=== PATIENT | male | born 1935 | race Caucasian/White ===

== ENCOUNTER → 2016-11-29 | Outpatient (CLI) | payer BC ==
[~2016-11-29] MED LIST: ALL300 PO; ATOR-24 PO; CLC6 PO; GATI1SOL2 OPL; METO50TA7 PO; MULT-208 PO; PRED-301 PO; PRED1SUS17 OPB; WARF3TAB PO
[2016-11-29 09:34] LABS: BASO % 0.7 %; BASO ABS # 0.03 K/uL (0-0.2); COMPLETE YES; EOS % 4.1 %; HEMATOCRIT 39.3 % (42-52); IG% 0.5 %; LYMPH % 34.2 %; LYMPH ABS # 1.52 K/uL (1.2-3.4); MEAN CELL VOLUME 99.7 fL (80-100); MEAN CORPUSCULAR HEMOGLOBIN 34.8 pg (25-34); MEAN CORPUSCULAR HGB CONC 34.9 g/dl (32-36); MEAN PLATELET VOLUME 10.2 fL (7.4-10.4); MONO % 12.6 %; NEUT % 47.9 %; PLATELET COUNT 155 K/uL (130-400); RED BLOOD COUNT 3.94 M/uL (4.7-6.1); WHITE BLOOD COUNT 4.44 K/uL (4.8-10.8)
[2016-11-29 09:49] LABS: ALT/SGPT 20 U/L (12-78); AST/SGOT 28 U/L (15-37); BLOOD UREA NITROGEN 17 mg/dl (7-18); BUN/CREATININE RATIO 18.8 (10-20); CALCIUM 9.5 mg/dl (8.5-10.1); CARBON DIOXIDE 25 mmol/L (21-32); CHLORIDE 106 mmol/L (98-107); CHOLESTEROL 111 mg/dl (0-200); CHOLESTEROL/HDL RATIO 2.1; CREATININE 0.92 mg/dl (0.60-1.40); GLUCOSE 108 mg/dl (70-99); HDL CHOLESTEROL 53 mg/dl; LDL CHOLESTEROL CALCULATED 44 mg/dl; POTASSIUM 4.2 mmol/L (3.5-5.1); SODIUM 139 mmol/L (136-145); TRIGLYCERIDES 68 mg/dl (0-150); VERY LOW DENSITY LIPOPROT CALC 14 mg/dl
[2016-11-29 09:54] LABS: ALB/GLOB RATIO 0.9 (0.9-2); ALKALINE PHOSPHATASE 121 U/L (45-117); FERRITIN 573.1 ng/ml (8.0-388.0); TOTAL IRON BINDING CAPACITY 284 mcg/dl (250-450)
[2016-11-29 10:04] LABS: ESTIMATED AVERAGE GLUCOSE 111 mg/dl; HA1C FLAG Normal (Normal)
== END | disposition home or self-care (01) ==
LOC: C.LAB1850 08:40
PROVIDERS: ATTEND Internal Medicine
DX: N28.9 Disorder of kidney and ureter, unspecified (principal); E87.5 Hyperkalemia; M10.9 Gout, unspecified; E78.5 Hyperlipidemia, unspecified; D64.9 Anemia, unspecified; R73.9 Hyperglycemia, unspecified

== ENCOUNTER → 2017-05-16 | Outpatient (CLI) | payer BC ==
[2017-05-16 12:08] LABS: BASO % 0.4 %; BASO ABS # 0.03 K/uL (0-0.2); COMPLETE YES; EOS % 2.4 %; IG% 0.3 %; LYMPH % 29.7 %; LYMPH ABS # 2.01 K/uL (1.2-3.4); MEAN CELL VOLUME 101.8 fL (80-100); MEAN CORPUSCULAR HEMOGLOBIN 34.7 pg (25-34); MEAN CORPUSCULAR HGB CONC 34.1 g/dl (32-36); MEAN PLATELET VOLUME 10.6 fL (7.4-10.4); NEUT % 55.2 %; PLATELET COUNT 130 K/uL (130-400); RED BLOOD COUNT 3.83 M/uL (4.7-6.1); WHITE BLOOD COUNT 6.76 K/uL (4.8-10.8)
[2017-05-16 12:20] LABS: ALT/SGPT 26 U/L (12-78); AST/SGOT 32 U/L (15-37); BLOOD UREA NITROGEN 19 mg/dl (7-18); BUN/CREATININE RATIO 20.4 (10-20); CALCIUM 9.3 mg/dl (8.5-10.1); CARBON DIOXIDE 27 mmol/L (21-32); CHLORIDE 105 mmol/L (98-107); CREATININE 0.93 mg/dl (0.60-1.40); GLUCOSE 100 mg/dl (70-99); POTASSIUM 3.9 mmol/L (3.5-5.1); SODIUM 137 mmol/L (136-145); URIC ACID 4.1 mg/dl (2.6-7.2)
[2017-05-16 12:31] LABS: ALKALINE PHOSPHATASE 105 U/L (45-117); CHOLESTEROL 115 mg/dl (0-200); CHOLESTEROL/HDL RATIO 2.3; HDL CHOLESTEROL 49 mg/dl; LDL CHOLESTEROL CALCULATED 45 mg/dl; TRIGLYCERIDES 104 mg/dl (0-150); VERY LOW DENSITY LIPOPROT CALC 21 mg/dl
== END | disposition home or self-care (01) ==
LOC: C.LAB1850 10:29
PROVIDERS: ATTEND Internal Medicine
DX: E78.5 Hyperlipidemia, unspecified (principal); I10 Essential (primary) hypertension; D64.9 Anemia, unspecified; I48.0 Paroxysmal atrial fibrillation; M10.9 Gout, unspecified

== ENCOUNTER 2017-07-07 01:10 | Emergency (ER) | payer BC ==
[~2017-07-07] VITALS: Ht 175.3 cm; Wt 79.5 kg
[~2017-07-07 01:10] MED LIST changes: -MULT-208 PO; -PRED1SUS17 OPB
[2017-07-07 01:15] VITALS: TEMP 37; Ht 175.3 cm; Wt 79.5 kg
--- NOTE | 2017-07-07 01:42 | EMERGENCY ROOM VISIT NOTE ---
History First contact with patient: 01:30 Chief Complaint: BLEEDING Stated Complaint: BLEEDING FROM TOOTH EXTRACTION Nursing Triage Summary: pt had tooth pulled on left upper and he is unable to control the bleeding History of Present Illness The patient is a 81 year old male who presents to the Emergency Room with complaints of bleeding gums. The patient states that he had a left upper tooth extracted 2 days ago. He reports that this seemed to be healing well until this morning, when he developed bleeding. He takes Coumadin for a mechanical valve. The patient denies any pain. He denies any puslike drainage. Review of Systems A complete 10 point review of systems was reviewed with the patient with pertinent positives and negatives as per history of present illness. All else were negative. Social History Smoking Status: Never Smoker Alcohol Use: none Drug Use: none Marital Status: Occupation Status: retired Current/Historical Medications Scheduled Atorvastatin (Lipitor), 40 MG PO HS Metoprolol Succ (Toprol Xl) (Toprol-Xl), 50 MG PO QAM Multiple Vitamins W/ Minerals (Daily Multi), 1 TAB PO DAILY Prednisolone Acetate (Ophth) (Prednisolone Acetate), 3 DROPS OPB TID Warfarin Sodium (Coumadin), 3 MG PO QPM Scheduled PRN Allopurinol (Allopurinol), 300 MG PO DAILY PRN for GOUT Colchicine (Colcrys), 0.6 MG PO DAILY PRN for GOUT Prednisone (Prednisone), 5 MG PO DAILY PRN for GOUT Physical Exam Vital Signs Date Time Temp Pulse Resp B/P (MAP) Pulse Ox O2 Delivery O2 Flow Rate FiO2 07/07/17 03:00 62 18 106/68 97 07/07/17 01:15 37.0 74 18 149/78 95 Room Air Physical Exam VITALS: Vitals are noted on the nurse's note and reviewed by myself. Vital signs stable. GENERAL: This is a 81-year-old male, resting comfortably in bed, well-developed well-nourished. SKIN: There is some bruising to the left cheek. MOUTH: There is evidence of recent extraction of tooth #12. There is mild oozing blood around the sutures. There is no active bleeding. NEURO: Patient was alert and oriented to person place and time. Medical Decision & Procedures Laboratory Results 07/07/17 01:52 Red Blood Count 3.77, Mean Corpuscular Volume 100.5, Mean Corpuscular Hemoglobin 33.2, Mean Corpuscular Hemoglobin Concent 33.0, Mean Platelet Volume 9.7, Neutrophils (%) (Auto) 57.0, Lymphocytes (%) (Auto) 28.5, Monocytes (%) ( Auto) 10.1, Eosinophils (%) (Auto) 3.4, Basophils (%) (Auto) 0.5, Neutrophils # (Auto) 3.41, Lymphocytes # (Auto) 1.70, Monocytes # (Auto) 0.60, Eosinophils # ( Auto) 0.20, Basophils # (Auto) 0.03 Test 07/07/17 01:52 White Blood Count 5.97 K/uL (4.8-10.8) Red Blood Count 3.77 M/uL (4.7-6.1) Hemoglobin 12.5 g/dL (14.0-18.0) Hematocrit 37.9 % (42-52) Mean Corpuscular Volume 100.5 fL (80-100) Mean Corpuscular Hemoglobin 33.2 pg (25-34) Mean Corpuscular Hemoglobin Concent 33.0 g/dl (32-36) Platelet Count 129 K/uL (130-400) Mean Platelet Volume 9.7 fL (7.4-10.4) Neutrophils (%) (Auto) 57.0 % Lymphocytes (%) (Auto) 28.5 % Monocytes (%) (Auto) 10.1 % Eosinophils (%) (Auto) 3.4 % Basophils (%) (Auto) 0.5 % Neutrophils # (Auto) 3.41 K/uL (1.4-6.5) Lymphocytes # (Auto) 1.70 K/uL (1.2-3.4) Monocytes # (Auto) 0.60 K/uL (0.11-0.59) Eosinophils # (Auto) 0.20 K/uL (0-0.5) Basophils # (Auto) 0.03 K/uL (0-0.2) RDW Standard Deviation 52.5 fL (36.4-46.3) RDW Coefficient of Variation 14.4 % (11.5-14.5) Immature Granulocyte % (Auto) 0.5 % Immature Granulocyte # (Auto) 0.03 K/uL (0.00-0.02) Prothrombin Time 24.9 SECONDS (9.0-12.0) Prothromb Time International Ratio 2.2 (0.9-1.1) Activated Partial Thromboplast Time 40.2 SECONDS (21.0-31.0) Partial Thromboplastin Ratio 1.5 Medications Administered Medications (Trade) Dose Ordered Sig/Emily Route Start Time Stop Time Status Last Admin Dose Admin Aminocaproic Acid/ Sterile Water DOSE: Hold 10ml of solut... NOW STAT PO 07/07/17 02:27 07/07/17 02:28 DC 07/07/17 02:54 80 ML Medical Decision The patient was evaluated as above. The packing was removed from the area of the tooth extraction. There was some oozing bleeding around the sutures. PT/ INR was checked and is mildly subtherapeutic. Patient has a mild anemia which is normal for him. The bleeding slowed down throughout his stay. Patient was given Amicar mouthwash. He will follow-up with his dentist. He verbalized understanding of my assessment and treatment plan was discharged home in good condition. Medication Reconcilliation Current Medication List: was personally reviewed by me Blood Pressure Screening Patient's blood pressure: Normal blood pressure Impression Primary Impression: Bleeding from wound Departure Information Dispostion Home / Self-Care Condition GOOD Referrals No Doctor, Assigned (PCP) Patient Instructions [facility] Additional Instructions Hold 10 mL of the Amicar solution in your mouth in the area of the dental extraction for 2 minutes, then spit out. Repeat this every 1-2 hours until the solution is gone. Call your dentist on Saturday to schedule follow-up. Return to the emergency department with increased bleeding or any other new/ concerning symptoms.
[2017-07-07] MEDS ORDERED: PRED1SUS17 OPB (02:00)
[2017-07-07] MEDS ORDERED: MULT-208 PO (02:00)
[2017-07-07 02:06] LABS: BASO % 0.5 %; BASO ABS # 0.03 K/uL (0-0.2); COMPLETE YES; EOS % 3.4 %; HEMATOCRIT 37.9 % (42-52); IG% 0.5 %; LYMPH % 28.5 %; MEAN CELL VOLUME 100.5 fL (80-100); MEAN CORPUSCULAR HEMOGLOBIN 33.2 pg (25-34); MEAN PLATELET VOLUME 9.7 fL (7.4-10.4); MONO % 10.1 %; PLATELET COUNT 129 K/uL (130-400); RED BLOOD COUNT 3.77 M/uL (4.7-6.1); WHITE BLOOD COUNT 5.97 K/uL (4.8-10.8)
[2017-07-07 02:11] LABS: INR 2.2 (0.9-1.1); PARTIAL THROMBOPLASTIN RATIO 1.5; PROTHROMBIN TIME (PATIENT) 24.9 SECONDS (9.0-12.0)
[2017-07-07] MEDS ORDERED: AMINOCAPROIC ACID INJ 5,000 MG, WATER, STERILE FOR INJ 80 ML PO STA ×2 (02:27)
[2017-07-07] MEDS ORDERED: AMINOCAPROIC (AMICAR) 5% MOUTHWASH PO ONE (02:30)
[2017-07-07 03:00] VITALS: BP 106/68; PULSE 62; O2SAT 97
== END 2017-07-07 03:01 | disposition home or self-care (01) ==
LOC: C.EDB 01:11
DX: K91.840 Postprocedural hemorrhage of a digestive system organ or structure following a digestive system procedure (principal); Y84.8 Other medical procedures as the cause of abnormal reaction of the patient, or of later complication, without mention of misadventure at the time of the procedure; Z98.818 Other dental procedure status; Z95.2 Presence of prosthetic heart valve; Z79.01 Long term (current) use of anticoagulants; Z79.899 Other long term (current) drug therapy; D64.9 Anemia, unspecified

== ENCOUNTER → 2017-12-26 | Outpatient (CLI) | payer BC ==
[~2017-12-26] MED LIST changes: -GATI1SOL2 OPL; -METO50TA7 PO; +METO50TA8 PO; +MULT-208 PO; +PRED1SUS17 OPB
--- NOTE | 2017-12-26 11:13 | DIAGNOSTIC IMAGING REPORT ---
CHEST 2 VIEWS ROUTINE CLINICAL HISTORY: R05 [id number] dyspnea COMPARISON STUDY: No previous studies for comparison. FINDINGS: Prior median sternotomy and valve replacement. Bipolar cardiac pacemaker. Mild interstitial prominence throughout both hemithoraces. No well-defined focal infiltrate. IMPRESSION: Mild that made in lower lung interstitial prominence bilaterally. This is nonspecific but may indicate a mild basilar pneumonitis. The above report was generated using voice recognition software. It may contain grammatical, syntax or spelling errors. Electronically signed by: Darian Thomas M.D. 12/26/2017 11:11 AM Dictated Date/Time: 12/26/2017 11:10 AM
== END | disposition home or self-care (01) ==
LOC: C.RAD1850 11:03
PROVIDERS: ATTEND Internal Medicine
DX: R05 Cough (principal); R91.8 Other nonspecific abnormal finding of lung field

== ENCOUNTER → 2018-01-31 | Outpatient (CLI) | payer BC ==
--- NOTE | 2018-01-31 09:05 | DIAGNOSTIC IMAGING REPORT ---
CHEST 2 VIEWS ROUTINE HISTORY: COUGH COMPARISON: Chest 12/26/2017. FINDINGS: No new focal lung consolidations. The heart is normal in size. Left-sided dual-chamber pacemaker. Poststernotomy changes. Cardiac valve prosthesis. Cholecystectomy. Mild bibasilar interstitial thickening which is likely chronic. IMPRESSION: No significant change compared to the prior study. No acute process. Electronically signed by: Rainer Charles M.D. 01/31/2018 9:04 AM Dictated Date/Time: 01/31/2018 8:57 AM
== END ==
LOC: C.RAD1850 08:39
PROVIDERS: ATTEND Physician Assistant
DX: R05 Cough (principal)

== ENCOUNTER → 2018-02-27 | Outpatient (CLI) | payer BC ==
[2018-02-27 10:23] LABS: HEMATOCRIT 37.7 % (42-52); HEMOGLOBIN 12.9 g/dL (14.0-18.0); MEAN CORPUSCULAR HEMOGLOBIN 34.2 pg (25-34); MEAN CORPUSCULAR HGB CONC 34.2 g/dl (32-36); PLATELET COUNT 175 K/uL (130-400); RED CELL DISTRIBUTION WIDTH CV 14.5 % (11.5-14.5); RED CELL DISTRIBUTION WIDTH SD 52.9 fL (36.4-46.3)
[2018-02-27 10:37] LABS: ALT/SGPT 17 U/L (12-78); AST/SGOT 29 U/L (15-37); BLOOD UREA NITROGEN 18 mg/dl (7-18); CARBON DIOXIDE 27 mmol/L (21-32); CHOLESTEROL 72 mg/dl (0-200); GLUCOSE 99 mg/dl (70-99); LDL CHOLESTEROL CALCULATED 23 mg/dl; POTASSIUM 3.7 mmol/L (3.5-5.1); SODIUM 133 mmol/L (136-145); URIC ACID 4.9 mg/dl (2.6-7.2)
[2018-02-27 11:07] LABS: HEMOGLOBIN A1C 5.7 % (4.5-5.6)
== END | disposition home or self-care (01) ==
LOC: C.LAB1850 09:05
PROVIDERS: ATTEND Internal Medicine
DX: E78.5 Hyperlipidemia, unspecified (principal); M10.9 Gout, unspecified; R73.9 Hyperglycemia, unspecified

== ENCOUNTER → 2018-02-28 | Outpatient (CLI) | payer BC | END | disposition home or self-care (01) | LOC: C.LABSPEC 08:48 | PROVIDERS: ATTEND Physician Assistant | DX: R19.7 Diarrhea, unspecified (principal) ==

== ENCOUNTER → 2018-03-01 | Outpatient (CLI) | payer BC | END | disposition home or self-care (01) | LOC: C.LABSPEC 09:10 | PROVIDERS: ATTEND Physician Assistant | DX: R19.7 Diarrhea, unspecified (principal) ==

== ENCOUNTER → 2018-05-09 | Outpatient (CLI) | payer BC | END | disposition home or self-care (01) | LOC: C.LABSPEC 14:14 | PROVIDERS: ATTEND Internal Medicine | DX: R19.7 Diarrhea, unspecified (principal); A04.72 Enterocolitis due to Clostridium difficile, not specified as recurrent ==

== ENCOUNTER → 2018-05-26 | Outpatient (CLI) | payer BC | END | disposition home or self-care (01) | LOC: C.LABSPEC 09:57 | PROVIDERS: ATTEND Internal Medicine | DX: A04.72 Enterocolitis due to Clostridium difficile, not specified as recurrent (principal) ==

== ENCOUNTER 2022-06-21 12:58 | Inpatient (IN) ==
[2022-06-21] MEDS ORDERED: ALBUT/IPRATROP 3MG/0.5MG NEB 3 ML VIAL NEB STA ×2 (13:24→14:26)
[2022-06-21 14:07] LABS: Base Excess VBG 10.2 mEq/L; HCO3 VBG 33 mmol/L; Oxygen Saturation VBG < 60.0 %; PCO2 VBG 37 mmHg (38-50); PO2 VBG 13 mmHg; pH VBG 7.56 (7.36-7.41)
[2022-06-21 14:18] LABS: Basophils # (auto) 0.01 K/uL (0-0.2); Basophils % (auto) 0.1 %; Eosinophils # (auto) 0.01 K/uL (0-0.50); Eosinophils % (auto) 0.1 %; Hematocrit (blood only) 34.2 % (40.1-51.0); Hemoglobin 11.7 g/dl (14.0-18.0); Immature Granulocytes # (auto) 0.11 K/uL (0.00-0.02); Immature Granulocytes % (auto) 1.2 %; Lymphocytes # (auto) 0.71 K/uL (1.2-3.4); Mean Corpuscular Hgb Conc 34.2 g/dL (32.0-36.0); Mean Corpuscular Volume 96.3 fL (80.0-100.0); Mean Platelet Volume 10.1 fL (9.4-12.4); Monocytes # (auto) 0.46 K/uL (0.24-0.82); Monocytes % (auto) 5.2 %; Neutrophils # (auto) 7.61 K/uL (1.4-6.5); Neutrophils % (auto) 85.4 %; Platelet Count 217 K/uL (130-400); RDW Coefficient of Variation 13.6 % (11.5-14.5); RDW Standard Deviation 48.7 fL (36.4-46.3); Red Blood Count 3.55 M/uL (4.63-6.08); White Blood Count 8.91 K/ul (4.8-10.8)
--- NOTE | 2022-06-21 14:19 | XRay Report ---
XR chest 1V portable HISTORY: 86 years-old Male Chest Pain acute atypical chest pain COMPARISON: Chest radiographs 06/08/2022 TECHNIQUE: Portable AP view of the chest FINDINGS: Cardiac mediastinal and hilar silhouettes are unchanged. Question pulmonary arterial hypertension. Pr ior median sternotomy with cardiac valvular prosthesis and left subclavian pacer. No pneumothorax. Un changed reticular interstitial coarsening. No pneumothorax, large pleural effusion or new airspace co nsolidation identified. Bones appear grossly intact. Surgical clips of the upper abdomen. IMPRESSION: Pulmonary fibrosis without acute process. ACT 112: Negative or not required by law. The above report was generated using voice recognition software. It may contain grammatical, syntax o r spelling errors. Electronically signed by: Rafa Jackson M.D. 06/21/2022 2:18 PM
[2022-06-21] MEDS ORDERED: methylPREDNISolone 125 MG/2 ML VIAL IV STA (14:26)
[2022-06-21 14:39] LABS: Influenza A virus by PCR Negative (Neg); Influenza B virus by PCR Negative (Neg); RSV by PCR Negative (Neg)
[2022-06-21 14:40] LABS: Anion Gap 8 (3-11); BUN Creatinine Ratio 37.7 (10-20); Blood Urea Nitrogen 29 mg/dl (6-23); Calcium 9.2 mg/dl (8.5-10.1); Carbon Dioxide 30 mmol/L (21-32); Chloride 89 mmol/L (98-107); Est GFR (African American) 96.6 ml/min; Est GFR (Non-African American) 83.3 ml/min; Glucose 186 mg/dl (70-99(Fasting)); Lipase 31 U/L (11-82); Potassium 3.4 mmol/L (3.5-5.1); Sodium 127 mmol/L (136-145)
[2022-06-21 14:41] LABS: Troponin I High Sensitivity 20.5 pg/ml (0-20)
[2022-06-21 14:50] LABS: SARS CoV2 RNA(COVID-19) InHosp POSITIVE (Negative)
[2022-06-21 14:59] LABS: INR 3.3 (0.9-1.1); Partial Thromboplastin Ratio 1.8; Prothrombin Time 33.2 Seconds (9.0-12.0)
[2022-06-21 15:57] LABS: Partial Thromboplastin Time 49.8 Seconds (21.0-31.0)
--- NOTE | 2022-06-21 16:22 | History & Physical Report ---
Date of Service June 21, 2022 Assessment & Plan (1) Acute exacerbation of idiopathic pulmonary fibrosis: Plan: Now needing increased supplemental O2, but really the issue is his significant work of breathing. RR presently 50-60 times per minute. - BiPap ordered - Evaluated by ICU attending; plan for PCU as patient is now DNR/DNI - Steroids, breathing treatments - Add procalcitonin. If positive, would consider abx as temp is 37.6. - Added morphine solution for comfort. (2) Expressive aphasia: Plan: In ER at approx. 3:30pm, daughter reported new onset expressive aphasia. Mostly Wernicke's where patient is trying to answer and answers with nonsensical words. Neuro exam otherwise non-focal. - With INR of 3.3, he could not get get tPA. He is not stable for CT at this point, so will attempt to stabilize from breathing standpoint and discuss imaging with ICU provider. - Re-evaluated at 5:22pm; speech is now mostly returned to normal. (3) COVID-19: Plan: First symptoms possible ~06/08 vs. 06/20. Had some transient shortness of breath a few days after ER visit on 06/05 that resolved. Now with increased WOB as above. - Dexamethasone - Remdesivir (4) Hyponatremia: Plan: Na was 127 on admission. Likely low solute with SIADH possible. - Urine osms - Monitor (5) CAD (coronary artery disease): Plan: - Continue statin as able (6) Paroxysmal A-fib: Plan: With complete heart block in paced rhythm. - INR 3.3 on presentation - Hold warfarin (7) HTN (hypertension): Plan: - Hold home meds for now (8) DVT prophylaxis: Plan: SCDs, warfarin for afib DNR/DNI - Initially wanted to be full code, but after discussion with ICU attending, decided to be DNR/DNI. Willing to trial BiPap. Will continue plan for treatment, but also add morphine for shortness of breath. Will consult pal liative care. History of Present Illness Primary Care Provider: Benoit Stauffer MD 86yo M w/ hx of advanced IPF who presents with increased shortness of breath. Was in the ER in late May with constipation. Had increased shortness of breath a few days after that. Was seen by pulm on 08/30 with steroids. Somewhat improved, but now worse. Daughter reports work of breathing has increased substantially in the last 24 hours. In the ER on interview, he responds somewhat sensibly, but responds with word salad at times, mixing up words and saying things like "They wanted me to go get the gasoline." Appears to understand everything and follows commands. Allergies Allergy/AdvReac Type Severity Reaction Status Date / Time No Known Drug Allergies Allergy Unknown Verified 06/21/22 15:31 Home Medications Medication Instructions Recorded Confirmed Type metoprolol succinate 50 mg 50 mg PO QAM #90 tabs 12/13/20 06/21/22 Rx tablet,extended release 24 hr allopurinol 300 mg tablet 300 mg PO DAILY #90 tabs 02/19/22 06/21/22 Rx amoxicillin 500 mg tablet 500 mg PO .COMPLEX #4 tabs 02/19/22 06/21/22 Rx warfarin 3 mg tablet 3 mg PO QPM #90 tabs 02/19/22 06/21/22 Rx atorvastatin 20 mg tablet 20 mg PO DAILY #90 tabs 03/08/22 06/21/22 Rx Oxygen Home #4 L 06/12/22 06/21/22 Rx Portable Oxygen #1 ea 06/12/22 06/21/22 Rx prednisone 10 mg tablet 30 mg PO DAILY 5 days #15 tabs 06/12/22 06/21/22 Rx Past Med/Surg History Medical History Acute exacerbation of idiopathic pulmonary fibrosis Anemia Anticoagulant long-term use Elevated prostate specific antigen (PSA) Hearing loss High serum ferritin HTN (hypertension) Hyperlipidemia Hypoxemia Hypoxemia Interstitial lung disease IPF (idiopathic pulmonary fibrosis) Mediastinal adenopathy Multiple lung nodules on CT Pacemaker Paroxysmal A-fib Paroxysmal ventricular tachycardia Subdural hematoma (01/2019) Surgical History Hx of cholecystectomy Hx of tonsillectomy 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) S/P craniotomy (01/2019) Family History Father Lung cancer Sister Breast cancer Unknown Hypertension Other Anticoagulant long-term use Family history non-contributory Hyperlipidemia Pacemaker Denies family history of Colon cancer Ovarian cancer Prostate cancer Myocardial infarction Social History Smoking Status: Former smoker Tobacco Type: Cigarettes Age Quit Using Tobacco: 41; packs per day: 0.25; Years Smoked: 4; Cigarettes Per Day: 1/4 of a pack; Number of Years Since Quit: 45; Second Hand Exposure: Yes; Hx Alcohol Use: Yes Alcohol type: beer Alcohol Intake Frequency Comment: 1-2 per day Hx Substance Use: No Preferred Language: Urdu Communication Ability: Effective Visual Impairment: No Limitations Hearing Ability: Normal [employer] Required: No Beliefs That Will Affect Care: None marital status: Current Living Situation: Alone current occupational status: retired Feels Safe at Home: Yes Childhood Exposure to Second-Hand Smoke: Yes Dental Care, Regularly: Yes Physical Activity Frequency: Does not Exercise Seatbelt Use: always Sunscreen Use: No Assistive Devices: None Review of Systems Review of Systems: All systems reviewed & are unremarkable except as noted in HPI & below Physical Exam Constitutional: + acute distress, + ill appearing and + cachectic Eyes: EOM intact bilaterally; no conjunctival abnormality ENMT: external ear and nose normal, oropharynx normal Neck: trachea midline, no thyromegaly normal visual inspection Respiratory: + respiratory distress, + uses accessory muscles and + tachypneic; no cough and + not able to speak in complete sentence Auscul tation: + crackles Cardiovascular: RRR, no murmur, no edema Gastrointestinal (Abdomen): Inspection/Auscultation: abdomen normal to inspection; abdomen not distended Musculoskeletal: no cyanosis or clubbing, extremities motor strength 5/5 Skin: no rashes, warm and dry Neurologic: moves all extremities and awake Speech / Cognition: + expressive aphasia (Mixes up lots of words; has some trouble getting them out) Psychiatric: Orientation: alert, oriented to person and cooperative Results & Data Results & Data ([facility]) Vital Signs (Past 12 Hours) Vital Signs Temp Pulse Pulse Resp BP BP Pulse Ox 06/21/22 15:59 88 20 107/56 L 95 06/21/22 13:48 06/21/22 13:34 5 L 06/21/22 13:33 89 20 98/55 L 99 06/21/22 13:04 37.6 C H 93 H 17 115/65 100 O2 Del Method O2 Flow Rate 06/21/22 15:59 Nasal Cannula 2 06/21/22 13:48 Nasal Cannula 5 06/21/22 13:34 Oxymask, Nebulizer 5 06/21/22 13:33 Nasal Cannula 5 06/21/22 13:04 Room Air Code Status & VTE Plan VTE Prophylaxis Plan VTE Prophylaxis will be ordered: Yes PG Care Time/CCT Total # of Minutes Spent Total Time Spent with Patient: Total time spent is greater than 50% in coordination of care (as documented) at patient's floor/unit and/or counseling patient: Coding Level of Care Code 12342 Initial Inpt Care Lvl 3 Diagnoses Acute exacerbation of idiopathic pulmonary fibrosis J84.112 Expressive aphasia R47.01 COVID-19 U07.1 Hyponatremia E87.1 CAD (coronary artery disease) I25.10 Associated angina: without angina Coronary Disease-Associated Artery/Lesion type: [place] artery [place] vs. transplanted heart: [place] heart Paroxysmal A-fib I48.0 HTN (hypertension) I10 DVT prophylaxis Z29.9 (1) CAD (coronary artery disease) Associated angina: without angina Coronary Disease-Associated Artery/Lesion type: [place] artery [place] vs. transplanted heart: [place] heart Qualified Code(s): I25.10 - Atherosclerotic heart disease of [place] coronary artery without angina pectoris
--- NOTE | 2022-06-21 16:48 | Critical Care Consultation ---
Date of Consultation June 21, 2022 Assessment & Plan (1) Acute and chronic respiratory failure with hypoxia: Reason Critically Ill: 86-year-old male with idiopathic pulmonary fibrosis: End- stage with acute on chronic hypoxic respiratory failure and COVID-19 positivity PLAN: Resp: Acute exacerbation of end-stage idiopathic pulmonary fibrosis -Recommend trial of high-dose steroids COVID-19 -Daughter requesting ivermectin: Not indicated -Trial of remdesivir -Antibiotics for community-acquired pneumonia: Bitterly unclear benefit -DNI in event of respiratory insufficiency -Focus more on quality of life versus extension of life CV: History sick sinus syndrome/complete heart block -Pacemaker present Fluids/Renal: Limit extraneous fluids in an attempt to limit pulmonary edema ID: See COVID-pneumonia above GI/Nutrition: Agreeable with diet as patient wishes -Focus more on comfort Heme: Systemic anticoagulation -Trend INR DVT prophylaxis: Therapeutic INR Endocrine: Steroids for exacerbation of IPF Vascular access: Peripheral IVs Code Status: DNR/DNI -Family requesting reconciliation analyst for last rights Disposition: Inpatient with isolation -Would consider at home hospice, patient desires to transition to outpatient management if possible -Patient critically ill, discussed with hospitalist service, focusing more on patient comfort versus aggressive treatment -Believe the patient is an end-stage, terminal condition with regards to his restrictive lung disease and is at high risk for severe decompensation. (2) COVID-19: (3) Sarcopenia: (4) IPF (idiopathic pulmonary fibrosis): (5) Acute exacerbation of idiopathic pulmonary fibrosis: History of Present Illness Reason for Consultation: Acute on chronic hypoxic respiratory failure, COVID-19 positive Requesting Physician: Mendez Mcpherson Attending Physician: Mendez Mcpherson History of Present Illness Patient is an 86-year-old male with a significant past medical history for idiopathic pulmonary fibrosis who was recently within the last 3 months started on oxygen therapy. I have reviewed the pulmonary outpatient notes, patient was referred to palliative care as he has significant sarcopenia and trialed on steroids. He presented to the emergency department today for increasing hypoxia and was found to be COVID-positive. Initial discussions with the hospitalist service indicated that the patient was desiring full aggressive treatment including possible intubation and mechanical ventilation. During my evaluation the patient had significant dyspnea with conversation. The history was supplemented from medical records with additional history coming from the patient's daughter at bedside. We discussed long-term cares and probable outcome, he has a DLCO of 40%, is on chronic oxygen therapy, and if he were to be intubated I did not see any significant probability of him being able to liberate from the ventilator and would likely necessitate tracheostomy should he survive the initial hypoxic events associated with COVID induced pneumonia. Patient was able to clarify that he would like to pass away with dignity and w ould rather focus more on comfort. Ideally he would like to transfer home if possible. We discussed risks and benefits of intubation as well as noninvasive mechanical ventilation with a mask, there is acknowledgment that even the CPAP/BiPAP mask would be significantly uncomfortable after 24 to 48 hours. Patient and patient's daughter were in agreement with DNR/DNI with continuing current treatments which are limited in the setting of COVID-19 and focusing more on patient comfort. Allergies Allergy/AdvReac Type Severity Reaction Status Date / Time No Known Drug Allergies Allergy Unknown Verified 06/21/22 15:31 Home Medications Medication Instructions Recorded Confirmed Type metoprolol succinate 50 mg 50 mg PO QAM #90 tabs 12/13/20 06/21/22 Rx tablet,extended release 24 hr allopurinol 300 mg tablet 300 mg PO DAILY #90 tabs 02/19/22 06/21/22 Rx amoxicillin 500 mg tablet 500 mg PO .COMPLEX #4 tabs 02/19/22 06/21/22 Rx warfarin 3 mg tablet 3 mg PO QPM #90 tabs 02/19/22 06/21/22 Rx atorvastatin 20 mg tablet 20 mg PO DAILY #90 tabs 03/08/22 06/21/22 Rx Oxygen Home #4 L 06/12/22 06/21/22 Rx Portable Oxygen #1 ea 06/12/22 06/21/22 Rx prednisone 10 mg tablet 30 mg PO DAILY 5 days #15 tabs 06/12/22 06/21/22 Rx Patient History Medical History Acute exacerbation of idiopathic pulmonary fibrosis Anemia Anticoagulant long-term use Elevated prostate specific antigen (PSA) Hearing loss High serum ferritin HTN (hypertension) Hyperlipidemia Hypoxemia Hypoxemia Interstitial lung disease IPF (idiopathic pulmonary fibrosis) Mediastinal adenopathy Multiple lung nodules on CT Pacemaker Paroxysmal A-fib Paroxysmal ventricular tachycardia Subdural hematoma (01/2019) Surgical History Hx of cholecystectomy Hx of tonsillectomy 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) S/P craniotomy (01/2019) Family History Father Lung cancer Sister Breast cancer Unknown Hypertension Other Anticoagulant long-term use Family history non-contributory Hyperlipidemia Pacemaker Denies family history of Colon cancer Ovarian cancer Prostate cancer Myocardial infarction Social History Smoking Status: Former smoker Tobacco Type: Cigarettes Age Quit Using Tobacco: 41; packs per day: 0.25; Years Smoked: 4; Cigarettes Per Day: 1/4 of a pack; Number of Years Since Quit: 45; Second Hand Exposure: Yes; Hx Alcohol Use: No Hx Substance Use: No Preferred Language: Mohawk Communication Ability: Effective Visual Impairment: No Limitations Hearing Ability: Normal Director Audience Marketing Required: No Beliefs That Will Affect Care: Anabaptist Anabaptist Beliefs: Jehovah'S Witness marital status: Current Living Situation: Alone current occupational status: retired Feels Safe at Home: Yes Childhood Exposure to Second-Hand Smoke: Yes Dental Care, Regularly: Yes Physical Activity Frequency: Does not Exercise Seatbelt Use: always Sunscreen Use: No Assistive Devices: Hearing Aid - Bilateral and Oxygen - Continuous Review of Systems Review of Systems: Significant dyspnea with minimal exertion: Conversation Physical Exam Physical Exam: General: Alert. nontoxic. Frail in appearance, obvious sarcopenia prominent cheekbones Skin: Warm, dry, Head: Atraumatic Ears, nose, mouth and throat: airway patent Cardiovascular: Normal peripheral perfusion Respiratory: Obvious tachypnea, no significant respiratory distress Gastrointestinal: Non distended Musculoskeletal: No deformity Results & Data Results & Data ([facility]) Vital Signs (Past 12 Hours) Vital Signs Temp Pulse Pulse Resp BP BP Pulse Ox 06/21/22 15:59 88 20 107/56 L 95 06/21/22 13:48 06/21/22 13:34 5 L 06/21/22 13:33 89 20 98/55 L 99 06/21/22 13:04 37.6 C H 93 H 17 115/65 100 O2 Del Method O2 Flow Rate 06/21/22 15:59 Nasal Cannula 2 06/21/22 13:48 Nasal Cannula 5 06/21/22 13:34 Oxymask, Nebulizer 5 06/21/22 13:33 Nasal Cannula 5 06/21/22 13:04 Room Air Critical Care Results & Data Vital Signs (Past 12 Hours) Vital Signs Temp Pulse Pulse Resp BP Pulse Ox O2 Del Method 06/22/22 10:22 60 06/22/22 07:10 36.6 C 60 18 95/50 L 98 Room Air 06/22/22 03:41 36.4 C L 59 L 14 107/60 95 06/21/22 23:50 36.7 C 62 18 103/47 L 96 Room Air Lab & Micro Results (Past 24 Hours) RBC 3.04 M/uL (4.63-6.08) L 06/22/22 WBC 5.74 K/ul (4.8-10.8) 06/22/22 Hgb 10.2 g/dl (14.0-18.0) L 06/22/22 Hct 29.6 % (40.1-51.0) L 06/22/22 MCV 97.4 fL (80.0-100.0) 06/22/22 MCH 33.6 pg (25.0-34.0) 06/22/22 MCHC 34.5 g/dL (32.0-36.0) 06/22/22 RDW Standard Deviation 48.1 fL (36.4-46.3) H 06/22/22 RDW Coefficient of Variation 13.4 % (11.5-14.5) 06/22/22 Plt Count 160 K/uL (130-400) 06/22/22 MPV 10.0 fL (9.4-12.4) 06/22/22 Neutrophils (%) (Auto) 85.4 % 06/21/22 Lymphocytes (%) (Auto) 8.0 % 06/21/22 Monocytes # (Auto) 0.46 K/uL (0.24-0.82) 06/21/22 Eosinophils # (Auto) 0.01 K/uL (0-0.50) 06/21/22 Immature Granulocyte % (Auto) 1.2 % 06/21/22 Neutrophils # (Auto) 7.61 K/uL (1.4-6.5) H 06/21/22 Lymphocytes # (Auto) 0.71 K/uL (1.2-3.4) L 06/21/22 Monocytes # (Auto) 0.46 K/uL (0.24-0.82) 06/21/22 Eosinophils # (Auto) 0.01 K/uL (0-0.50) 06/21/22 Basophils # (Auto) 0.01 K/uL (0-0.2) 06/21/22 Immature Granulocyte # (Auto) 0.11 K/uL (0.00-0.02) H 06/21 Na 130 mmol/L (136-145) L 06/22/22 K 3.1 mmol/L (3.5-5.1) L 06/22/22 Cl 94 mmol/L (98-107) L 06/22/22 CO2 32 mmol/L (21-32) 06/22/22 Anion Gap 4 (3-11) 06/22/22 BUN 21 mg/dl (6-23) 06/22/22 Creatinine 0.64 mg/dl (0.6-1.4) 06/22/22 Estimated GFR ( Amer) 104.2 ml/min 06/22/22 Estimated GFR (Non-Af Amer) 89.9 ml/min 06/22/22 BUN/Creatinine Ratio 32.8 (10-20) H 06/22/22 Glu 86 mg/dl (70-99(Fasting)) 06/22/22 Ca 8.3 mg/dl (8.5-10.1) L 06/22/22 Mg 1.4 mg/dl (1.7-2.4) L 06/22/22 05:23 Calcium Level 8.3 mg/dl (8.5-10.1) L 06/22/22 05:23 Prothromb Time International Ratio 3.4 (0.9-1.1) H 06/22/22 05 :23 Venous Blood pH 7.56 (7.36-7.41) H 06/21/22 13:45 Venous Blood Partial Pressure CO2 37 mmHg (38-50) L 06/21/22 13 :45 Venous Blood Partial Pressure O2 13 mmHg 06/21/22 13:45 Venous Blood HCO3 33 mmol/L 06/21/22 13:45 Venous Blood Base Excess 10.2 mEq/L 06/21/22 13:45 Venous Blood Oxygen Saturation < 60.0 % 06/21/22 13:45 Arterial Blood pH 7.65 (7.35-7.45) H* 06/21/22 16:45 Arterial Blood Partial Pressure CO2 28 mmHg (35-46) L 06/21/22 16:45 Arterial Blood Partial Pressure O2 102 mmHg (80-95) H 06/21/22 16:45 Arterial Blood HCO3 31 mmol/L (19-24) H 06/21/22 16:45 Arterial Blood Base Excess 10.4 mEq/L (-9-1.8) H 06/21/22 16:45 Arterial Blood Oxygen Saturation 99.1 % (90-95) H 06/21/22 16:4 5 Blood Gas Oxygen Given 2L 06/21/22 16:45 Jaron Test Pos (Pos) 06/21/22 16:45 Diagnostic Findings (Past 24 Hours) Chest X-Ray 06/21/22 13:15 XR chest 1V portable HISTORY: 86 years-old Male Chest Pain acute atypical chest pain COMPARISON: Chest radiographs 06/08/2022 TECHNIQUE: Portable AP view of the chest FINDINGS: Cardiac mediastinal and hilar silhouettes are unchanged. Question pulmonary arterial hypertension. Prior median sternotomy with cardiac valvular prosthesis and left subclavian pacer. No pneumothorax. Unchanged reticular interstitial coarsening. No pneumothorax, large pleural effusion or new airspace consolidation identified. Bones appear grossly intact. Surgical clips of the upper abdomen. IMPRESSION: Pulmonary fibrosis without acute process. ACT 112: Negative or not required by law. The above report was generated using voice recognition software. It may contain grammatical, syntax or spelling errors. Electronically signed by: Rafa Jackson M.D. 06/21/2022 2:18 PM I & O Totals 24 Hours 06/21/22 06/22/22 06/23/22 06:59 06:59 06:59 Intake Total 678.333 / 749.971 9387.667 / 1158.667 Output Total 650 / 650 350 / 350 Balance 28.333 / 28.333 808.667 / 808.667 Cumulative 06/21/22 12:58 thru 06/22/22 09:26 Intake Total 1837.000 Output Total 1000 Balance 837.000 RT Ventilator Mngmt (Last Documented) Ventilator Ordered Settings Respiratory Rate 18 06/22/22 07:10 Ventilator - PT Measurements Respiratory Rate 18 Coding Level of Care Code Critical Care 1st 30-74 mins Diagnoses Acute and chronic respiratory failure with hypoxia J96.21 COVID-19 U07.1 Sarcopenia M62.84 IPF (idiopathic pulmonary fibrosis) J84.112 Acute exacerbation of idiopathic pulmonary fibrosis J84.112 Time Spent (min) 35
[2022-06-21 16:59] LABS: Base Excess ABG 10.4 mEq/L (-9-1.8); HCO3 ABG 31 mmol/L (19-24); Oxygen Saturation ABG 99.1 % (90-95); PCO2 ABG 28 mmHg (35-46); PO2 ABG 102 mmHg (80-95)
[2022-06-21 17:09] LABS: Allen Test Pos (Pos)
[2022-06-21 17:56] LABS: pH ABG 7.65 (7.35-7.45)
--- NOTE | 2022-06-21 18:36 | Emergency Department Note ---
History of Present Illness General Chief Complaint: Shortness of Breath/Dyspnea Stated Complaint: SOB Time Seen by Provider: 06/21/22 13:14 History of Present Illness Provider Complaint: shortness of breath and cough Onset (ago): week(s) (2.5) Severity: moderate Consistency/Duration: + progressively worsening Relieved By: + medication (Prednisone) Exacerbated By: + coughing Context: no recent travel Known history of: other (Pulmonary fibrosis) Associated symptoms: + cough, + sputum production and + chest congestion; no fever, no orthopnea, no paresthesias, no diaphoresis, no nausea/vomiting, no abdominal pain or no rash Related Data Home oxygen amount: 2 liters (Has had to increase it to 5 L because 2 L has not been helping him) Home Medications Medication Instructions Recorded Confirmed Type metoprolol succinate 50 mg 50 mg PO QAM #90 tabs 12/13/20 06/21/22 Rx tablet,extended release 24 hr allopurinol 300 mg tablet 300 mg PO DAILY #90 tabs 02/19/22 06/21/22 Rx amoxicillin 500 mg tablet 500 mg PO .COMPLEX #4 tabs 02/19/22 06/21/22 Rx warfarin 3 mg tablet 3 mg PO QPM #90 tabs 02/19/22 06/21/22 Rx atorvastatin 20 mg tablet 20 mg PO DAILY #90 tabs 03/08/22 06/21/22 Rx Oxygen Home #4 L 06/12/22 06/21/22 Rx Portable Oxygen #1 ea 06/12/22 06/21/22 Rx prednisone 10 mg tablet 30 mg PO DAILY 5 days #15 tabs 06/12/22 06/21/22 Rx Allergies Allergy/AdvReac Type Severity Reaction Status Date / Time No Known Drug Allergies Allergy Unknown Verified 06/21/22 15:31 Past Med/Surg History Medical History Acute exacerbation of idiopathic pulmonary fibrosis Anemia Anticoagulant long-term use Elevated prostate specific antigen (PSA) Hearing loss High serum ferritin HTN (hypertension) Hyperlipidemia Hypoxemia Hypoxemia Interstitial lung disease IPF (idiopathic pulmonary fibrosis) Mediastinal adenopathy Multiple lung nodules on CT Pacemaker Paroxysmal A-fib Paroxysmal ventricular tachycardia Subdural hematoma (01/2019) Surgical History Hx of cholecystectomy Hx of tonsillectomy 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) S/P craniotomy (01/2019) Family History Father Lung cancer Sister Breast cancer Unknown Hypertension Other Anticoagulant long-term use Family history non-contributory Hyperlipidemia Pacemaker Denies family history of Colon cancer Ovarian cancer Prostate cancer Myocardial infarction Social History Smoking Status: Former smoker Tobacco Type: Cigarettes Age Quit Using Tobacco: 41; packs per day: 0.25; Years Smoked: 4; Cigarettes Per Day: 1/4 of a pack; Number of Years Since Quit: 45; Second Hand Exposure: Yes; Hx Alcohol Use: Yes Alcohol type: beer Alcohol Intake Frequency Comment: 1-2 per day Hx Substance Use: No Preferred Language: Welsh Communication Ability: Effective Visual Impairment: No Limitations Hearing Ability: Normal Warehouser Required: No Beliefs That Will Affect Care: None marital status: Current Living Situation: Alone current occupational status: retired Feels Safe at Home: Yes Childhood Exposure to Second-Hand Smoke: Yes Dental Care, Regularly: Yes Physical Activity Frequency: Does not Exercise Seatbelt Use: always Sunscreen Use: No Assistive Devices: None Review of Systems A total of 10 systems reviewed and were otherwise negative Physical Exam Vital Signs: Vital Signs - 24 hr 06/21/22 13:04 06/21/22 13:04 06/21/22 13:33 Temperature 37.6 C H Temperature Source Temporal Artery Sc an Pulse Rate 93 H Pulse Rate [Right Finger] 89 Respiratory Rate 17 20 Respiratory Effort / Characteristics Labored Grunting Labored Blood Pressure 115/65 Blood Pressure [Ri ght Arm] 98/55 L Blood Pressure Idania n 81 Blood Pressure Idania n [Right Arm] 69 Pulse Oximetry 100 99 Oxygen Delivery Me thod Room Air Nasal Cannula Oxygen Flow Rate 5 Sepsis Recent Feve r Within 48 Hours No Sepsis New/Unexpla ined Change in Men alexsander Status N/A Sepsis Action Take n by Nursing No Action Required Pulse Oximetry Pos t Tiitration 06/21/22 13:34 06/21/22 13:48 06/21/22 15:59 Temperature Temperature Source Pulse Rate Pulse Rate [Right Finger] 88 Respiratory Rate 20 Respiratory Effort / Characteristics Blood Pressure Blood Pressure [Ri ght Arm] 107/56 L Blood Pressure Idania n Blood Pressure Idania n [Right Arm] 73 Pulse Oximetry 5 L 95 Oxygen Delivery Me thod Oxymask Nebulizer Nasal Cannula Nasal Cannula Oxygen Flow Rate 5 5 2 Sepsis Recent Feve r Within 48 Hours Sepsis New/Unexpla ined Change in Men alex[place]ander Status Sepsis Action Take n by Nursing Pulse Oximetry Pos t Tiitration 96 06/21/22 17:44 Temperature Temperature Source Pulse Rate Pulse Rate [Right Finger] 78 Respiratory Rate Respiratory Effort / Characteristics Blood Pressure Blood Pressure [Ri ght Arm] 98/56 L Blood Pressure Idania n Blood Pressure Idania n [Right Arm] 70 Pulse Oximetry Oxygen Delivery Me thod Oxygen Flow Rate Sepsis Recent Feve r Within 48 Hours Sepsis New/Unexpla ined Change in Men alexsander Status Sepsis Action Take n by Nursing Pulse Oximetry Pos t Tiitration Physical Exam: Physical Exam HENT: Exam performed. - Head: Normocephalic and atraumatic. - Right Ear: External ear normal. No mastoid tenderness. - Left Ear: External ear normal. No mastoid tenderness. - Mouth/Throat: The oropharynx is clear and moist. No trismus in the jaw. No dental abscesses or uvula swelling. No oropharyngeal exudate or tonsillar abscesses. EYES: Conjunctivae and EOM are normal. Pupils are equal, round, and reactive to light. Right eye exhibits no discharge. Left eye exhibits no discharge. No scleral icterus. NECK: Normal range of motion. Neck supple. No JVD present. No spinous process tenderness present. No carotid bruit present. No rigidity. No tracheal deviation and normal range of motion present. No Brudzinski's sign and no Kernig's sign noted. CV: Normal rate, regular rhythm, normal heart sounds and intact distal pulses. There is no peripheral edema. Palpable radial pulses bue. PULM/CHEST: Tachypneic. Rhonchi bilaterally. Inspiratory rales bilaterally. ABD: The abdomen is soft. MUSC/SKEL: Normal range of motion. There is no peripheral edema, tenderness or deformity. LYMPH: No cervical adenopathy. NEURO: He is alert and oriented to person, place, and time. He has normal strength. No cranial nerve deficit or sensory deficit.GCS eye subscore is 4. GCS verbal subscore is 5. GCS motor subscore is 6. Cerebellar tests wnl. Course Course 1314: The patient was evaluated in room B10. A complete history and physical exam was performed Cardiac monitoring: An order was placed for continuous cardiac monitoring. The monitor shows a rate of 80 with sinus rhythm 1420: EMR reviewed. Patient has been seen by pulmonology at this facility. Patient was recently started on prednisone on June 12, [address] Marrero. Status post 1 DuoNeb treatment the patient states he feels slightly better but he is still tachypneic. Patient be given repeat dose of DuoNeb treatment and Solu-Medrol. 1515: Vital signs stable on supplemental oxygen. Patient reports he feels much better after receiving second DuoNeb and Cymetra. Patient is less tachypneic. Patient is COVID-positive. Chest x-ray shows no infiltrate but does show the pulmonary fibrosis that is known about the patient. Patient's INR is therapeut ic. Patient's VBG shows a alkalotic pH of 7.56 with a venous PCO2 of 37. Sodium 127. High-sensitivity troponin mildly elevated 20.5. Procalcitonin elevated 0.76. Patient will be admitted to the [facility]ist team Dr. Mcpherson notified. Administered Medications Discontinued Medications Albuterol (Albut/Ipratrop 3mg/0.5mg Neb 3 Ml Vial) 3 ml NEB NOW STA; Protocol Stop: 06/21/22 13:25 Last Admin: 06/21/22 13:29 Dose: 3 ml Documented By: ZAMZAM Albuterol (Albut/Ipratrop 3mg/0.5mg Neb 3 Ml Vial) 3 ml NEB NOW STA; Protocol Stop: 06/21/22 14:27 Last Admin: 06/21/22 14:44 Dose: 3 ml Documented By: ZAMZAM Methylprednisolone (Methylprednisolone 125 Mg/2 Ml Vial) 125 mg IV NOW STA Stop: 06/21/22 14:27 Last Admin: 06/21/22 14:44 Dose: 125 mg Documented By: ZAMZAM Medical Decision Making Laboratory Data Result diagrams: 06/21/22 13:45 06/21/22 13:45 Lab Results 06/21/22 06/21/22 06/21/22 Range/Units 13:33 13:45 13:45 WBC 8.91 (4.8-10.8) K/ul RBC 3.55 L (4.63-6.08) M/uL Hgb 11.7 L (14.0-18.0) g/dl Hct 34.2 L (40.1-51.0) % MCV 96.3 (80.0-100.0) fL MCH 33.0 (25.0-34.0) pg MCHC 34.2 (32.0-36.0) g/dL RDW Std Deviation 48.7 H (36.4-46.3) fL RDW Coeff of Jill 13.6 (11.5-14.5) % Plt Count 217 (130-400) K/uL MPV 10.1 (9.4-12.4) fL Immature Gran % (Auto) 1.2 % Neut % (Auto) 85.4 % Lymph % (Auto) 8.0 % [place] % (Auto) 5.2 % Eos % (Auto) 0.1 % Baso % (Auto) 0.1 % Neut # (Auto) 7.61 H (1.4-6.5) K/uL Lymph # (Auto) 0.71 L (1.2-3.4) K/uL [place] # (Auto) 0.46 (0.24-0.82) K/uL Eos # (Auto) 0.01 (0-0.50) K/uL Baso # (Auto) 0.01 (0-0.2) K/uL Immature Gran # (Auto) 0.11 H (0.00-0.02) K/uL PT (9.0-12.0) Seconds INR (0.9-1.1) APTT (21.0-31.0) Seconds PTT Ratio ABG pH (7.35-7.45) ABG pCO2 (35-46) mmHg ABG pO2 (80-95) mmHg ABG HCO3 (19-24) mmol/L ABG O2 Saturation (90-95) % ABG Base Excess (-9-1.8) mEq/L Jaron Test (Pos) VBG pH 7.56 H (7.36-7.41) VBG pCO2 37 L (38-50) mmHg VBG pO2 13 mmHg VBG HCO3 33 mmol/L VBG O2 Saturation < 60.0 % VBG Base Excess 10.2 mEq/L Oxygen Given Sodium (136-145) mmol/L Potassium (3.5-5.1) mmol/L Chloride (98-107) mmol/L Carbon Dioxide (21-32) mmol/L Anion Gap (3-11) BUN (6-23) mg/dl Creatinine (0.6-1.4) mg/dl Est Cr Clr Drug Dosing Est GFR ( Amer) ml/min Est GFR (Non-Af Amer) ml/min BUN/Creatinine Ratio (10-20) Glucose (70-99(Fasting)) mg/dl Calcium (8.5-10.1) mg/dl Troponin I High Sens (0-20) pg/ml Lipase (11-82) U/L Procalcitonin (0-0.5) ng/ml SARS-CoV-2 (PCR) POSITIVE A* (Negative) Influenza Type A (PCR) Negative (Neg) Influenza Type B (PCR) Negative (Neg) RSV (RT-PCR) Negative (Neg) 06/21/22 06/21/22 06/21/22 Range/Units 13:45 13:45 13:45 WBC (4.8-10.8) K/ul RBC (4.63-6.08) M/uL Hgb (14.0-18.0) g/dl Hct (40.1-51.0) % MCV (80.0-100.0) fL MCH (25.0-34.0) pg MCHC (32.0-36.0) g/dL RDW Std Deviation (36.4-46.3) fL RDW Coeff of Jill (11.5-14.5) % Plt Count (130-400) K/uL MPV (9.4-12.4) fL Immature Gran % (Auto) % Neut % (Auto) % Lymph % (Auto) % [place] % (Auto) % Eos % (Auto) % Baso % (Auto) % Neut # (Auto) (1.4-6.5) K/uL Lymph # (Auto) (1.2-3.4) K/uL [place] # (Auto) (0.24-0.82) K/uL Eos # (Auto) (0-0.50) K/uL Baso # (Auto) (0-0.2) K/uL Immature Gran # (Auto) (0.00-0.02) K/uL PT 33.2 H (9.0-12.0) Seconds INR 3.3 H (0.9-1.1) APTT 49.8 H* (21.0-31.0) Seconds PTT Ratio 1.8 ABG pH (7.35-7.45) ABG pCO2 (35-46) mmHg ABG pO2 (80-95) mmHg ABG HCO3 (19-24) mmol/L ABG O2 Saturation (90-95) % ABG Base Excess (-9-1.8) mEq/L Jaron Test (Pos) VBG pH (7.36-7.41) VBG pCO2 (38-50) mmHg VBG pO2 mmHg VBG HCO3 mmol/L VBG O2 Saturation % VBG Base Excess mEq/L Oxygen Given Sodium 127 L (136-145) mmol/L Potassium 3.4 L (3.5-5.1) mmol/L Chloride 89 L (98-107) mmol/L Carbon Dioxide 30 (21-32) mmol/L Anion Gap 8 (3-11) BUN 29 H (6-23) mg/dl Creatinine 0.77 (0.6-1.4) mg/dl Est Cr Clr Drug Dosing Not Reportable Est GFR ( Amer) 96.6 ml/min Est GFR (Non-Af Amer) 83.3 ml/min BUN/Creatinine Ratio 37.7 H (10-20) Glucose 186 H (70-99(Fasting)) mg/dl Calcium 9.2 (8.5-10.1) mg/dl Troponin I High Sens 20.5 H (0-20) pg/ml Lipase 31 (11-82) U/L Procalcitonin 0.76 H (0-0.5) ng/ml SARS-CoV-2 (PCR) (Negative) Influenza Type A (PCR) (Neg) Influenza Type B (PCR) (Neg) RSV (RT-PCR) (Neg) 06/21/22 Range/Units 16:45 WBC (4.8-10.8) K/ul RBC (4.63-6.08) M/uL Hgb (14.0-18.0) g/dl Hct (40.1-51.0) % MCV (80.0-100.0) fL MCH (25.0-34.0) pg MCHC (32.0-36.0) g/dL RDW Std Deviation (36.4-46.3) fL RDW Coeff of Jill (11.5-14.5) % Plt Count (130-400) K/uL MPV (9.4-12.4) fL Immature Gran % (Auto) % Neut % (Auto) % Lymph % (Auto) % [place] % (Auto) % Eos % (Auto) % Baso % (Auto) % Neut # (Auto) (1.4-6.5) K/uL Lymph # (Auto) (1.2-3.4) K/uL [place] # (Auto) (0.24-0.82) K/uL Eos # (Auto) (0-0.50) K/uL Baso # (Auto) (0-0.2) K/uL Immature Gran # (Auto) (0.00-0.02) K/uL PT (9.0-12.0) Seconds INR (0.9-1.1) APTT (21.0-31.0) Seconds PTT Ratio ABG pH 7.65 H* (7.35-7.45) ABG pCO2 28 L (35-46) mmHg ABG pO2 102 H (80-95) mmHg ABG HCO3 31 H (19-24) mmol/L ABG O2 Saturation 99.1 H (90-95) % ABG Base Excess 10.4 H (-9-1.8) mEq/L Jaron Test Pos (Pos) VBG pH (7.36-7.41) VBG pCO2 (38-50) mmHg VBG pO2 mmHg VBG HCO3 mmol/L VBG O2 Saturation % VBG Base Excess mEq/L Oxygen Given 2L Sodium (136-145) mmol/L Potassium (3.5-5.1) mmol/L Chloride (98-107) mmol/L Carbon Dioxide (21-32) mmol/L Anion Gap (3-11) BUN (6-23) mg/dl Creatinine (0.6-1.4) mg/dl Est Cr Clr Drug Dosing Est GFR ( Amer) ml/min Est GFR (Non-Af Amer) ml/min BUN/Creatinine Ratio (10-20) Glucose (70-99(Fasting)) mg/dl Calcium (8.5-10.1) mg/dl Troponin I High Sens (0-20) pg/ml Lipase (11-82) U/L Procalcitonin (0-0.5) ng/ml SARS-CoV-2 (PCR) (Negative) Influenza Type A (PCR) (Neg) Influenza Type B (PCR) (Neg) RSV (RT-PCR) (Neg) Imaging Data Radiologist's Impression: Chest X-Ray 06/21/22 13:15 XR chest 1V portable HISTORY: 86 years-old Male Chest Pain acute atypical chest pain COMPARISON: Chest radiographs 06/08/2022 TECHNIQUE: Portable AP view of the chest FINDINGS: Cardiac mediastinal and hilar silhouettes are unchanged. Question pulmonary arterial hypertension. Prior median sternotomy with cardiac valvular prosthesis and left subclavian pacer. No pneumothorax. Unchanged reticular interstitial coarsening. No pneumothorax, large pleural effusion or new airspace consolidation identified. Bones appear grossly intact. Surgical clips of the upper abdomen. IMPRESSION: Pulmonary fibrosis without acute process. ACT 112: Negative or not required by law. The above report was generated using voice recognition software. It may contain grammatical, syntax or spelling errors. Electronically signed by: Rafa Jackson M.D. 06/21/2022 2:18 PM ECG Data Interpretation: Paced rhythm with rate of 86. QRS 160 QTC 502. No ectopy. [facility] Narrative 1314: The patient was evaluated in room B10. A complete history and physical exam was performed Cardiac monitoring: An order was placed for continuous cardiac monitoring. The monitor shows a rate of 80 with sinus rhythm 1420: EMR reviewed. Patient has been seen by pulmonology at this facility. Patient was recently started on prednisone on June 12, [address] Marrero. Status post 1 DuoNeb treatment the patient states he feels slightly better but he is still tachypneic. Patient be given repeat dose of DuoNeb treatment and Solu-Medrol. 1515: Vital signs stable on supplemental oxygen. Patient reports he feels much better after receiving second DuoNeb and Cymetra. Patient is less tachypneic. Patient is COVID-positive. Chest x-ray shows no infiltrate but does show the pulmonary fibrosis that is known about the patient. Patient's INR is therapeutic. Patient's VBG shows a alkalotic pH of 7.56 with a venous PCO2 of 37. Sodium 127. High-sensitivity troponin mildly elevated 20.5. Procalcitonin elevated 0.76. Patient will be admitted to the [facility] hospitalist team Dr. Mcpherson notified. Impression & Plan COVID-19, Acute exacerbation of idiopathic pulmonary fibrosis, Hyponatremia Discharge Plan Visit Data Chief Complaint: Shortness of Breath/Dyspnea Stated Complaint: SOB ED Provider: Segun Ortega Discharge Problem: COVID-19, Acute exacerbation of idiopathic pulmonary fibrosis, Hyponatremia Patient Disposition: Admitted As Inpatient Forms Stand Alone Forms: My [facility] Prescriptions Prescriptions: No Action metoprolol succinate 50 mg tablet extended release 24 hr 50 mg PO QAM Qty: 90 3RF allopurinol 300 mg tablet 300 mg PO DAILY Qty: 90 1RF amoxicillin 500 mg tablet 500 mg PO .COMPLEX Qty: 4 1RF Rx Instructions: 500 mg PO TAKE 4 TABLETS 1 HOUR BEFORE DENTIST APPOINTMENTS; warfarin 3 mg tablet 3 mg PO QPM Qty: 90 1RF Protocol: Dose Management Condition: Saturday (Week One) Dose/Route: 3 mg Instruction: 1 x 3 mg tablet Condition: Saturday Dose/Route: 1.5 mg Instruction: 0.5 x 3 mg tablets Condition: Saturday Dose/Route: 3 mg Instruction: 1 x 3 mg tablet Condition: Saturday Dose/Route: 3 mg Instruction: 1 x 3 mg tablet Condition: Dose/Route: 1.5 mg Instruction: 0.5 x 3 mg tablets Condition: Saturday Dose/Route: 1.5 mg Instruction: 0.5 x 3 mg tablets Condition: Saturday Dose/Route: 1.5 mg Instruction: 0.5 x 3 mg tablets Condition: Saturday (Week Two) Dose/Route: 1.5 mg Instruction: 0.5 x 3 mg tablets Condition: Saturday Dose/Route: 1.5 mg Instruction: 0.5 x 3 mg tablets Condition: Saturday Dose/Route: 3 mg Instruction: 1 x 3 mg tablet Condition: Saturday Dose/Route: 3 mg Instruction: 1 x 3 mg tablet Condition: Dose/Route: 3 mg Instruction: 1 x 3 mg tablet Condition: Saturday Dose/Route: 1.5 mg Instruction: 0.5 x 3 mg tablets Condition: Saturday Dose/Route: 3 mg Instruction: 1 x 3 mg tablet Protocol Text: Adjustment Start Date: 06/14/22 INR Value: 3.5 INR Date: 06/08/22 Recheck Date: 06/22/22 atorvastatin 20 mg tablet 20 mg PO DAILY Qty: 90 3RF (DME) Oxygen Home Liters Per Minute See Rx Instructions .ROUTE .MEDSUPPLY Qty: 4 0RF Rx Instructions: Continuously humidified oxygen at 4 L/min via nc with exertion and at night (DME) Portable Oxygen Misc See Rx Instructions .Route Qty: 1 0RF Rx Instructions: Test for conserving device - 2 L/min via nasal cannula, lifetime need of 99 years prednisone 10 mg tablet 30 mg PO DAILY 5 Days Qty: 15 0RF Referrals Referrals: ProBenoit MD [Primary Care Provider] -
[2022-06-21] MEDS ORDERED: AZITHROMYCIN 500 MG in DEXTROSE 5% 250 ML IV SCH (19:45)
[2022-06-21] MEDS ORDERED: DOXYCYCLINE HYCLATE 100 MG CAP PO STA (20:05)
[2022-06-21] MEDS ORDERED: ONDANSETRON INJ 2 MG/ML 2 ML VIAL IV PRN (20:38)
[2022-06-21] MEDS ORDERED: MoRPHine SULFATE 5 MG/0.25 ML UDP PO PRN (20:38)
[2022-06-21] MEDS ORDERED: ACETAMINOPHEN 325 MG TAB PO PRN (20:38)
[2022-06-21] MEDS ORDERED: REMDESIVIR 200 MG in SODIUM CHLORIDE 0.9% 210 ML IV STA (20:45)
[2022-06-21] MEDS: SODIUM CHLORIDE 0.9% 1000ML 1,000 ML IV SCH (21:22)
[2022-06-21] MEDS: cefTRIAXone SODIUM 1,000 MG in DEXTROSE 5% 50 ML IV SCH (21:28)
--- NOTE | 2022-06-21 21:32 | Electrocardiogram Report ---
Test Reason : Blood Pressure : / mmHG Vent. Rate : 086 BPM Atrial Rate : 086 BPM P-R Int : 000 ms QRS Dur : 160 ms QT Int : 420 ms P-R-T Axes : 075 269 055 degrees QTc Int : 502 ms Poor data quality, interpretation may be adversely affected Ventricular-paced rhythm Abnormal ECG When compared with ECG of 17-APR-2022 14:11, Vent. rate has increased BY 25 BPM Confirmed by Gabino Padgett ([id number]) on 06/21/2022 9:32:03 PM Referred By: Confirmed By:Gabino Padgett
[2022-06-21 23:50] LABS: BUN Creatinine Ratio 32.9 (10-20); Calcium 8.2 mg/dl (8.5-10.1); Creatinine Clr Calc Pharmacy 55.3 ml/min; Est GFR (African American) 98.7 ml/min; Est GFR (Non-African American) 85.2 ml/min; Potassium 2.8 mmol/L (3.5-5.1)
[2022-06-22] MEDS: POTASSIUM CHLORIDE / WTR 10 MEQ/100 ML PLCT IV SCH ×6 (05:00→11:42)
[2022-06-22 06:09] LABS: Hematocrit (blood only) 29.6 % (40.1-51.0); Hemoglobin 10.2 g/dl (14.0-18.0); Mean Corpuscular Hemoglobin 33.6 pg (25.0-34.0); Mean Corpuscular Hgb Conc 34.5 g/dL (32.0-36.0); Mean Corpuscular Volume 97.4 fL (80.0-100.0); Platelet Count 160 K/uL (130-400); RDW Coefficient of Variation 13.4 % (11.5-14.5); RDW Standard Deviation 48.1 fL (36.4-46.3); Red Blood Count 3.04 M/uL (4.63-6.08); White Blood Count 5.74 K/ul (4.8-10.8)
[2022-06-22 06:30] LABS: INR 3.4 (0.9-1.1)
[2022-06-22 06:41] LABS: BUN Creatinine Ratio 32.8 (10-20); Calcium 8.3 mg/dl (8.5-10.1); Creatinine Clr Calc Pharmacy 63.1 ml/min; Est GFR (African American) 104.2 ml/min; Est GFR (Non-African American) 89.9 ml/min; Magnesium 1.4 mg/dl (1.7-2.4); Potassium 3.1 mmol/L (3.5-5.1)
[2022-06-22] MEDS: SODIUM CHLORIDE 0.9% 1000ML 1,000 ML IV SCH ×2 (09:21→21:04)
[2022-06-22] MEDS: dexAMETHasone 8 MG in SYRINGE 0 ML IV SCH (09:23)
[2022-06-22] MEDS: DOXYCYCLINE HYCLATE 100 MG CAP PO SCH ×2 (09:25→22:05)
[2022-06-22] MEDS ORDERED: MoRPHine SULFATE 5 MG/0.25 ML UDP PO PRN (13:27)
--- NOTE | 2022-06-22 17:28 | Hospitalist Progress Note ---
Date of Service June 22, 2022 Assessment & Plan (1) Acute exacerbation of idiopathic pulmonary fibrosis: Plan: Now needing increased supplemental O2, but really the issue is his significant work of breathing. RR presently 50-60 times per minute. - BiPap ordered - Evaluated by ICU attending; plan for PCU as patient is now DNR/DNI - Steroids, breathing treatments - Add procalcitonin. If positive, would consider abx as temp is 37.6. - Added morphine solution for comfort. will repeat blood work in AM. (2) Expressive aphasia: Plan: In ER at approx. 3:30pm, daughter reported new onset expressive aphasia. Mostly Wernicke's where patient is trying to answer and answers with nonsensical words. Neuro exam otherwise non-focal. - With INR of 3.3, he could not get get tPA. He is not stable for CT at this point, so will attempt to stabilize from breathing standpoint and discuss imaging with ICU provider. - Re-evaluated at 5:22pm; speech is now mostly returned to normal. On 06/22, speech remained normal. (3) COVID-19: Plan: First symptoms possible ~06/08 vs. 06/20. Had some transient shortness of breath a few days after ER visit on 06/05 that resolved. Now with increased WOB as above. - Dexamethasone - Remdesivir (4) Hyponatremia: Plan: Na was 127 on admission. Likely low solute with SIADH possible. - Urine osms - Monitor (5) CAD (coronary artery disease): Plan: - Continue statin as able (6) Paroxysmal A-fib: Plan: With complete heart block in paced rhythm. - INR 3.3 on presentation - Hold warfarin (7) HTN (hypertension): Plan: - Hold home meds for now (8) DVT prophylaxis: Plan: SCDs, warfarin for afib Admission and Anticipated Discharge Date Admission Date: June 21, 2022 Subjective Patient reports feeling much better. His daughter is at bedside. Review of Systems Review of Systems: All systems reviewed & are unremarkable except as noted in HPI & below Physical Exam Physical Exam: Constitutional: NAD, + ill appearing and + cachectic Eyes: EOM intact bilaterally; no conjunctival abnormality ENMT: external ear and nose normal, oropharynx normal Neck: trachea midline, no thyromegaly normal visual inspection Respiratory: no longer using accessory muscles to breath, CTA B/L Cardiovascular: RRR, no murmur, no edema Gastrointestinal (Abdomen): Inspection/Auscultation: abdomen normal to inspection; abdomen not distended Musculoskeletal: no cyanosis or clubbing, extremities motor strength 5/5 Skin: no rashes, warm and dry Neurologic: moves all extremities and awake Speech / Cognition: no longer having aphasia Psychiatric: Orientation: alert, oriented to person and cooperative Results & Data Results & Data ([facility]) Vital Signs (Past 12 Hours) Vital Signs Temp Pulse Pulse Resp BP Pulse Ox O2 Del Method 06/22/22 08:15 Room Air 06/22/22 16:17 36.6 C 60 18 99/49 L 98 Room Air 06/22/22 15:16 60 06/22/22 11:43 36.3 C L 64 18 94/61 L 97 Room Air 06/22/22 10:22 60 06/22/22 07:10 36.6 C 60 18 95/50 L 98 Room Air PG Care Time/CCT Total # of Minutes Spent Total Time Spent with Patient: Total time spent is greater than 50% in coordination of care (as documented) at patient's floor/unit and/or counseling patient: Coding Level of Care Code 29552 Subseq Hosp Care Lvl 3 Diagnoses Acute exacerbation of idiopathic pulmonary fibrosis J84.112 Expressive aphasia R47.01 COVID-19 U07.1 Hyponatremia E87.1 CAD (coronary artery disease) I25.10 Associated angina: without angina Coronary Disease-Associated Artery/Lesion type: [place] artery [place] vs. transplanted heart: kake heart Paroxysmal A-fib I48.0 HTN (hypertension) I10 DVT prophylaxis Z29.9 Time Spent (min) 35 (1) CAD (coronary artery disease) Associated angina: without angina Coronary Disease-Associated Artery/Lesion type: [place] artery [place] vs. transplanted heart: kake heart Qualified Code(s): I25.10 - Atherosclerotic heart disease of k[place] coronary artery without angina pectoris
[2022-06-22] MEDS ORDERED: WARFARIN SOD 3 MG TAB PO STA (18:11)
[2022-06-22] MEDS ORDERED: REMDESIVIR 100 MG in SODIUM CHLORIDE 0.9% 230 ML IV SCH (20:00)
[2022-06-22] MEDS: cefTRIAXone SODIUM 1,000 MG in DEXTROSE 5% 50 ML IV SCH (20:04)
[2022-06-23 06:25] LABS: Hematocrit (blood only) 33.4 % (40.1-51.0); Hemoglobin 11.3 g/dl (14.0-18.0); Immature Granulocytes # (auto) 0.04 K/uL (0.00-0.02); Immature Granulocytes % (auto) 0.6 %; Lymphocytes # (auto) 1.06 K/uL (1.2-3.4); Mean Corpuscular Hemoglobin 33.2 pg (25.0-34.0); Mean Corpuscular Hgb Conc 33.8 g/dL (32.0-36.0); Mean Corpuscular Volume 98.2 fL (80.0-100.0); Mean Platelet Volume 9.4 fL (9.4-12.4); Monocytes # (auto) 0.21 K/uL (0.24-0.82); Monocytes % (auto) 3.2 %; Neutrophils # (auto) 5.31 K/uL (1.4-6.5); Neutrophils % (auto) 80.2 %; Platelet Count 181 K/uL (130-400); RDW Coefficient of Variation 13.6 % (11.5-14.5); White Blood Count 6.62 K/ul (4.8-10.8)
[2022-06-23 06:51] LABS: INR 3.1 (0.9-1.1)
[2022-06-23 06:55] LABS: BUN Creatinine Ratio 36.4 (10-20); Calcium 8.4 mg/dl (8.5-10.1); Est GFR (African American) 102.9 ml/min; Est GFR (Non-African American) 88.8 ml/min
[2022-06-23] MEDS: dexAMETHasone 8 MG in SYRINGE 0 ML IV SCH (08:00)
[2022-06-23] MEDS: DOXYCYCLINE HYCLATE 100 MG CAP PO SCH (08:00)
[2022-06-23] MEDS: SODIUM CHLORIDE 0.9% 1000ML 1,000 ML IV SCH (08:00)
[2022-06-23] MEDS ORDERED: MAGNESIUM SULFATE / D5W 1 GM/100 ML BAG IV SCH (09:00)
--- NOTE | 2022-06-23 11:04 | Discharge Summary ---
Date of Service June 23, 2022 Admission HPI Per Admitting Provider 86yo M w/ hx of advanced IPF who presents with increased shortness of breath. Was in the ER in late May with constipation. Had increased shortness of breath a few days after that. Was seen by pulm on 06/12 with steroids. Somewhat improved, but now worse. Daughter reports work of breathing has increased substantially in the last 24 hours. In the ER on interview, he responds somewhat sensibly, but responds with word salad at times, mixing up words and saying things like "They wanted me to go get the gasoline." Appears to understand everything and follows commands. Principal Diagnosis acute exacerbation of Idiopathic pulmonary fibrosis Discharge Exam Constitutional: NAD, + ill appearing and + cachectic Eyes: EOM intact bilaterally; no conjunctival abnormality ENMT: external ear and nose normal, oropharynx normal Neck: trachea midline, no thyromegaly normal visual inspection Respiratory: no longer using accessory muscles to breath, CTA B/L Cardiovascular: RRR, no murmur, no edema Gastrointestinal (Abdomen): Inspection/Auscultation: abdomen normal to inspection; abdomen not distended Musculoskeletal: no cyanosis or clubbing, extremities motor strength 5/5 Skin: no rashes, warm and dry Neurologic: moves all extremities and awake Speech / Cognition: no longer having aphasia Psychiatric: Orientation: alert, oriented to person and cooperative Discharge Data Allergies Allergy/AdvReac Type Severity Reaction Status Date / Time No Known Drug Allergies Allergy Unknown Verified 06/21/22 15:31 Consultations 06/21/22 15:07 ED Decision to Admit Stat 06/21/22 17:26 Consult Palliative Care Routine 06/21/22 20:38 Consult Environmental Protection Officer Routine Hospital Course (1) Acute exacerbation of idiopathic pulmonary fibrosis: Now needing increased supplemental O2, but really the issue is his significant work of breathing. RR presently 50-60 times per minute. - BiPap ordered - Evaluated by ICU attending; plan for PCU as patient is now DNR/DNI - Steroids, breathing treatments Hospital course: Michel bellaared to be extremely sick when he arrived to the hospital, tachypnic and appeared to require intubation. Patient though was DNR/DNI and was admitted to PCU. Patient however improved with medical management, the next day. Discharge though held given just how sick he was the day prior. However, he continued to do well on 06/23 and discharge was planned. Treatment included: ceftriaxone, doxycycline for pneumonia coverage. COVID treatment included 2 doses of remdesevir and 3 doses of dexamethasone. Patient will continue antibiotics for 4 more days: cefuroxime and doxycycline. Patient continue dexamethasone for 7 more days. Daughter is at bedside and agrees with discharge. Patient also did well with Physical therapy and was cleared to go home. (2) Expressive aphasia: In ER at approx. 3:30pm, daughter reported new onset expressive aphasia. Mostly Wernicke's where patient is trying to answer and answers with nonsensical words. Neuro exam otherwise non-focal. - With INR of 3.3, he could not get get tPA. He is not stable for CT at this point, so will attempt to stabilize from breathing standpoint and discuss imaging with ICU provider. - Re-evaluated at 5:22pm; speech is now mostly returned to normal. On 06/22-06/23, speech remained normal. Likely metabolic encephalopathy secondary to acute respiratory alkalosis (3) COVID-19: First symptoms possible ~06/08 vs. 06/20. Had some transient shortness of breath a few days after ER visit on 06/05 that resolved. Now with increased WOB as above. - Dexamethasone - Remdesivir (4) Hyponatremia: Na was 127 on admission. Likely low solute with SIADH possible. - improved to 130 (5) CAD (coronary artery disease): - Continue statin as able (6) Paroxysmal A-fib: With complete heart block in paced rhythm. - INR 3.3 on presentation - resumed warfarin as patient has artificial heart valve (7) HTN (hypertension): - Hold home meds for now (8) DVT prophylaxis: SCDs, warfarin for afib Total Time Total Time Spent Total Time Spent (In Minutes): 35 Discharge Plan Discharge Items Patient Disposition: Home - Self-Care Reason For Visit: SOB, COUGH Discharge Diagnosis: Pneumonia Activity: Resume your previous activity Non-emergency contact: Primary Care Provider Call non-emergency contact if: you have any medication questions Follow-up/Referrals: Benoit Stauffer MD [Primary Care Provider] - Diet: Heart Healthy Diet Texture: Dental soft (bite-sized) Addtl Attending Provider Instructions: Good morning Mr. Beckman, You were treated with a bacterial pneumonia superimprosed with COVID 19 infection. You were treated with Remdesevir, antibiotics, dexamethasone. In regards to the dexamethasone, you will be on dexamethasone for 7 more days. Please continue your antibiotics tonight. You jabier be on these for 4 more days, 8 more doses. Will recommend cutting back on your metoprolol to 25 mg once a day. Please followup with your PCP in this upcoming week. It was a pleasure taking care of you. Best regards, Taurus Ramesh Pending Studies at Discharge: No Stand-Alone Forms: My [facility], Smoking Cessation Medications and DC Order Prescriptions: New doxycycline hyclate 100 mg Capsule 100 mg PO BID Qty: 8 0RF dexamethasone 6 mg tablet 6 mg PO DAILY Qty: 7 0RF Rx Instructions: Start tomorrow. Hold prednisone until your dexamethasone has been completed. cefuroxime axetil 500 mg tablet 500 mg PO BID Qty: 8 0RF Continued allopurinol 300 mg tablet 300 mg PO DAILY Qty: 90 1RF amoxicillin 500 mg tablet 500 mg PO .COMPLEX Qty: 4 1RF Rx Instructions: 500 mg PO TAKE 4 TABLETS 1 HOUR BEFORE DENTIST APPOINTMENTS; warfarin 3 mg tablet 3 mg PO QPM Qty: 90 1RF Protocol: Dose Management Condition: Saturday (Week One) Dose/Route: 3 mg Instruction: 1 x 3 mg tablet Condition: Saturday Dose/Route: 1.5 mg Instruction: 0.5 x 3 mg tablets Condition: Saturday Dose/Route: 3 mg Instruction: 1 x 3 mg tablet Condition: Saturday Dose/Route: 3 mg Instruction: 1 x 3 mg tablet Condition: Dose/Route: 1.5 mg Instruction: 0.5 x 3 mg tablets Condition: Saturday Dose/Route: 1.5 mg Instruction: 0.5 x 3 mg tablets Condition: Saturday Dose/Route: 1.5 mg Instruction: 0.5 x 3 mg tablets Condition: Saturday (Week Two) Dose/Route: 1.5 mg Instruction: 0.5 x 3 mg tablets Condition: Saturday Dose/Route: 1.5 mg Instruction: 0.5 x 3 mg tablets Condition: Saturday Dose/Route: 3 mg Instruction: 1 x 3 mg tablet Condition: Saturday Dose/Route: 3 mg Instruction: 1 x 3 mg tablet Condition: Dose/Route: 3 mg Instruction: 1 x 3 mg tablet Condition: Saturday Dose/Route: 1.5 mg Instruction: 0.5 x 3 mg tablets Condition: Saturday Dose/Route: 3 mg Instruction: 1 x 3 mg tablet Protocol Text: Adjustment Start Date: 06/14/22 INR Value: 3.5 INR Date: 06/08/22 Recheck Date: 06/22/22 atorvastatin 20 mg tablet 20 mg PO DAILY Qty: 90 3RF (DME) Oxygen Home Liters Per Minute See Rx Instructions .ROUTE .MEDSUPPLY Qty: 4 0RF Rx Instructions: Continuously humidified oxygen at 4 L/min via nc with exertion and at night (DME) Portable Oxygen Misc See Rx Instructions .Route Qty: 1 0RF Rx Instructions: Test for conserving device - 2 L/min via nasal cannula, lifetime need of 99 years Changed metoprolol succinate 50 mg tablet extended release 24 hr 25 mg PO QAM Qty: 90 3RF Discontinued prednisone 10 mg tablet 30 mg PO DAILY 5 Days Qty: 15 0RF Discharge Orders: Discharge Order (Routine); Ordered 06/23/22 Ordered By: Taurus Bangura/Other Patient Handouts: Chronic Lung Disease Infections, Interstitial Lung Disease Admission Data Admit Date/Time: 06/21/22 16:13 Attending Provider: Taurus Ramesh Admit Provider: Mendez Mcpherson Primary Care Provider: Benoit Stauffer Other Providers: Mendez Mcpherson ; Priscila Alegre ; Guanaco Smith Other Interventions: Discharge Summary Assessment (RN) Last Done: 06/23/22 10:26 Coding Level of Care Code D/C DAY MANAGEMENT >30 MINS Diagnoses Acute exacerbation of idiopathic pulmonary fibrosis J84.112 Expressive aphasia R47.01 COVID-19 U07.1 Hyponatremia E87.1 CAD (coronary artery disease) I25.10 Associated angina: without angina Coronary Disease-Associated Artery/Lesion type: [place] artery [place] vs. transplanted heart: [place] heart Paroxysmal A-fib I48.0 HTN (hypertension) I10 DVT prophylaxis Z29.9
[2022-06-23] MEDS ORDERED: WARFARIN SOD 3 MG TAB PO SCH (16:00)
== END 2022-06-23 11:45 | disposition home or self-care (01) | DRG 177 ==
LOC: ED 12:58 → SUATTDRO 16:13 → 2S 16:13

== ENCOUNTER 2022-07-17 14:30 | Inpatient (IN) ==
[2022-07-17] MEDS ORDERED: AZITHROMYCIN 500 MG in DEXTROSE 5% 250 ML IV STA (14:42)
[2022-07-17] MEDS ORDERED: CEFEPIME 2,000 MG/20 ML VIAL IV STA (14:42)
[2022-07-17] MEDS ORDERED: VANCOMYCIN HCL 1,000 MG/270 ML BAG IV STA (14:42)
[2022-07-17] MEDS ORDERED: VANCOMYCIN CONSULT ACTIVE PRN (14:42)
[2022-07-17] MEDS ORDERED: ALBUT/IPRATROP 3MG/0.5MG NEB 3 ML VIAL NEB STA (15:04)
[2022-07-17] MEDS ORDERED: methylPREDNISolone 125 MG/2 ML VIAL IV STA (15:04)
[2022-07-17 15:12] LABS: Basophils # (auto) 0.03 K/uL (0-0.2); Basophils % (auto) 0.5 %; Eosinophils # (auto) 0.14 K/uL (0-0.50); Eosinophils % (auto) 2.5 %; Hematocrit (blood only) 34.6 % (40.1-51.0); Hemoglobin 11.8 g/dl (14.0-18.0); Immature Granulocytes # (auto) 0.05 K/uL (0.00-0.02); Immature Granulocytes % (auto) 0.9 %; Lymphocytes # (auto) 0.88 K/uL (1.2-3.4); Lymphocytes % (auto) 15.6 %; Mean Corpuscular Hemoglobin 33.9 pg (25.0-34.0); Mean Corpuscular Hgb Conc 34.1 g/dL (32.0-36.0); Mean Corpuscular Volume 99.4 fL (80.0-100.0); Mean Platelet Volume 10.3 fL (9.4-12.4); Monocytes # (auto) 0.36 K/uL (0.24-0.82); Monocytes % (auto) 6.4 %; Neutrophils # (auto) 4.19 K/uL (1.4-6.5); Neutrophils % (auto) 74.1 %; Platelet Count 180 K/uL (130-400); RDW Coefficient of Variation 14.8 % (11.5-14.5); RDW Standard Deviation 54.7 fL (36.4-46.3); Red Blood Count 3.48 M/uL (4.63-6.08); White Blood Count 5.65 K/ul (4.8-10.8)
--- NOTE | 2022-07-17 15:23 | XRay Report ---
XR chest 1V portable HISTORY: 86 years-old Male Dyspnea acute shortness of breath COMPARISON: 06/21/2022 TECHNIQUE: AP view of the chest FINDINGS: Cardiac mediastinal and hilar silhouettes are unchanged. Question pulmonary arterial hypertension. Pr ior median sternotomy with cardiac valvular prosthesis and left subclavian pacer. No pneumothorax. Un changed reticular interstitial coarsening. No pneumothorax. Mildly progressed bibasilar densities. Pr obable trace pleural effusions. Bones appear grossly intact. Surgical clips of the upper abdomen. IMPRESSION: 1. Pulmonary fibrosis with trace pleural effusions. 2. Mildly progressed bibasilar opacities suggestive of atelectasis. Pneumonitis could appear similarl y. ACT 112: Negative or not required by law. The above report was generated using voice recognition software. It may contain grammatical, syntax o r spelling errors. Electronically signed by: Rafa Jackson M.D. 07/17/2022 3:22 PM
[2022-07-17 15:42] LABS: Albumin Globulin Ratio 1.2 (0.9-2); Albumin Level 3.6 gm/dl (3.4-5.0); BUN Creatinine Ratio 38.8 (10-20); Calcium 9.5 mg/dl (8.5-10.1); Creatinine Clr Calc Pharmacy 57.5 ml/min; Est GFR (African American) 102.3 ml/min; Est GFR (Non-African American) 88.2 ml/min; Magnesium 1.6 mg/dl (1.7-2.4); Potassium 4.3 mmol/L (3.5-5.1); Total Protein 6.6 gm/dl (6.0-8.3)
[2022-07-17 15:45] LABS: Troponin I High Sensitivity 8.5 pg/ml (0-20)
--- NOTE | 2022-07-17 16:21 | Electrocardiogram Report ---
Test Reason : Blood Pressure : / mmHG Vent. Rate : 075 BPM Atrial Rate : 075 BPM P-R Int : 200 ms QRS Dur : 148 ms QT Int : 466 ms P-R-T Axes : -06 -86 052 degrees QTc Int : 520 ms Poor data quality, interpretation may be adversely affected Atrial-sensed ventricular-paced rhythm Abnormal ECG When compared with ECG of 21-JUN-2022 13:25, Vent. rate has decreased BY 11 BPM Confirmed by José Altman ([id number]) on 07/17/2022 4:21:11 PM Referred By: Confirmed By:Cj Altman
[2022-07-17] MEDS ORDERED: OPTIRAY 300 500mL IV ONE (17:49)
--- NOTE | 2022-07-17 18:01 | CT Scan Report ---
CT angio chest PE protocol CT DOSE: 272.21 mGy.cm HISTORY: 86 years-old Male with hypoxia, pna vs PE. Acute hypoxia with possible pneumonia TECHNIQUE: Multiple CTA images of the chest were obtained after the intravenous administration of 110 ml Optiray. Coronal and sagittal MIPS were obtained from the axial data set and were submitted for review. All measurements were obtained according to NASCET criteria. A dose lowering technique was u tilized adhering to the principles of ALARA. COMPARISON: Chest radiograph of same day, chest CT 03/27/2022, 11/05/2018 FINDINGS: CTA: The heart is upper limits of normal in size. No pericardial effusion. Left subclavian pacer. Aortic v alve replacement. Extensive coronary artery calcifications. Atherosclerosis of the thoracic aorta wit hout aneurysm. Descending thoracic aortic tortuosity. No pulmonary emboli identified. Limited evaluat ion of the segmental and subsegmental branches secondary to respiratory motion artifact. CT CHEST: No thyroid nodule. Chronic mediastinal lymphadenopathy is likely secondary to the patient's chronic i nterstitial lung disease. Subcarinal lymph node measures up to 1.1 cm. Borderline enlarged hilar lymp h nodes measure up to 1.0 cm. There is a considerable amount of pneumomediastinum with trace right sided pneumothorax. Chronic inte rstitial lung disease with subpleural reticulation and bibasilar predominant traction bronchiectasis and left greater than right honeycombing similar to prior. Mildly progressed bibasilar groundglass de nsities. Limited evaluation of the lungs secondary to respiratory motion artifact. There are no new s uspicious pulmonary nodules or masses. Central airways appear patent. Unremarkable appearance of the esophagus. No acute process of the imaged upper abdomen. Surgical clip s within the pauline hepatis. Degenerative changes of the shoulders and spine. IMPRESSION: 1. Study degraded by respiratory motion artifact. No central pulmonary emboli identified. 2. Considerable amount of pneumomediastinum with subcutaneous emphysema tracking into the neck. Addit ionally, there is a trace right-sided pneumothorax. Statistically, bronchoalveolar injury is favored. 3. Chronic interstitial lung disease with mildly progressed bibasilar opacities suggestive of atelect asis/fibrosis. 4. Unchanged mediastinal and hilar lymphadenopathy, likely secondary to the chronic interstitial lung disease. ACT 112: Negative or not required by law. The above report was generated using voice recognition software. It may contain grammatical, syntax o r spelling errors. Electronically signed by: Rafa Jackson M.D. 07/17/2022 5:59 PM
--- NOTE | 2022-07-17 18:25 | History & Physical Report ---
Date of Service July 17, 2022 Assessment & Plan (1) Pneumothorax: Plan: Codeine/guaifenesin 5ml QID Non-rebreather 15LPM O2 continuous Repeat CXR in AM Consult pulmonology - case was discussed with Dr Madison on admission (2) Acute and chronic respiratory failure with hypoxia: Plan: Oxygen as above. Suspect acute worsening due to pneumothorax Will also cover for pneumonia with vancomycin, cefepime, azithromycin per pulmonology note - vancomycin can be d/c'd if MRSA nasal swab negative, will repeat EKG in AM for QTC monitor to decide whether to continue azithromycin of doxycycline Solu-Medrol given for pulmonary fibrosis - will defer additional doses to pulmonology give alternative cause of his acute hypoxia (3) Sarcopenia: Plan: Consult dietary (4) Low BMI: Plan: As above (5) IPF (idiopathic pulmonary fibrosis): Plan: Solu-Medrol as above (6) HTN (hypertension): Plan: Continue metoprolol succinate 25mg PO daily with hold parameters for hypotension and bradycardia (7) Hyperlipidemia: Plan: Continue atorvastatin 20mg PO HS (8) Paroxysmal A-fib: Plan: INR 2.8. Continue warfarin 3mg PO daily. Monitor for increased INR with azithromycin use. (9) S/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: (10) S/P CABG (coronary artery bypass graft): (11) CAD (coronary artery disease): (12) Swallowing dysfunction: Plan: Known severe oropharyngeal dysphagia Aspiration precautions as outlined in last speech and language note Plan VTE Prophylaxis - INR therapeutic Diet - minced and moist heart healthy diet Disposition - admit to PCU Admission and Anticipated Discharge Date Admission Date: July 17, 2022 History of Present Illness Chief Complaint: Shortness of breath Primary Care Provider: Benoit Stauffer MD Andrew Beckman is an 86 year old male with idiopathic pulmonary fibrosis who presents to the ER on advice of his letter of credit document examiner from clinic due to shortness of breath and hypoxia. He was recently admitted here from June 21 - 2021 due to acute exacerbation of idiopathic pulmonary fibrosis with COVID-19. Since that admission he has had slowly worsening shortness of breath and worsening hypoxia. On discharge he was only prescribed oxygen on exertion. He has not been eating or drinking well. No chest pain. Associated dry cough. No nasal congestion, sinus pain, fever or chills. He followed up with his letter of credit document examiner in clinic today and recommended coming to the ER for advanced imaging, antibiotics and steroids. In the ER CT for PE was negative for pulmonary embolism but showed subcutaneous emphysema, pneumomediastinum and trace right pneumothorax. He was referred to medicine for admission and ongoing mangement of this. Allergies Allergy/AdvReac Type Severity Reaction Status Date / Time No Known Allergies Allergy Verified 07/17/22 18:26 Home Medications Medication Instructions Recorded Confirmed Type allopurinol 300 mg tablet 300 mg PO DAILY #90 tabs 02/19/22 07/17/22 Rx warfarin 3 mg tablet 3 mg PO QPM #90 tabs 02/19/22 07/17/22 Rx Oxygen Home #4 L 06/12/22 06/21/22 Rx Portable Oxygen #1 ea 06/12/22 06/21/22 Rx metoprolol succinate 50 mg 25 mg PO QAM #90 tabs 06/23/22 07/17/22 Rx tablet,extended release 24 hr tamsulosin 0.4 mg capsule 0.4 mg PO DAILY #30 caps 07/02/22 07/17/22 Rx amoxicillin 500 mg tablet 2,000 mg PO DIRECTED PRN PRIOR 07/17/22 07/17/22 History TO DENTAL APPT. atorvastatin 20 mg tablet 20 mg PO HS 07/17/22 07/17/22 History Past Med/Surg History Medical History (Updated 07/17/22 @ 23:05 by Johnny Herrera MD) Acute exacerbation of idiopathic pulmonary fibrosis Anemia Anticoagulant long-term use Elevated prostate specific antigen (PSA) Hearing loss High serum ferritin HTN (hypertension) Hyperlipidemia Hypoxemia Hypoxemia Interstitial lung disease IPF (idiopathic pulmonary fibrosis) Low BMI Mediastinal adenopathy Multiple lung nodules on CT Pacemaker Paroxysmal A-fib Paroxysmal ventricular tachycardia Subdural hematoma (01/2019) Surgical History Hx of cholecystectomy Hx of tonsillectomy 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) S/P craniotomy (01/2019) Family History Father Lung cancer Sister Breast cancer Unknown Hypertension Other Anticoagulant long-term use Family history non-contributory Hyperlipidemia Pacemaker Denies family history of Colon cancer Ovarian cancer Prostate cancer Myocardial infarction Social History Smoking Status: Former smoker Tobacco Type: Cigarettes Age Quit Using Tobacco: 41; packs per day: 0.25; Years Smoked: 4; Cigarettes Per Day: 1/4 of a pack; Number of Years Since Quit: 45; Second Hand Exposure: Yes; Hx Alcohol Use: No Hx Substance Use: No Preferred Language: Irish Communication Ability: Effective Visual Impairment: No Limitations Hearing Ability: Normal Die Developer Required: No Beliefs That Will Affect Care: None marital status: Current Living Situation: Alone current occupational status: retired Feels Safe at Home: Yes Safety Concerns: Feels Safe At This Time Childhood Exposure to Second-Hand Smoke: Yes Dental Care, Regularly: Yes Physical Activity Frequency: Does not Exercise Seatbelt Use: always Sunscreen Use: No Assistive Devices: Cane and Hearing Aid - Bilateral Review of Systems Review of Systems: All systems reviewed & are unremarkable except as noted in HPI & below Physical Exam Constitutional: well developed, + cachectic and + frail appearing; + not well nourished and no acute distress Eyes: + anicteric sclerae; normal pupil size ENMT: external ear and nose normal, oropharynx normal Neck: trachea midline, no thyromegaly Respiratory: + respiratory distress, + labored breathing, + retractions and + uses accessory muscles; + abnormal respiratory effort and expiratory phase not prolonged Auscultation: + crackles (fine bilateral throughout); no diminished lung sounds, no rales, no rhonchi and no wheezes Cardiovascular: RRR, no murmur, no edema Gastrointestinal (Abdomen): normal bowel sounds, soft, nontender, no hepatosplenomegaly Musculoskeletal: no cyanosis or clubbing, extremities motor strength 5/5 Skin: no rashes, warm and dry Neurologic: moves all extremities and awake; not confused Psychiatric: A+Ox3, euthymic affect Genitourinary: no CVA tenderness Results & Data Results & Data ([facility]) Vital Signs (Past 12 Hours) Vital Signs Temp Pulse Resp BP Pulse Ox O2 Del Method O2 Flow Rate 07/17/22 17:53 92 H 18 07/17/22 17:20 77 26 H 99 07/17/22 17:10 74 18 100 07/17/22 17:00 75 17 100 07/17/22 17:00 99/61 L 07/17/22 16:50 76 6 L 100 07/17/22 16:40 75 17 100 07/17/22 16:30 81 27 H 100 07/17/22 16:30 99/55 L 07/17/22 16:20 77 24 100 07/17/22 16:10 75 36 H 100 07/17/22 16:00 76 33 H 100 07/17/22 16:00 108/64 07/17/22 15:50 72 37 H 100 07/17/22 15:40 76 22 100 07/17/22 15:30 86 28 H 100 07/17/22 15:20 85 31 H 100 07/17/22 15:10 65 24 100 07/17/22 15:09 76 30 H 100 07/17/22 15:05 36.2 C L 83 18 135/71 97 Nasal Cannula 3 07/17/22 14:55 Nasal Cannula 2 Laboratory Results Abnormal lab results 07/17/22 07/17/22 07/17/22 Range/Units 14:48 14:48 18:03 RBC 3.48 L (4.63-6.08) M/uL Hgb 11.8 L (14.0-18.0) g/dl Hct 34.6 L (40.1-51.0) % RDW Std Deviation 54.7 H (36.4-46.3) fL RDW Coeff of Jill 14.8 H (11.5-14.5) % Lymph # (Auto) 0.88 L (1.2-3.4) K/uL Immature Gran # (Auto) 0.05 H (0.00-0.02) K/uL PT (9.0-12.0) Seconds INR (0.9-1.1) Sodium 134 L (136-145) mmol/L BUN 26 H (6-23) mg/dl BUN/Creatinine Ratio 38.8 H (10-20) Glucose 266 H (70-99(Fasting)) mg/dl POC Glucose (70-99) mg/dl Magnesium 1.6 L (1.7-2.4) mg/dl Ur Specific [place] (1.000-1.030) SARS-CoV-2 (PCR) DETECTED A* (NotDetected) 1007/17/22 07/17/22 Range/Units 20:11 20:15 20:19 RBC (4.63-6.08) M/uL Hgb (14.0-18.0) g/dl Hct (40.1-51.0) % RDW Std Deviation (36.4-46.3) fL RDW Coeff of Jill (11.5-14.5) % Lymph # (Auto) (1.2-3.4) K/uL Immature Gran # (Auto) (0.00-0.02) K/uL PT 27.6 H (9.0-12.0) Seconds INR 2.7 H (0.9-1.1) Sodium (136-145) mmol/L BUN (6-23) mg/dl BUN/Creatinine Ratio (10-20) Glucose (70-99(Fasting)) mg/dl POC Glucose 164 H (70-99) mg/dl Magnesium (1.7-2.4) mg/dl Ur Specific [place] > 1.045 H (1.000-1.030) SARS-CoV-2 (PCR) (NotDetected) Diagnostic Findings XR chest 1V portable HISTORY: 86 years-old Male Dyspnea acute shortness of breath COMPARISON: 06/21/2022 TECHNIQUE: AP view of the chest FINDINGS: Cardiac mediastinal and hilar silhouettes are unchanged. Question pulmonary arterial hypertension. Prior median sternotomy with cardiac valvular prosthesis and left subclavian pacer. No pneumothorax. Unchanged reticular interstitial coarsening. No pneumothorax. Mildly progressed bibasilar densities. Probable trace pleural effusions. Bones appear grossly intact. Surgical clips of the upper abdomen. IMPRESSION: 1. Pulmonary fibrosis with trace pleural effusions. 2. Mildly progressed bibasilar opacities suggestive of atelectasis. Pneumonitis could appear similarly. CT angio chest PE protocol CT DOSE: 272.21 mGy.cm HISTORY: 86 years-old Male with hypoxia, pna vs PE. Acute hypoxia with possible pneumonia TECHNIQUE: Multiple CTA images of the chest were obtained after the intravenous administration of 110 ml Optiray. Coronal and sagittal MIPS were obtained from the axial data set and were submitted for review. All measurements were obtained according to NASCET criteria. A dose lowering technique was utilized adhering to the principles of ALARA. COMPARISON: Chest radiograph of same day, chest CT 03/27/2022, 11/05/2018 FINDINGS: CTA: The heart is upper limits of normal in size. No pericardial effusion. Left subclavian pacer. Aortic valve replacement. Extensive coronary artery calcifications. Atherosclerosis of the thoracic aorta without aneurysm. Descending thoracic aortic tortuosity. No pulmonary emboli identified. Limited evaluation of the segmental and subsegmental branches secondary to respiratory motion artifact. CT CHEST: No thyroid nodule. Chronic mediastinal lymphadenopathy is likely secondary to the patient's chronic interstitial lung disease. Subcarinal lymph node measures up to 1.1 cm. Borderline enlarged hilar lymph nodes measure up to 1.0 cm. There is a considerable amount of pneumomediastinum with trace right sided pneumothorax. Chronic interstitial lung disease with subpleural reticulation and bibasilar predominant traction bronchiectasis and left greater than right honeycombing similar to prior. Mildly progressed bibasilar groundglass densities. Limited evaluation of the lungs secondary to respiratory motion artifact. There are no new suspicious pulmonary nodules or masses. Central airways appear patent. Unremarkable appearance of the esophagus. No acute process of the imaged upper abdomen. Surgical clips within the pauline hepatis. Degenerative changes of the shoulders and spine. IMPRESSION: 1. Study degraded by respiratory motion artifact. No central pulmonary emboli identified. 2. Considerable amount of pneumomediastinum with subcutaneous emphysema tracking into the neck. Additionally, there is a trace right-sided pneumothorax. Statistically, bronchoalveolar injury is favored. 3. Chronic interstitial lung disease with mildly progressed bibasilar opacities suggestive of atelectasis/fibrosis. 4. Unchanged mediastinal and hilar lymphadenopathy, likely secondary to the chronic interstitial lung disease. Medications Administered ER Medications Given: Solu-medrol 125mg IV Azithromycin 500mg IV Cefepime 2g IV Vancomycin 1000mg IV Code Status & VTE Plan VTE Prophylaxis Plan VTE Prophylaxis will be ordered: Yes PG Care Time/CCT Total # of Minutes Spent Total Time Spent with Patient: Total time spent is greater than 50% in coordination of care (as documented) at patient's floor/unit and/or counseling patient: Coding Level of Care Code 42926 Initial Inpt Care Lvl 3 Diagnoses Pneumothorax J93.9 Acute and chronic respiratory failure with hypoxia J96.21 Sarcopenia M62.84 Low BMI IPF (idiopathic pulmonary fibrosis) J84.112 HTN (hypertension) I10 Hyperlipidemia E78.5 Paroxysmal A-fib I48.0 S/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 Z95.4 S/P CABG (coronary artery bypass graft) Z95.1 CAD (coronary artery disease) I25.10 Associated angina: without angina Coronary Disease-Associated Artery/Lesion type: [place] artery [place] vs. transplanted heart: de[place] heart Swallowing dysfunction R13.10 (1) CAD (coronary artery disease) Associated angina: without angina Coronary Disease-Associated Artery/Lesion type: [place] artery [place] vs. transplanted heart: [place] heart Qualified Code(s): I25.10 - Atherosclerotic heart disease of [place] coronary artery without angina pectoris
[2022-07-17] MEDS ORDERED: guaiFENesin/CODEINE 100MG/10MG 5ML UDC PO STA (18:28)
[2022-07-17 19:43] LABS: Adenovirus PCR Not Detected (NotDetected); Bordetella parapertussis PCR Not Detected (NotDetected); Bordetella pertussis PCR Not Detected (NotDetected); Chlamydia pneumoniae PCR Not Detected (NotDetected); Coronavirus 229E PCR Not Detected (NotDetected); Coronavirus HKU1 PCR Not Detected (NotDetected); Coronavirus NL63 PCR Not Detected (NotDetected); Coronavirus OC43PCR Not Detected (NotDetected); Human Metapneumovirus PCR Not Detected (NotDetected); Influenza A PCR Not Detected (NotDetected); Influenza B PCR Not Detected (NotDetected); Mycoplasma pneumoniae PCR Not Detected (NotDetected); Parainfluenza Virus 1 PCR Not Detected (NotDetected); Parainfluenza Virus 2 PCR Not Detected (NotDetected); Parainfluenza Virus 3 PCR Not Detected (NotDetected); Parainfluenza Virus 4 PCR Not Detected (NotDetected); Respiratory Syncytial VirusPCR Not Detected (NotDetected); Rhinovirus/Enterovirus PCR Not Detected (NotDetected)
[2022-07-17 20:08] LABS: Coronavirus CoV-2 (COVID19)PCR DETECTED (NotDetected)
[2022-07-17] MEDS ORDERED: INFLUENZA VACCINE HIGH DOSE PF 65+ 0.7 ML SYR IM ONE (20:20)
[2022-07-17 20:27] LABS: Appearance Urine Clear (Clear); Bilirubin Urine Negative (Negative); Blood Urine Negative (Negative); Color Urine Yellow; Glucose Urine UA Negative (Negative); Ketones Urine Negative (Negative); Leukocyte Esterase Urine Negative (Negative); Nitrite Urine Negative (Negative); Protein Urine Negative (Negative); Specific Gravity Urine > 1.045 (1.000-1.030); Urobilinogen Urine Negative (Negative); pH Urine 6.5 (4.5-7.5)
[2022-07-17 20:36] LABS: INR 2.7 (0.9-1.1); Prothrombin Time 27.6 Seconds (9.0-12.0)
[2022-07-17] MEDS: ATORVASTATIN 20 MG TAB PO SCH (21:00)
[2022-07-17] MEDS: guaiFENesin/CODEINE 100MG/10MG 5ML UDC PO SCH (21:02)
[2022-07-17] MEDS: WARFARIN SOD 3 MG TAB PO SCH (21:18)
--- NOTE | 2022-07-17 23:06 | Emergency Department Note ---
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 He was found to be hypoxic at his telecom manager office and he was very concerned about his respiratory status. I did discuss his case with his telecom manager, Dr.Dr. Marrero. He recommended the patient to be admitted, have nebs, steroid, cultures, and antibiotic treatment with vancomycin, cefepime, and azithromycin. He also recommended chest CT imaging. Patient was evaluated. The blood work, medications noted above, and imaging ordered. Overall the patient was feeling better than he was earlier this morning and his vital signs were stable on nasal cannula oxygen. The patient was found to have concerning findings for pneumonitis on chest x- ray. Chest CT was performed. No obvious pulmonary emboli were noted. There was some respiratory motion. The pneumonitis findings and fibrosis findings noted. Patient was also found to have pneumomediastinum and questionable trace pneumothorax. Pulmonary was aware and I did consult with Dr. Cool of internal medicine. Nonrebreather was recommended due to the CT findings. No chest tube required. Patient was evaluated by medicine and admitted for further management. Triage Nursing notes reviewed and agree them. Vital Signs: reviewed and remarkable for hypoxia noted prehospital Differential diagnosis: Reactive airway disease, pneumonia, pneumothorax, COPD, CHF, infections, cardiac ischemia, pulmonary embolism, musculoskeletal, gastrointestinal, as well as other pathologies. Diagnostics interpreted by me: ECG: Twelve-lead ECG reveals an atrial sensed ventricular paced rhythm at [address] elevation. Cardiac Monitoring: Cardiac monitoring ordered by me: The patient was placed on continuous cardiac monitoring and observed. It revealed a normal sinus rhythm at 71 beats per minute without ectopy or evidence of dysrhythmia. Imaging studies: Chest x-ray and CT scan as noted below HPI: The patient is a 86 year old male who presents to the Emergency Room with complaints of shortness of breath. This started over the last day or so and is noted to have worsened today. The patient also notes the following associated s ymptoms, fatigue, poor appetite. The patient has used his oxygen for relieving factors. Current pain is rated as 0/10. Patient went to his telecom manager office and his O2 saturations were 84%. He was very tachypneic. Given his history of pulmonary fibrosis and COVID the pulmonology office recommended ER transfer. Pt denies LOC, headache, fevers, chills, diaphoresis, visual changes, neck pain, chest pain, nausea, vomiting, abdominal pain, back pain, melena, hematochezia, urinary symptoms, numbness, weakness, lymphadenopathy, rash, or other complaints. ROS: See above HPI for pertinent positives & negatives. A total of 10 systems reviewed and were otherwise negative. PAST MEDICAL HISTORY:Pulmonary fibrosis,, see below PAST SURGICAL HISTORY:See Below, FAMILY HISTORY:See Below SOCIAL HISTORY:See Below, retired HOME MEDICATIONS:See Below ALLERGIES:See Below VITALS:See Below PHYSICAL EXAMINATION: GENERAL: Awake, alert, mildly dyspneic-appearing, in no distress HENT: Normocephalic, atraumatic. Oropharynx unremarkable. EYES: Normal conjunctiva. Sclera non-icteric. NECK: Inspection normal. Non-tender. Supple. No nuchal rigidity. FROM. No masses. RESPIRATORY: Decreased air movement throughout. No wheezes. Scattered basilar rales. Mildly increased respiratory effort. CARDIAC: Normal rate. Normal rhythm. No murmurs. No rubs. Extremities warm and well perfused. Pulses equal. No JVD. GI: Soft, non-distended. No tenderness to palpation. No rebound or guarding. No masses. RECTAL: Deferred. MUSCULOSKELETAL: Atraumatic. Chest examination reveals no tenderness. The back is symmetrical on inspection without obvious abnormality. There is no CVA tenderness to palpation. No joint edema. LOWER EXTREMITIES: Calves are equal size bilaterally and non-tender. No edema. No discoloration. NEURO: Normal sensorium. No sensory or motor deficits noted. SKIN: No rash or jaundice noted. CRITICAL CARE: I have personally spent greater than 30 minutes of critical care time in the direct management of this patient. This includes bedside care, interpretation of diagnostic studies, and testing, discussion with consultants, patient, and other required patient management activities. These minutes are in excess of all separately billable procedures. Johnny Herrera MD Past Med/Surg History Medical History (Updated 10/04/22 @ 23:05 by Johnny Herrera MD) Acute exacerbation of idiopathic pulmonary fibrosis Anemia Anticoagulant long-term use Elevated prostate specific antigen (PSA) Hearing loss High serum ferritin HTN (hypertension) Hyperlipidemia Hypoxemia Hypoxemia Interstitial lung disease IPF (idiopathic pulmonary fibrosis) Low BMI Mediastinal adenopathy Multiple lung nodules on CT Pacemaker Paroxysmal A-fib Paroxysmal ventricular tachycardia Subdural hematoma (01/2019) Surgical History Hx of cholecystectomy Hx of tonsillectomy 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) S/P craniotomy (01/2019) Family History Father Lung cancer Sister Breast cancer Unknown Hypertension Other Anticoagulant long-term use Family history non-contributory Hyperlipidemia Pacemaker Denies family history of Colon cancer Ovarian cancer Prostate cancer Myocardial infarction Social History Smoking Status: Former smoker Tobacco Type: Cigarettes Age Quit Using Tobacco: 41; packs per day: 0.25; Years Smoked: 4; Cigarettes Per Day: 1/4 of a pack; Number of Years Since Quit: 45; Second Hand Exposure: Yes; Hx Alcohol Use: No Hx Substance Use: No Preferred Language: Swazi Communication Ability: Effective Visual Impairment: No Limitations Hearing Ability: Normal Cargo Checker Required: No Beliefs That Will Affect Care: None marital status: Current Living Situation: Alone current occupational status: retired Feels Safe at Home: Yes Safety Concerns: Feels Safe At This Time Childhood Exposure to Second-Hand Smoke: Yes Dental Care, Regularly: Yes Physical Activity Frequency: Does not Exercise Seatbelt Use: always Sunscreen Use: No Assistive Devices: Cane and Hearing Aid - Bilateral Allergies Allergies Allergy/AdvReac Type Severity Reaction Status Date / Time No Known Allergies Allergy Verified 07/17/22 18:26 Home Meds Home Medications Medication Instructions Recorded Confirmed amoxicillin 500 mg tablet 2,000 mg PO DIRECTED PRN PRIOR 07/17/22 07/17/22 TO DENTAL APPT. atorvastatin 20 mg tablet 20 mg PO HS 07/17/22 07/17/22 Previous Rx's Medication Instructions Recorded allopurinol 300 mg tablet 300 mg PO DAILY #90 tabs 02/19/22 warfarin 3 mg tablet 3 mg PO QPM #90 tabs 02/19/22 Oxygen Home #4 L 06/12/22 Portable Oxygen #1 ea 06/12/22 metoprolol succinate 50 mg 25 mg PO QAM #90 tabs 06/23/22 tablet,extended release 24 hr tamsulosin 0.4 mg capsule 0.4 mg PO DAILY #30 caps 07/02/22 Results & Data (ED) Vital Signs Vital Signs - 24 hr 07/17/22 14:55 07/17/22 15:05 07/17/22 15:09 Temperature 36.2 C L Temperature Source Oral Pulse Rate 83 76 Pulse Rate from SpO2 Sensor 77 Pulse Rhythm Regular Pulse Strength Normal Respiratory Rate 18 30 H Respiratory Effort / Characteristics Non-Labored Spontaneous Non-Labored Spontaneous Respiratory Depth Normal Normal Respiratory Pattern Regular Regular Blood Pressure 135/71 Blood Pressure Mean 92 Blood Pressure Position Lying Pulse Oximetry 97 100 Oxygen Delivery Method Nasal Cannula Nasal Cannula Oxygen Flow Rate 2 3 Sepsis Recent Fever Within 48 Hours No Sepsis New/Unexplained Change in Mental Status N/A Sepsis Action Taken by Nursing No Action Required 07/17/22 15:10 07/17/22 15:20 07/17/22 15:30 Temperature Temperature Source Pulse Rate 65 85 86 Pulse Rate from SpO2 Sensor 76 85 85 Pulse Rhythm Pulse Strength Respiratory Rate 24 31 H 28 H Respiratory Effort / Characteristics Respiratory Depth Respiratory Pattern Blood Pressure Blood Pressure Mean Blood Pressure Position Pulse Oximetry 100 100 100 Oxygen Delivery Method Oxygen Flow Rate Sepsis Recent Fever Within 48 Hours Sepsis New/Unexplained Change in Mental Status Sepsis Action Taken by Nursing 07/17/22 15:40 07/17/22 15:50 07/17/22 16:00 Temperature Temperature Source Pulse Rate 76 72 Pulse Rate from SpO2 Sensor 77 73 Pulse Rhythm Pulse Strength Respiratory Rate 22 37 H Respiratory Effort / Characteristics Respiratory Depth Respiratory Pattern Blood Pressure 108/64 Blood Pressure Mean 78 Blood Pressure Position Pulse Oximetry 100 100 Oxygen Delivery Method Oxygen Flow Rate Sepsis Recent Fever Within 48 Hours Sepsis New/Unexplained Change in Mental Status Sepsis Action Taken by Nursing 07/17/22 16:00 07/17/22 16:10 07/17/22 16:20 Temperature Temperature Source Pulse Rate 76 75 77 Pulse Rate from SpO2 Sensor 75 69 77 Pulse Rhythm Pulse Strength Respiratory Rate 33 H 36 H 24 Respiratory Effort / Characteristics Respiratory Depth Respiratory Pattern Blood Pressure Blood Pressure Mean Blood Pressure Position Pulse Oximetry 100 100 100 Oxygen Delivery Method Oxygen Flow Rate Sepsis Recent Fever Within 48 Hours Sepsis New/Unexplained Change in Mental Status Sepsis Action Taken by Nursing 07/17/22 16:30 07/17/22 16:30 07/17/22 16:40 Temperature Temperature Source Pulse Rate 81 75 Pulse Rate from SpO2 Sensor 81 75 Pulse Rhythm Pulse Strength Respiratory Rate 27 H 17 Respiratory Effort / Characteristics Respiratory Depth Respiratory Pattern Blood Pressure 99/55 L Blood Pressure Mean 69 Blood Pressure Position Pulse Oximetry 100 100 Oxygen Delivery Method Oxygen Flow Rate Sepsis Recent Fever Within 48 Hours Sepsis New/Unexplained Change in Mental Status Sepsis Action Taken by Nursing 07/17/22 16:50 07/17/22 17:00 07/17/22 17:00 Temperature Temperature Source Pulse Rate 76 75 Pulse Rate from SpO2 Sensor 68 75 Pulse Rhythm Pulse Strength Respiratory Rate 6 L 17 Respiratory Effort / Characteristics Respiratory Depth Respiratory Pattern Blood Pressure 99/61 L Blood Pressure Mean 73 Blood Pressure Position Pulse Oximetry 100 100 Oxygen Delivery Method Oxygen Flow Rate Sepsis Recent Fever Within 48 Hours Sepsis New/Unexplained Change in Mental Status Sepsis Action Taken by Nursing 07/17/22 17:10 07/17/22 17:20 07/17/22 17:53 Temperature Temperature Source Pulse Rate 74 77 92 H Pulse Rate from SpO2 Sensor 71 78 Pulse Rhythm Pulse Strength Respiratory Rate 18 26 H 18 Respiratory Effort / Characteristics Respiratory Depth Respiratory Pattern Blood Pressure Blood Pressure Mean Blood Pressure Position Pulse Oximetry 100 99 Oxygen Delivery Method Oxygen Flow Rate Sepsis Recent Fever Within 48 Hours Sepsis New/Unexplained Change in Mental Status Sepsis Action Taken by Nursing Laboratory Data Result diagrams: 07/17/22 14:48 07/17/22 14:48 Lab Results 07/17/22 07/17/22 07/17/22 Range/Units 14:48 14:48 14:48 WBC 5.65 (4.8-10.8) K/ul RBC 3.48 L (4.63-6.08) M/uL Hgb 11.8 L (14.0-18.0) g/dl Hct 34.6 L (40.1-51.0) % MCV 99.4 (80.0-100.0) fL MCH 33.9 (25.0-34.0) pg MCHC 34.1 (32.0-36.0) g/dL RDW Std Deviation 54.7 H (36.4-46.3) fL RDW Coeff of Jill 14.8 H (11.5-14.5) % Plt Count 180 (130-400) K/uL MPV 10.3 (9.4-12.4) fL Immature Gran % (Auto) 0.9 % Neut % (Auto) 74.1 % Lymph % (Auto) 15.6 % Sabine % (Auto) 6.4 % Eos % (Auto) 2.5 % Baso % (Auto) 0.5 % Neut # (Auto) 4.19 (1.4-6.5) K/uL Lymph # (Auto) 0.88 L (1.2-3.4) K/uL Sabine # (Auto) 0.36 (0.24-0.82) K/uL Eos # (Auto) 0.14 (0-0.50) K/uL Baso # (Auto) 0.03 (0-0.2) K/uL Immature Gran # (Auto) 0.05 H (0.00-0.02) K/uL Sodium 134 L (136-145) mmol/L Potassium 4.3 (3.5-5.1) mmol/L Chloride 98 (98-107) mmol/L Carbon Dioxide 31 (21-32) mmol/L Anion Gap 5 (3-11) BUN 26 H (6-23) mg/dl Creatinine 0.67 (0.6-1.4) mg/dl Est Cr Clr Drug Dosing 57.5 ml/min Est GFR ( Amer) 102.3 ml/min Est GFR (Non-Af Amer) 88.2 ml/min BUN/Creatinine Ratio 38.8 H (10-20) Glucose 266 H (70-99(Fasting)) mg/dl Calcium 9.5 (8.5-10.1) mg/dl Phosphorus 2.5 (2.5-4.9) mg/dl Magnesium 1.6 L (1.7-2.4) mg/dl Total Bilirubin 1.0 (0.2-1.0) mg/dl AST 24 (13-39) U/L ALT 10 (7-52) U/L Alkaline Phosphatase 90 (34-104) U/L Troponin I High Sens 8.5 D (0-20) pg/ml Total Protein 6.6 (6.0-8.3) gm/dl Albumin 3.6 (3.4-5.0) gm/dl Globulin 3.0 (2.5-4.0) gm/dl Albumin/Globulin Ratio 1.2 (0.9-2) Procalcitonin (0-0.5) ng/ml Nasal Screen MRSA (PCR) (Negative) Adenovirus (PCR) (NotDetected) B. pertussis DNA (PCR) (NotDetected) B.parapertussis DNA PCR (NotDetected) C. pneumoniae DNA (PCR) (NotDetected) Coronavirus OC43 (PCR) (NotDetected) Coronavirus HKU1 (PCR) (NotDetected) Coronavirus 229E (PCR) (NotDetected) SARS-CoV-2 (PCR) (NotDetected) Coronavirus NL63 (PCR) (NotDetected) Human Metapneumovir PCR (NotDetected) Influenza Type A (PCR) (NotDetected) Influenza Type B (PCR) (NotDetected) M. pneumoniae (PCR) (NotDetected) Parainfluenza 1 (PCR) (NotDetected) Parainfluenza 2 (PCR) (NotDetected) Parainfluenza 3 (PCR) (NotDetected) Parainfluenza 4 (PCR) (NotDetected) RSV (PCR) (NotDetected) Entero/Rhino (PCR) (NotDetected) SARS-CoV-2, RNA, NAAT (NEGATIVE) 07/17/22 07/17/22 07/17/22 Range/Units 14:48 14:55 18:03 WBC (4.8-10.8) K/ul RBC (4.63-6.08) M/uL Hgb (14.0-18.0) g/dl Hct (40.1-51.0) % MCV (80.0-100.0) fL MCH (25.0-34.0) pg MCHC (32.0-36.0) g/dL RDW Std Deviation (36.4-46.3) fL RDW Coeff of Jill (11.5-14.5) % Plt Count (130-400) K/uL MPV (9.4-12.4) fL Immature Gran % (Auto) % Neut % (Auto) % Lymph % (Auto) % Sabine % (Auto) % Eos % (Auto) % Baso % (Auto) % Neut # (Auto) (1.4-6.5) K/uL Lymph # (Auto) (1.2-3.4) K/uL Sabine # (Auto) (0.24-0.82) K/uL Eos # (Auto) (0-0.50) K/uL Baso # (Auto) (0-0.2) K/uL Immature Gran # (Auto) (0.00-0.02) K/uL Sodium (136-145) mmol/L Potassium (3.5-5.1) mmol/L Chloride (98-107) mmol/L Carbon Dioxide (21-32) mmol/L Anion Gap (3-11) BUN (6-23) mg/dl Creatinine (0.6-1.4) mg/dl Est Cr Clr Drug Dosing ml/min Est GFR ( Amer) ml/min Est GFR (Non-Af Amer) ml/min BUN/Creatinine Ratio (10-20) Glucose (70-99(Fasting)) mg/dl Calcium (8.5-10.1) mg/dl Phosphorus (2.5-4.9) mg/dl Magnesium (1.7-2.4) mg/dl Total Bilirubin (0.2-1.0) mg/dl AST (13-39) U/L ALT (7-52) U/L Alkaline Phosphatase (34-104) U/L Troponin I High Sens (0-20) pg/ml Total Protein (6.0-8.3) gm/dl Albumin (3.4-5.0) gm/dl Globulin (2.5-4.0) gm/dl Albumin/Globulin Ratio (0.9-2) Procalcitonin < 0.05 (0-0.5) ng/ml Nasal Screen MRSA (PCR) Negative (Negative) Adenovirus (PCR) (NotDetected) B. pertussis DNA (PCR) (NotDetected) B.parapertussis DNA PCR (NotDetected) C. pneumoniae DNA (PCR) (NotDetected) Coronavirus OC43 (PCR) (NotDetected) Coronavirus HKU1 (PCR) (NotDetected) Coronavirus 229E (PCR) (NotDetected) SARS-CoV-2 (PCR) (NotDetected) Coronavirus NL63 (PCR) (NotDetected) Human Metapneumovir PCR (NotDetected) Influenza Type A (PCR) (NotDetected) Influenza Type B (PCR) (NotDetected) M. pneumoniae (PCR) (NotDetected) Parainfluenza 1 (PCR) (NotDetected) Parainfluenza 2 (PCR) (NotDetected) Parainfluenza 3 (PCR) (NotDetected) Parainfluenza 4 (PCR) (NotDetected) RSV (PCR) (NotDetected) Entero/Rhino (PCR) (NotDetected) SARS-CoV-2, RNA, NAAT NEGATIVE (NEGATIVE) 07/17/22 Range/Units 18:03 WBC (4.8-10.8) K/ul RBC (4.63-6.08) M/uL Hgb (14.0-18.0) g/dl Hct (40.1-51.0) % MCV (80.0-100.0) fL MCH (25.0-34.0) pg MCHC (32.0-36.0) g/dL RDW Std Deviation (36.4-46.3) fL RDW Coeff of Jill (11.5-14.5) % Plt Count (130-400) K/uL MPV (9.4-12.4) fL Immature Gran % (Auto) % Neut % (Auto) % Lymph % (Auto) % Sabine % (Auto) % Eos % (Auto) % Baso % (Auto) % Neut # (Auto) (1.4-6.5) K/uL Lymph # (Auto) (1.2-3.4) K/uL Sabine # (Auto) (0.24-0.82) K/uL Eos # (Auto) (0-0.50) K/uL Baso # (Auto) (0-0.2) K/uL Immature Gran # (Auto) (0.00-0.02) K/uL Sodium (136-145) mmol/L Potassium (3.5-5.1) mmol/L Chloride (98-107) mmol/L Carbon Dioxide (21-32) mmol/L Anion Gap (3-11) BUN (6-23) mg/dl Creatinine (0.6-1.4) mg/dl Est Cr Clr Drug Dosing ml/min Est GFR ( Amer) ml/min Est GFR (Non-Af Amer) ml/min BUN/Creatinine Ratio (10-20) Glucose (70-99(Fasting)) mg/dl Calcium (8.5-10.1) mg/dl Phosphorus (2.5-4.9) mg/dl Magnesium (1.7-2.4) mg/dl Total Bilirubin (0.2-1.0) mg/dl AST (13-39) U/L ALT (7-52) U/L Alkaline Phosphatase (34-104) U/L Troponin I High Sens (0-20) pg/ml Total Protein (6.0-8.3) gm/dl Albumin (3.4-5.0) gm/dl Globulin (2.5-4.0) gm/dl Albumin/Globulin Ratio (0.9-2) Procalcitonin (0-0.5) ng/ml Nasal Screen MRSA (PCR) (Negative) Adenovirus (PCR) Not Detected (NotDetected) B. pertussis DNA (PCR) Not Detected (NotDetected) B.parapertussis DNA PCR Not Detected (NotDetected) C. pneumoniae DNA (PCR) Not Detected (NotDetected) Coronavirus OC43 (PCR) Not Detected (NotDetected) Coronavirus HKU1 (PCR) Not Detected (NotDetected) Coronavirus 229E (PCR) Not Detected (NotDetected) SARS-CoV-2 (PCR) DETECTED A* (NotDetected) Coronavirus NL63 (PCR) Not Detected (NotDetected) Human Metapneumovir PCR Not Detected (NotDetected) Influenza Type A (PCR) Not Detected (NotDetected) Influenza Type B (PCR) Not Detected (NotDetected) M. pneumoniae (PCR) Not Detected (NotDetected) Parainfluenza 1 (PCR) Not Detected (NotDetected) Parainfluenza 2 (PCR) Not Detected (NotDetected) Parainfluenza 3 (PCR) Not Detected (NotDetected) Parainfluenza 4 (PCR) Not Detected (NotDetected) RSV (PCR) Not Detected (NotDetected) Entero/Rhino (PCR) Not Detected (NotDetected) SARS-CoV-2, RNA, NAAT (NEGATIVE) Administered Medications Atorvastatin Calcium (Atorvastatin 20 Mg Tab) 20 mg PO HS TESHA Stop: 08/16/22 20:59 Last Admin: 07/17/22 21:00 Dose: 20 mg Documented By: KEVIN Guaifenesin/Codeine Phosphate (Guaifenesin/Codeine 100mg/10mg 5ml Udc) 5 ml PO QID TESHA Stop: 08/16/22 20:59 Last Admin: 07/17/22 21:02 Dose: 5 ml Documented By: KEVIN Warfarin Sodium (Warfarin Sod 3 Mg Tab) 3 mg PO QPM TESHA Stop: 08/16/22 20:59 Last Admin: 07/17/22 21:18 Dose: 3 mg Documented By: KEVIN Discontinued Medications Albuterol (Albut/Ipratrop 3mg/0.5mg Neb 3 Ml Vial) 3 ml NEB NOW STA; Protocol Stop: 07/17/22 15:05 Last Admin: 07/17/22 15:14 Dose: 3 ml Documented By: [id number] Guaifenesin/Codeine Phosphate (Guaifenesin/Codeine 100mg/10mg 5ml Udc) 5 ml PO NOW STA Stop: 07/17/22 18:29 Last Admin: 07/17/22 18:52 Dose: 5 ml Documented By: [id number] Cefepime HCl (Maxipime) 2,000 mg in 20 mls @ 5 mls/min IV NOW STA; Protocol Stop: 07/17/22 14:45 Last Admin: 07/17/22 15:11 Dose: 5 mls/min Documented By: [id number] Vancomycin HCl (Vancomycin Hcl) 1,000 mg in 270 mls @ 125 mls/hr IV NOW STA Stop: 07/17/22 16:51 Last Infusion: 07/17/22 17:42 Dose: 0 mls/hr Documented By: [id number] Admin: 07/17/22 15:12 Dose: 125 mls/hr Documented By: [id number] Azithromycin 500 mg/ Dextrose 255 mls @ 127.5 mls/hr IV NOW STA Stop: 07/17/22 16:41 Last Infusion: 07/17/22 17:42 Dose: 0 mls/hr Documented By: [id number] Admin: 07/17/22 15:11 Dose: 127.5 mls/hr Documented By: [id number] Ioversol (Optiray 300 500ml) 110 ml IV ONCE ONE Stop: 07/17/22 17:50 Last Admin: 07/17/22 17:49 Dose: 110 ml Documented By: DG Methylprednisolone (Methylprednisolone 125 Mg/2 Ml Vial) 125 mg IV NOW STA Stop: 07/17/22 15:05 Last Admin: 07/17/22 15:11 Dose: 125 mg Documented By: [id number] Imaging Data Radiologist's Impression: Chest X-Ray 07/17/22 14:42 XR chest 1V portable HISTORY: 86 years-old Male Dyspnea acute shortness of breath COMPARISON: 06/21/2022 TECHNIQUE: AP view of the chest FINDINGS: Cardiac mediastinal and hilar silhouettes are unchanged. Question pulmonary arterial hypertension. Prior median sternotomy with cardiac valvular prosthesis and left subclavian pacer. No pneumothorax. Unchanged reticular interstitial coarsening. No pneumothorax. Mildly progressed bibasilar densities. Probable trace pleural effusions. Bones appear grossly intact. Surgical clips of the upper abdomen. IMPRESSION: 1. Pulmonary fibrosis with trace pleural effusions. 2. Mildly progressed bibasilar opacities suggestive of atelectasis. Pneumonitis could appear similarly. ACT 112: Negative or not required by law. The above report was generated using voice recognition software. It may contain grammatical, syntax or spelling errors. Electronically signed by: Rafa Jackson M.D. 07/17/2022 3:22 PM Chest CTA 07/17/22 17:16 CT angio chest PE protocol CT DOSE: 272.21 mGy.cm HISTORY: 86 years-old Male with hypoxia, pna vs PE. Acute hypoxia with possible pneumonia TECHNIQUE: Multiple CTA images of the chest were obtained after the intravenous administration of 110 ml Optiray. Coronal and sagittal MIPS were obtained from the axial data set and were submitted for review. All measurements were obtained according to NASCET criteria. A dose lowering technique was utilized adhering to the principles of ALARA. COMPARISON: Chest radiograph of same day, chest CT 03/27/2022, 11/05/2018 FINDINGS: CTA: The heart is upper limits of normal in size. No pericardial effusion. Left subclavian pacer. Aortic valve replacement. Extensive coronary artery calcifications. Atherosclerosis of the thoracic aorta without aneurysm. Descending thoracic aortic tortuosity. No pulmonary emboli identified. Limited evaluation of the segmental and subsegmental branches secondary to respiratory motion artifact. CT CHEST: No thyroid nodule. Chronic mediastinal lymphadenopathy is likely secondary to the patient's chronic interstitial lung disease. Subcarinal lymph node measures up to 1.1 cm. Borderline enlarged hilar lymph nodes measure up to 1.0 cm. There is a considerable amount of pneumomediastinum with trace right sided pneumothorax. Chronic interstitial lung disease with subpleural reticulation and bibasilar predominant traction bronchiectasis and left greater than right honeycombing similar to prior. Mildly progressed bibasilar groundglass densities. Limited evaluation of the lungs secondary to respiratory motion artifact. There are no new suspicious pulmonary nodules or masses. Central airways appear patent. Unremarkable appearance of the esophagus. No acute process of the imaged upper abdomen. Surgical clips within the pauline hepatis. Degenerative changes of the shoulders and spine. IMPRESSION: 1. Study degraded by respiratory motion artifact. No central pulmonary emboli identified. 2. Considerable amount of pneumomediastinum with subcutaneous emphysema tracking into the neck. Additionally, there is a trace right-sided pneumothorax. Statistically, bronchoalveolar injury is favored. 3. Chronic interstitial lung disease with mildly progressed bibasilar opacities suggestive of atelectasis/fibrosis. 4. Unchanged mediastinal and hilar lymphadenopathy, likely secondary to the chronic interstitial lung disease. ACT 112: Negative or not required by law. The above report was generated using voice recognition software. It may contain grammatical, syntax or spelling errors. Electronically signed by: Rafa Jackson M.D. 07/17/2022 5:59 PM Discharge Plan Visit Data Chief Complaint: Shortness of Breath/Dyspnea Stated Complaint: RESP DIFFICULTY ED Provider: Johnny Herrera Discharge Problem: Pneumonitis, Pulmonary fibrosis, Pneumomediastinum, SOB (shortness of breath) Patient Disposition: Admitted As Inpatient Discharge Instructions Interventions: ED Discharge Assessment Last Done: 07/17/22 19:26
[2022-07-18] MEDS: CEFEPIME 2,000 MG in SYRINGE 0 ML IV SCH ×2 (00:53→11:25)
[2022-07-18] MEDS ORDERED: VANCOMYCIN HCL 1,000 MG in SODIUM CHLORIDE 0.9% 250 ML IV SCH (04:00)
[2022-07-18 07:18] LABS: Basophils # (auto) 0.01 K/uL (0-0.2); Basophils % (auto) 0.2 %; Hematocrit (blood only) 30.5 % (40.1-51.0); Hemoglobin 10.4 g/dl (14.0-18.0); Immature Granulocytes # (auto) 0.04 K/uL (0.00-0.02); Immature Granulocytes % (auto) 0.8 %; Lymphocytes # (auto) 1.03 K/uL (1.2-3.4); Lymphocytes % (auto) 20.6 %; Mean Corpuscular Hemoglobin 33.7 pg (25.0-34.0); Mean Corpuscular Hgb Conc 34.1 g/dL (32.0-36.0); Mean Corpuscular Volume 98.7 fL (80.0-100.0); Mean Platelet Volume 10.4 fL (9.4-12.4); Monocytes # (auto) 0.17 K/uL (0.24-0.82); Monocytes % (auto) 3.4 %; Neutrophils # (auto) 3.74 K/uL (1.4-6.5); Nucleated RBC # (auto) 0.02 K/uL (0-0); Nucleated RBC % (auto) 0.4 %; Platelet Count 163 K/uL (130-400); RDW Coefficient of Variation 14.9 % (11.5-14.5); RDW Standard Deviation 54.4 fL (36.4-46.3); Red Blood Count 3.09 M/uL (4.63-6.08); White Blood Count 4.99 K/ul (4.8-10.8)
[2022-07-18 07:45] LABS: BUN Creatinine Ratio 39.1 (10-20); Calcium 9.3 mg/dl (8.5-10.1); Creatinine Clr Calc Pharmacy 57.4 ml/min; Est GFR (African American) 104.2 ml/min; Est GFR (Non-African American) 89.9 ml/min; Magnesium 1.6 mg/dl (1.7-2.4); Phosphorus 3.8 mg/dl (2.5-4.9); Potassium 4.5 mmol/L (3.5-5.1)
[2022-07-18 07:47] LABS: INR 2.7 (0.9-1.1); Prothrombin Time 27.3 Seconds (9.0-12.0)
--- NOTE | 2022-07-18 07:58 | Pulmonary Consultation ---
Date of Consultation July 18, 2022 Assessment & Plan (1) Pulmonary fibrosis: (2) Pneumomediastinum: (3) SOB (shortness of breath): (4) Acute and chronic respiratory failure with hypoxia: Plan CT chest 07/17/2022 personally reviewed: Pneumomediastinum appreciated, questionable right apical pneumothorax, bilateral apical pleural scarring Increased reticular markings appreciated bilaterally especially on the left side with honeycombing Insignificant mediastinal lymphadenopathy -- Pneumomediastinum with small right apical pneumo Spontaneous Likely from bouts of coughing Continue with antitussive medication [id number] No indication for any intervention Avoid any measures which increases intrathoracic pressure which includes flutter valve No BiPAP or high flow --IPF with moderate restrictive lung disease Has had multiple rounds of prednisone as an outpatient That has been gradually worsening on the CT chest I do not think patient was ever on any antifibrotic's Given the current presentation I do not think antifibrotic's will make any significant change in his overall prognosis The CAT scan of the chest was motion degraded, I do not feel that there is acute exacerbation of his underlying ILD right now PFT 04/12/2022: Moderate restrictive lung disease, severe decrease in DLCO FVC 2.36 L 63%, FEV1 2.3 L 90%, FEV1/FVC 98%, TLC 58%, DLCO 40% -- COVID-19 positive Initially was positive on 06/21/2022 Repeat test positive 07/17/2022 Plan: Chest x-ray from today does not show clear evidence of right apical normal Continue with nonrebreather, antitussive medication [id number] Continue with antibiotics for the time being Solu-Medrol 40 mg daily Overall prognosis of the patient irrespective of the pneumomediastinum is poor. Please note the above document was generated using voice recognition software. It may contain grammatical, syntax or spelling errors.Any formal questions or concerns about the content, text or information contained within the body of this dictation should be directly addressed to the provider for clarification. History of Present Illness Attending Physician: Fei Garcia MD History of Present Illness 86-year-old male was admitted because of pneumomediastinum Past medical history: IPF, s/p aortic valve replacement on warfarin, CABG, hypertension, dyslipidemia Patient recently had COVID-19 June 21, 2022 for which she was admitted for 3 days. Patient was sent from pulmonary office as he was hypoxic and more short of breath than his baseline In the ED patient had a CT a done which showed no signs of pulmonary embolism but there was pneumomediastinum and small right apical pneumo Pulmonary consulted for the same At the time of examination patient was on nasal cannula 15 L saturating 97%. He stated he is feeling well compared to before He has been coughing lately but not bringing up any phlegm Denies any hemoptysis. No history of trauma Is usually not on oxygen at home. Denies any fever or chills No headache, no blurry vision No dysuria, diarrhea No chest pain. Social history: Smoked for maybe 2-3 years when he was in the back in the 1960s Allergies Allergy/AdvReac Type Severity Reaction Status Date / Time No Known Allergies Allergy Verified 07/17/22 18:26 Home Medications Medication Instructions Recorded Confirmed Type allopurinol 300 mg tablet 300 mg PO DAILY #90 tabs 02/19/22 07/17/22 Rx warfarin 3 mg tablet 3 mg PO QPM #90 tabs 02/19/22 07/17/22 Rx Oxygen Home #4 L 06/12/22 06/21/22 Rx Portable Oxygen #1 ea 06/12/22 06/21/22 Rx metoprolol succinate 50 mg 25 mg PO QAM #90 tabs 06/23/22 07/17/22 Rx tablet,extended release 24 hr tamsulosin 0.4 mg capsule 0.4 mg PO DAILY #30 caps 07/02/22 07/17/22 Rx amoxicillin 500 mg tablet 2,000 mg PO DIRECTED PRN PRIOR 07/17/22 07/17/22 History TO DENTAL APPT. atorvastatin 20 mg tablet 20 mg PO HS 07/17/22 07/17/22 History Patient History Medical History (Updated 07/17/22 @ 23:05 by Johnny Herrera MD) Acute exacerbation of idiopathic pulmonary fibrosis Anemia Anticoagulant long-term use Elevated prostate specific antigen (PSA) Hearing loss High serum ferritin HTN (hypertension) Hyperlipidemia Hypoxemia Hypoxemia Interstitial lung disease IPF (idiopathic pulmonary fibrosis) Low BMI Mediastinal adenopathy Multiple lung nodules on CT Pacemaker Paroxysmal A-fib Paroxysmal ventricular tachycardia Subdural hematoma (01/2019) Surgical History Hx of cholecystectomy Hx of tonsillectomy 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) S/P craniotomy (01/2019) Family History Father Lung cancer Sister Breast cancer Unknown Hypertension Other Anticoagulant long-term use Family history non-contributory Hyperlipidemia Pacemaker Denies family history of Colon cancer Ovarian cancer Prostate cancer Myocardial infarction Social History Smoking Status: Former smoker Tobacco Type: Cigarettes Age Quit Using Tobacco: 41; packs per day: 0.25; Years Smoked: 4; Cigarettes Per Day: 1/4 of a pack; Number of Years Since Quit: 45; Second Hand Exposure: Yes; Hx Alcohol Use: No Hx Substance Use: No Preferred Language: Marshallese Communication Ability: Effective Visual Impairment: No Limitations Hearing Ability: Normal Head Track Coach Required: No Beliefs That Will Affect Care: None marital status: Current Living Situation: Alone current occupational status: retired Feels Safe at Home: Yes Safety Concerns: Feels Safe At This Time Childhood Exposure to Second-Hand Smoke: Yes Dental Care, Regularly: Yes Physical Activity Frequency: Does not Exercise Seatbelt Use: always Sunscreen Use: No Assistive Devices: Cane, Crutches, Walker and Wheelchair Review of Systems Review of Systems: All systems reviewed & are unremarkable except as noted in HPI & below Physical Exam Physical Exam: Constitutional: No acute distress HEENT: EOMI, PERRLA, no subcutaneous crepitus Respiratory system: Decreased air entry bilaterally, no wheeze, rhonchi, positive Velcro-like crackles appreciated bilaterally more on the left lower side CVS: S1-S2 positive, mechanical heart sound appreciated Abdomen: Soft, nontender, nondistended, positive bowel sounds x4 Extremities: +2 pulses bilaterally radialis/ dorsalis pedis, no cyanosis, no edema Neuro: Awake alert oriented x3 Psych: Normal mood and affect G/U: No Foreman Skin: no rashes, warm and dry Lymphatic: no cervical or axillary lymphadenopathy Results & Data Results & Data ([facility]) Vital Signs (Past 12 Hours) Vital Signs Temp Pulse Resp BP Pulse Ox O2 Del Method O2 Flow Rate 07/18/22 06:44 36.4 C L 64 18 91/51 L 100 Non-rebreather 15 07/18/22 03:04 36.4 C L 60 18 92/53 L 100 Non-rebreather 07/17/22 23:01 36.7 C 71 20 91/51 L 100 Non-rebreather 15 Laboratory Results 07/18/22 06:51 07/18/22 06:51 PG Care Time/CCT Total # of Minutes Spent Total Time Spent with Patient: Total time spent is greater than 50% in coordination of care (as documented) at patient's floor/unit and/or counseling patient: Coding Level of Care Code 19086 Initial Inpt Care Lvl 3 Diagnoses Pulmonary fibrosis J84.10 Pneumomediastinum J98.2 SOB (shortness of breath) R06.02 Acute and chronic respiratory failure with hypoxia J96.21
--- NOTE | 2022-07-18 08:12 | Hospitalist Progress Note ---
Date of Service July 18, 2022 Assessment & Plan (1) Pneumothorax: Plan: pneumomediastinum noted without pneumothorax, repeat CXR on 07/18 stable, Codeine/guaifenesin 5ml QID Non-rebreather 15LPM O2 continuous Consult pulmonology - Dr Madison recommends 100% nonrebreather for 24 hours. (2) Acute and chronic respiratory failure with hypoxia: Plan: Oxygen as above. Will also cover for pneumonia with, cefepime,azithromycin transition to doxycycline given QT prolongation- vancomycin d/c'd as MRSA nasal swab negative Solu-Medrol given for pulmonary fibrosis - 100% nrb to treat penumonmediastinum (3) Sarcopenia: Plan: Consult dietary (4) Low BMI: Plan: As above (5) IPF (idiopathic pulmonary fibrosis): Plan: Solu-Medrol as above (6) HTN (hypertension): Plan: Continue metoprolol succinate 25mg PO daily with hold parameters for hypotension and bradycardia (7) Hyperlipidemia: Plan: Continue atorvastatin 20mg PO HS (8) Paroxysmal A-fib: Plan: INR 2.8. Continue warfarin 3mg PO daily. Monitor for increased INR with azithromycin use. (9) S/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: (10) S/P CABG (coronary artery bypass graft): (11) CAD (coronary artery disease): (12) Swallowing dysfunction: Plan: Known severe oropharyngeal dysphagia Aspiration precautions as outlined in last speech and language note Patient with moderate to severe protein calorie malnutrition and sarcopenia dietary supplements added 07/18 (13) COVID-19: Plan: persistantly positive from 06/21/22 test no active pneumonia at this time Plan VTE Prophylaxis - INR therapeutic Diet - minced and moist heart healthy diet PT OT evaluation given advanced age and frailty Admission and Anticipated Discharge Date Admission Date: July 17, 2022 Subjective Patient is tolerating his nonrebreather well he is able to eat food well on nasal cannula he has a nonproductive cough otherwise he is without focal complaints or problems antibiotics were changed to doxycycline Review of Systems Review of Systems: Mild distress and fatigue no headache, no visual changes no speech or swallowing issues no chest pain, pressure or palpitations Baseline shortness of breath given pulmonary fibrosis nonproductive cough no pleuritic chest pain no abdominal pain, nausea or vomiting, diarrhea or constipation no dysuria, hematuria or frequency no focal joint pain or swelling no back pain, CVA tenderness or radicular pain no bruising, bleeding or rashes no focal signs of weakness or numbness or altered sensation no complaints of anxiety or depression.. Physical Exam Physical Exam: The patient appeared well nourished and normally developed. Vital signs as documented. Head exam is normocephalic atraumatic Neck is without JVD, thyromegaly, or carotid bruits. Lungs are diminished air movement and bilateral rales Cardiac exam, Rhythm is regular.. Systolic ejection murmur heard at the right upper sternal border Abdominal exam reveals normal bowel sounds, soft non tender, no masses Extremities are nonedematous and both pedal pulses are present Neurologic exam is alert and oriented, no focal loss of strength or sensation Skin is without bruises or rashes no tactile or subcutaneous emphysema as previously described Psychologically is without concerns for anxiety or depression.. Results & Data Results & Data ([facility]) Vital Signs (Past 12 Hours) Vital Signs Temp Pulse Resp BP Pulse Ox O2 Del Method O2 Flow Rate 07/18/22 06:44 97.5 F L 64 18 91/51 L 100 Non-rebreather 15 07/18/22 03:04 97.5 F L 60 18 92/53 L 100 Non-rebreather 07/17/22 23:01 98.1 F 71 20 91/51 L 100 Non-rebreather 15 PG Care Time/CCT Total # of Minutes Spent Total Time Spent with Patient: Total time spent is greater than 50% in coordination of care (as documented) at patient's floor/unit and/or counseling patient: Coding Level of Care Code 91286 Subseq Hosp Care Lvl 3 Diagnoses Pneumothorax J93.9 Acute and chronic respiratory failure with hypoxia J96.21 Sarcopenia M62.84 Low BMI IPF (idiopathic pulmonary fibrosis) J84.112 HTN (hypertension) I10 Hyperlipidemia E78.5 Paroxysmal A-fib I48.0 S/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 Z95.4 S/P CABG (coronary artery bypass graft) Z95.1 CAD (coronary artery disease) I25.10 Associated angina: without angina Coronary Disease-Associated Artery/Lesion type: [place] artery [place] vs. transplanted heart: [place] heart Swallowing dysfunction R13.10 COVID-19 U07.1 (1) CAD (coronary artery disease) Associated angina: without angina Coronary Disease-Associated Artery/Lesion type: [place] artery [place] vs. transplanted heart: [place] heart Qualified Code(s): I25.10 - Atherosclerotic heart disease of [place] coronary artery without angina pectoris
[2022-07-18] MEDS ORDERED: MAGNESIUM SULFATE / D5W 1 GM/100 ML BAG IV ONE (08:30)
[2022-07-18] MEDS: allopurinoL 300 MG TAB PO SCH (08:52)
[2022-07-18] MEDS: TAMSULOSIN HCL 0.4 MG CAP PO SCH (08:52)
[2022-07-18] MEDS: guaiFENesin/CODEINE 100MG/10MG 5ML UDC PO SCH ×4 (08:56→20:21)
--- NOTE | 2022-07-18 08:59 | XRay Report ---
SINGLE VIEW CHEST CLINICAL HISTORY: Dyspnea. FINDINGS: An AP, portable, upright chest radiograph is compared to chest x-ray and chest CT dated 07/17/2022. A 2-lead cardiac pacemaker is unchanged in position and partially obscures the left mid chest . The patient is status post midline sternotomy and cardiac valve surgery. The heart is enlarged noti ng atherosclerotic calcification of the thoracic aorta. The pulmonary vasculature is not congested. F indings of chronic fibrotic lung disease are similar to previous. There is likely trace residual righ t apical pneumothorax. Pneumomediastinum is unchanged. Question superimposed airspace consolidation a t the left lung base. No large pleural effusion is identified. The skeletal structures are osteopenic . The bony thorax is grossly intact. Cholecystectomy clips are noted in the right upper quadrant. IMPRESSION: 1. Cardiomegaly and cardiac pacemaker without radiographic evidence of congestive failure 2. There is likely trace residual right apical pneumothorax. Pneumomediastinum persists. 3. Findings of chronic interstitial/fibrotic lung disease are similar to previous. 4. Question superimposed airspace consolidation at the left lung base. Clinical correlation will be r equired. ACT 112: Negative or not required by law. Electronically signed by: Jeovanny Urbina M.D. 07/18/2022 8:58 AM
[2022-07-18] MEDS: METOPROLOL SUCC 25MG EXT REL TAB PO SCH (10:34)
[2022-07-18] MEDS: DOXYCYCLINE HYCLATE 100 MG in DEXTROSE 5% 100 ML IV SCH (13:30)
[2022-07-18] MEDS: methylPREDNISolone 40 MG in SYRINGE 0 ML IV SCH (14:54)
--- NOTE | 2022-07-18 15:55 | Electrocardiogram Report ---
Test Reason : Blood Pressure : / mmHG Vent. Rate : 067 BPM Atrial Rate : 067 BPM P-R Int : 272 ms QRS Dur : 176 ms QT Int : 460 ms P-R-T Axes : 261 -79 034 degrees QTc Int : 486 ms Atrial-sensed ventricular-paced rhythm with prolonged AV conduction Abnormal ECG When compared with ECG of 17-JUL-2022 14:46, Vent. rate has decreased BY 8 BPM Confirmed by José Altman ([id number]) on 07/18/2022 3:55:27 PM Referred By: REFERRED SELF Confirmed By:jC Altman
[2022-07-18] MEDS: ATORVASTATIN 20 MG TAB PO SCH (20:21)
[2022-07-18] MEDS: WARFARIN SOD 3 MG TAB PO SCH (20:21)
[2022-07-19] MEDS: DOXYCYCLINE HYCLATE 100 MG in DEXTROSE 5% 100 ML IV SCH (00:57)
[2022-07-19] MEDS: CEFEPIME 2,000 MG in SYRINGE 0 ML IV SCH ×2 (00:57→12:00)
[2022-07-19 08:32] LABS: INR 4.5 (0.9-1.1); Prothrombin Time 43.9 Seconds (9.0-12.0)
[2022-07-19 08:33] LABS: Creatinine Clr Calc Pharmacy 57.4 ml/min; Est GFR (African American) 104.2 ml/min; Est GFR (Non-African American) 89.9 ml/min
[2022-07-19] MEDS: METOPROLOL SUCC 25MG EXT REL TAB PO SCH (09:03)
[2022-07-19] MEDS: allopurinoL 300 MG TAB PO SCH (09:04)
[2022-07-19] MEDS: TAMSULOSIN HCL 0.4 MG CAP PO SCH (09:05)
[2022-07-19] MEDS: methylPREDNISolone 40 MG in SYRINGE 0 ML IV SCH (09:08)
[2022-07-19] MEDS: guaiFENesin/CODEINE 100MG/10MG 5ML UDC PO SCH (09:13)
--- NOTE | 2022-07-19 11:04 | Pulmonology Progress Note ---
Date of Service July 19, 2022 Assessment & Plan (1) Pulmonary fibrosis: (2) Pneumomediastinum: (3) SOB (shortness of breath): (4) Acute and chronic respiratory failure with hypoxia: Plan CT chest 07/17/2022 personally reviewed: Pneumomediastinum appreciated, questionable right apical pneumothorax, bilateral apical pleural scarring Increased reticular markings appreciated bilaterally especially on the left side with honeycombing Insignificant mediastinal lymphadenopathy -- Pneumomediastinum with small right apical pneumo Spontaneous Likely from bouts of coughing Continue with antitussive medication [id number] No indication for any intervention Avoid any measures which increases intrathoracic pressure which includes flutter valve No BiPAP or high flow --IPF with moderate restrictive lung disease Has had multiple rounds of prednisone as an outpatient That has been gradually worsening on the CT chest I do not think patient was ever on any antifibrotic's Given the current presentation I do not think antifibrotic's will make any significant change in his overall prognosis The CAT scan of the chest was motion degraded, I do not feel that there is acute exacerbation of his underlying ILD right now PFT 04/12/2022: Moderate restrictive lung disease, severe decrease in DLCO FVC 2.36 L 63%, FEV1 2.3 L 90%, FEV1/FVC 98%, TLC 58%, DLCO 40% -- COVID-19 positive Initially was positive on 06/21/2022 Repeat test positive 07/17/2022 Plan: Chest x-ray from today does not show any clear evidence of pneumothorax or mediastinum Continue with antitussive medication [id number] for the next couple of days Complete the course of doxycycline for 4 days. Okay to discontinue cefepime Solu-Medrol, transition to prednisone 40 mg for 3 days followed by 20 mg for 2 days Will need 4 L oxygen on exertion Case was discussed with Dr. Garcia Please note the above document was generated using voice recognition software. It may contain grammatical, syntax or spelling errors.Any formal questions or concerns about the content, text or information contained within the body of this dictation should be directly addressed to the provider for clarification. Admission and Anticipated Discharge Date Admission Date: July 17, 2022 Subjective Patient seen and examined at bedside. No acute distress, no adverse events overnight. Patient just had finished OT when I came to see the patient He was saturating 87% on 3 L. He will most likely need 4 L on exertion On sitting his oxygenation did improve to 93-94% on 3 L Overall he states that he is feeling better. Denies any chest pain Coughing is improved Review of Systems Review of Systems: All systems reviewed & are unremarkable except as noted in Subjective Physical Exam Physical Exam: Constitutional: No acute distress HEENT: EOMI, PERRLA, no subcutaneous crepitus Respiratory system: Decreased air entry bilaterally, no wheeze, rhonchi, positive Velcro-like crackles appreciated bilaterally more on the left lower side CVS: S1-S2 positive, mechanical heart sound appreciated Abdomen: Soft, nontender, nondistended, positive bowel sounds x4 Extremities: +2 pulses bilaterally radialis/ dorsalis pedis, no cyanosis, no edema Neuro: Awake alert oriented x3 Psych: Normal mood and affect G/U: No Foreman Skin: no rashes, warm and dry Lymphatic: no cervical or axillary lymphadenopathy Results & Data Results & Data ([facility]) Vital Signs (Past 12 Hours) Vital Signs Temp Pulse Pulse Resp BP Pulse Ox O2 Del Method 07/19/22 10:39 100 Nasal Cannula 07/19/22 07:30 Non-rebreather 07/19/22 08:00 37.0 C 72 18 97/63 L 97 07/19/22 07:44 60 07/19/22 03:42 36.8 C 60 18 107/62 100 Non-rebreather 07/18/22 23:21 36.7 C 65 16 93/56 L 100 Non-rebreather O2 Flow Rate 07/19/22 10:39 5 07/19/22 07:30 15 07/19/22 08:00 07/19/22 07:44 07/19/22 03:42 07/18/22 23:21 15 Laboratory Results 07/18/22 06:51 07/19/22 07:47 PG Care Time/CCT Total # of Minutes Spent Total Time Spent with Patient: Total time spent is greater than 50% in coordination of care (as documented) at patient's floor/unit and/or counseling patient: Coding Level of Care Code 42755 Subseq Hosp Care Lvl 2 Diagnoses Pulmonary fibrosis J84.10 Pneumomediastinum J98.2 SOB (shortness of breath) R06.02 Acute and chronic respiratory failure with hypoxia J96.21
--- NOTE | 2022-07-19 11:30 | XRay Report ---
XR chest 1V portable CLINICAL HISTORY: f/u COMPARISON STUDY: Chest CT July 17, 2020. Chest radiograph July 18, 2022. FINDINGS: A left subclavian pacer is in place. A trace right apical pneumothorax has slightly decreas ed. Pneumomediastinum has also slightly decreased. Underlying interstitial lung disease is again note d. There are mediastinal wires and a prosthetic aortic valve. Cardiomediastinal silhouette is stable. No pleural effusion is identified. Mild left basilar opacity is again noted. IMPRESSION: 1. Trace right apical pneumothorax and pneumomediastinum, slightly decreased since prior exam. 2. Persistent mild left basilar opacity. This may reflect an infectious process. 3. Interstitial lung disease. ACT 112: Negative or not required by law. Electronically signed by: Bry Lloyd M.D. 07/19/2022 11:28 AM
--- NOTE | 2022-07-19 19:26 | Discharge Summary ---
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 He was recently admitted here from June 21 - 2021 due to acute exacerbation of idiopathic pulmonary fibrosis with COVID-19. Since that admission he has had slowly worsening shortness of breath and worsening hypoxia. On discharge he was only prescribed oxygen on exertion. He has not been eating or drinking well. No chest pain. Associated dry cough. No nasal congestion, sinus pain, fever or chills. He followed up with his [employer] pin bowling [employer] manager in clinic today and recommended coming to the ER for advanced imaging, antibiotics and steroids. In the ER CT for PE was negative for pulmonary embolism but showed subcutaneous emphysema, pneumomediastinum and trace right pneumothorax. He was referred to medicine for admission and ongoing mangement of this. Principal Diagnosis (1) Pneumomediastinum (2) Pulmonary fibrosis: (3)) Acute and chronic respiratory failure with hypoxia: Discharge Exam The patient appeared stable he is chronically ill and requires 4 L of oxygen Vital signs as documented. No subcutaneous emphysema noted Lungs are diminished bilateral breath sounds with some crackles Neurologic exam is alert and oriented, no focal loss of strength or sensation Skin is without bruises or rashes Psychologically is without concerns for anxiety or depression. Discharge Data Allergies Allergy/AdvReac Type Severity Reaction Status Date / Time No Known Allergies Allergy Verified 07/17/22 18:26 Consultations 07/17/22 18:14 Consult Pulmonology Routine ED Decision to Admit Stat Ordered Studies 07/17/22 17:16 CT angio chest PE protocol Stat Hospital Course (1) Pneumothorax: pneumomediastinum noted without pneumothorax, repeat CXR on 07/18 stable, Cod eine/guaifenesin 5ml QID recommended for 3 additional days Returns to 4 L nasal cannula will recommend he uses it [id number] Patient follow-up with outpatient pulmonary medicine (2) Acute and chronic respiratory failure with hypoxia: Oxygen as above. Will be discharged on outpatient steroids and antibiotics, prednisone taper and Augmentin (3) Sarcopenia: Reinforced needs to augment diet and gain weight consideration is challenging given he is a significant aspiration risk by a video swallow from 2020 showing the patient aspirates all liquids and solids. We discussed this at length with his daughter. Including safe strategies for swallowing and possibility of adding Thick-It to his diet (4) Low BMI: As above (5) IPF (idiopathic pulmonary fibrosis): Tapering outpatient prednisone dose (6) HTN (hypertension): Continue metoprolol succinate 25mg PO daily (7) Hyperlipidemia: Continue atorvastatin 20mg PO HS (8) Paroxysmal A-fib: Continue warfarin 3mg PO daily. (9) S/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: (10) S/P CABG (coronary artery bypass graft): (11) CAD (coronary artery disease): (12) Swallowing dysfunction: Known severe oropharyngeal dysphagia Aspiration precautions as outlined in last speech and language note Patient with moderate to severe protein calorie malnutrition and sarcopenia dietary family will attempt to augment diet at home (13) COVID-19: persistantly positive from 06/21/22 test no active pneumonia at this time Total Time Total Time Spent Total Time Spent (In Minutes): It required greater than 30 minutes to prepare this patient for discharge Discharge Plan Discharge Items Patient Disposition: Home - Home Health Services Reason For Visit: IDIOPATHIC PULMONARY FIBROSIS EXACERBATION, PNEUMO Discharge Diagnosis: pneumomediastinum chronic aspiration pulmonary fibrosis Activity: Resume your previous activity Activity Comment: wear oxyen at all times Non-emergency contact: Primary Care Provider and Kettle Skimmer Call non-emergency contact if: your symptoms worsen Follow-up/Referrals: Pro,Benoit Nguyen MD [Primary Care Provider] - 07/25/22 3:00 pm (Sarahi Jamil PA-C) Diet: Regular Liquid Consistency: [place] thick Diet Comment: use thick it, Addtl Attending Provider Instructions: please use anti cough medicine Pt did have speech eval 04/03/22 found that Mr Beckman has significant aspiration of liquids into his lungs, with all oral intake, worsened with liquids he should eat and drink sitting upright, no large pieces of food or hard foods, soft foods and purees are recommended thick liquid like foods are best such as apple sauce and yogurt, or thickened soups crush all medicines if able and use apples sauce or pudding to take be sure to cleanse mouth after eating single bites and sips and clear mouth between each no straws with regard to his lungs finish antibiotics and prednisone, follow up with Dr Judge until you see Dr Rondon wear oxygen at all times use cough medicine carefully, it may cause drowsiness, fatigue or confusion Pending Studies at Discharge: No Stand-Alone Forms: My [facility] [employer], Smoking Cessation Medications and DC Order Prescriptions: New codeine-guaifenesin [Guaiatussin AC] 10-100 mg/5 mL Liquid 5 ml PO QID Qty: 60 0RF amoxicillin-pot clavulanate 875-125 mg tablet 1 tab PO BID Qty: 10 0RF (DME) Oxygen Home Liters Per Minute See Rx Instructions .ROUTE Qty: 4 0RF Rx Instructions: As directed prednisone 10 mg tablet 10 mg PO UD Qty: 40 0RF Rx Instructions: 4 daily x4d_.3 [id number] daily x4d-> 1 daily Continued allopurinol 300 mg tablet 300 mg PO DAILY Qty: 90 1RF warfarin 3 mg tablet 3 mg PO QPM Qty: 90 1RF Protocol: Dose Management Condition: Saturday Dose/Route: 1.5 mg Instruction: 0.5 x 3 mg tablets Condition: Saturday Dose/Route: 3 mg Instruction: 1 x 3 mg tablet Condition: Saturday Dose/Route: 1.5 mg Instruction: 0.5 x 3 mg tablets Condition: Saturday Dose/Route: 3 mg Instruction: 1 x 3 mg tablet Condition: Dose/Route: 1.5 mg Instruction: 0.5 x 3 mg tablets Condition: Saturday Dose/Route: 3 mg Instruction: 1 x 3 mg tablet Condition: Saturday Dose/Route: 1.5 mg Instruction: 0.5 x 3 mg tablets Protocol Text: Adjustment Start Date: Saturday07/17/22 INR Value: 2.8 INR Date: 07/17/22 Recheck Date: 07/31/22 Rx Instructions: PER PT "TO TAKE 4.5 MG FOR 4 DAYS, THEN RETURN TO 3 MG DAILY". tamsulosin 0.4 mg capsule 0.4 mg PO DAILY Qty: 30 2RF (DME) Oxygen Home Liters Per Minute See Rx Instructions .ROUTE .MEDSUPPLY Qty: 4 0RF Rx Instructions: Continuously humidified oxygen at 4 L/min via nc with exertion and at night (DME) Portable Oxygen Misc See Rx Instructions .Route Qty: 1 0RF Rx Instructions: Test for conserving device - 2 L/min via nasal cannula, lifetime need of 99 years metoprolol succinate 50 mg tablet extended release 24 hr 25 mg PO QAM Qty: 90 3RF atorvastatin 20 mg tablet 20 mg PO HS Discontinued amoxicillin 500 mg tablet 2,000 mg PO DIRECTED PRN (Reason: PRIOR TO DENTAL APPT.) Rx Instructions: 500 mg PO TAKE 4 TABLETS 1 HOUR BEFORE DENTIST APPOINTMENTS; Discharge Orders: Discharge Order (Routine); Ordered 07/19/22 Ordered By: Fei Garcia Admission Data Admit Date/Time: 07/17/22 18:13 Attending Provider: Fei Garcia Admit Provider: Sridhar Cool Primary Care Provider: Benoit Stauffer Other Providers: Sridhar Cool ; Tarik Madison Other Interventions: Discharge Summary Assessment (RN) Last Done: 07/19/22 11:49 Coding Level of Care Code D/C DAY MANAGEMENT >30 MINS Diagnoses Pneumothorax J93.9 Acute and chronic respiratory failure with hypoxia J96.21 Sarcopenia M62.84 Low BMI IPF (idiopathic pulmonary fibrosis) J84.112 HTN (hypertension) I10 Hyperlipidemia E78.5 Paroxysmal A-fib I48.0 S/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 Z95.4 S/P CABG (coronary artery bypass graft) Z95.1 CAD (coronary artery disease) I25.10 Coronary Disease-Associated Artery/Lesion type: [place] artery [place] vs. transplanted heart: [place] heart Associated angina: without angina Swallowing dysfunction R13.10 COVID-19 U07.1
== END 2022-07-19 14:11 | disposition home health service (06) | DRG 199 ==
LOC: ED 14:30 → SUATTDRO 18:13 → 2S 18:13

== ENCOUNTER 2022-08-06 04:58 | Inpatient (IN) ==
[2022-08-06] MEDS ORDERED: SODIUM CHLORIDE 0.9% 1000ML 1,000 ML IV SCH (05:30)
[2022-08-06 06:00] LABS: Basophils # (auto) 0.02 K/uL (0-0.2); Basophils % (auto) 0.2 %; Eosinophils % (auto) 0.8 %; Hemoglobin 11.1 g/dl (14.0-18.0); Immature Granulocytes # (auto) 0.28 K/uL (0.00-0.02); Immature Granulocytes % (auto) 2.3 %; Lymphocytes # (auto) 1.64 K/uL (1.2-3.4); Lymphocytes % (auto) 13.2 %; Mean Corpuscular Hemoglobin 33.6 pg (25.0-34.0); Mean Corpuscular Hgb Conc 33.6 g/dL (32.0-36.0); Mean Platelet Volume 10.6 fL (9.4-12.4); Monocytes # (auto) 0.64 K/uL (0.24-0.82); Monocytes % (auto) 5.2 %; Neutrophils # (auto) 9.73 K/uL (1.4-6.5); Neutrophils % (auto) 78.3 %; Platelet Count 160 K/uL (130-400); RDW Coefficient of Variation 14.6 % (11.5-14.5); RDW Standard Deviation 54.1 fL (36.4-46.3); White Blood Count 12.41 K/ul (4.8-10.8)
[2022-08-06 06:02] LABS: Albumin Level 3.6 gm/dl (3.4-5.0); BUN Creatinine Ratio 32.8 (10-20); Bilirubin Direct 0.4 mg/dl (0-0.2); Bilirubin,Total 1.9 mg/dl (0.2-1.0); Calcium 9.4 mg/dl (8.5-10.1); Creatinine Clr Calc Pharmacy 62.5 ml/min; Est GFR (African American) 106.3 ml/min; Est GFR (Non-African American) 91.7 ml/min; Magnesium 1.6 mg/dl (1.7-2.4); Potassium 3.5 mmol/L (3.5-5.1); Total Protein 6.8 gm/dl (6.0-8.3)
[2022-08-06 06:06] LABS: Troponin I High Sensitivity 12.5 pg/ml (0-20)
[2022-08-06] MEDS ORDERED: MAGNESIUM SULFATE / D5W 1 GM/100 ML BAG IV STA (06:10)
[2022-08-06 06:25] LABS: INR 3.9 (0.9-1.1); Prothrombin Time 38.2 Seconds (9.0-12.0)
--- NOTE | 2022-08-06 06:30 | Emergency Department Note ---
History of Present Illness General Chief complaint: Rectal Pain Stated complaint: OPEN BED SORE/RECTAL BURNING/O2 Time Seen by Provider: 08/06/22 05:14 Source: patient and family Mode of arrival: ambulatory Limitations: no limitations History of Present Illness Provider complaint: Rectal pain, constipation, bedsore Maximum Pain Intensity: 10 This is an 86-year-old male brought in by family due to concern for rectal pain, change in stools, constipation, and a bedsore. He states he has had issues with his stool for quite some time. He did recently just finished a course of antibiotics and steroids for a lung infection as he has a history of pulmonary problems and wears oxygen chronically. He states he also has a developing wound to his sacrum which has been very painful. Patient denies any dietary changes. Patient denies any accompanying abdominal pain. He denies fevers, chills. He states he does use Coumadin due to history of a valve replacement. He was recently here for difficulty urinating and had a urinary catheter placed. He states he is due to follow-up with urology today to have it removed. He states yesterday he began noting blood in the urine also. Home Medications Medication Instructions Recorded Confirmed Type Oxygen Home #4 L 06/12/22 08/06/22 Rx Portable Oxygen #1 ea 06/12/22 08/06/22 Rx metoprolol succinate 50 mg 25 mg PO QAM #90 tabs 06/23/22 08/06/22 Rx tablet,extended release 24 hr Oxygen Home #4 L 07/19/22 08/06/22 Rx warfarin 3 mg tablet See Rx Instructions .Route .COMPLEX 07/31/22 08/06/22 History guar gum 1 gram tablet 1 g PO DAILY 08/06/22 08/06/22 History tamsulosin 0.4 mg capsule 0.4 mg PO HS 08/06/22 08/06/22 History Allergies Allergy/AdvReac Type Severity Reaction Status Date / Time No Known Allergies Allergy Verified 07/31/22 16:40 Past Med/Surg History Medical History AAA (abdominal aortic aneurysm) Acute exacerbation of idiopathic pulmonary fibrosis Anemia Anticoagulant long-term use Chronic respiratory failure with hypoxia Elevated prostate specific antigen (PSA) Hearing loss High serum ferritin HTN (hypertension) Hyperlipidemia Hypoxemia Hypoxemia Interstitial lung disease IPF (idiopathic pulmonary fibrosis) Low BMI Mediastinal adenopathy Multiple lung nodules on CT Pacemaker Paroxysmal A-fib Paroxysmal ventricular tachycardia Subdural hematoma (01/2019) Surgical History Hx of cholecystectomy Hx of tonsillectomy 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) S/P craniotomy (01/2019) Family History Father Lung cancer Sister Breast cancer Unknown Hypertension Other Anticoagulant long-term use Family history non-contributory Hyperlipidemia Pacemaker Denies family history of Colon cancer Ovarian cancer Prostate cancer Myocardial infarction Social History Smoking Status: Former smoker Tobacco Type: Cigarettes Age Quit Using Tobacco: 41; packs per day: 0.25; Years Smoked: 4; Cigarettes Per Day: 1/4 of a pack; Number of Years Since Quit: 45; Second Hand Exposure: No; Do You Dip or Chew Tobacco: No; Tobacco Cessation Education Requested by Patient: No Hx Alcohol Use: Yes Alcohol type: hard liquor Alcohol Intake Frequency Comment: 1-2 per day Hx Substance Use: No Preferred Language: Portuguese Communication Ability: Effective Visual Impairment: No Limitations Hearing Ability: Normal Inside Sales Consultant Required: No Beliefs That Will Affect Care: None marital status: / Current Living Situation: Alone current occupational status: retired How many Children do You have: 3 Other Information That Helps Us Care for You: No Feels Safe at Home: Yes Safety Concerns: Feels Safe At This Time Childhood Exposure to Second-Hand Smoke: Yes Dental Care, Regularly: Yes Physical Activity Frequency: Does not Exercise Seatbelt Use: always Sunscreen Use: No Assistive Devices: Cane and Walker Review of Systems A total of 10 systems reviewed and were otherwise negative All systems reviewed & are unremarkable except as noted in HPI & below Physical Exam Vital Signs Vital Signs - 24 hr 08/06/22 05:04 08/06/22 05:21 08/06/22 05:26 Temperature 36.8 C 36.4 C Temperature Source Temporal Artery Scan Oral Pulse Rate 91 H Pulse Rate [Finger] 79 Respiratory Rate 18 22 Respiratory Effort / Characteristics Non-Labored Spontaneous Non-Labored Spontaneous Respiratory Depth Normal Normal Respiratory Pattern Regular Blood Pressure 67/49 L Blood Pressure [Right Arm] 114/66 Blood Pressure Mean 55 Blood Pressure Mean [Right Arm] 82 Pulse Oximetry 93 97 100 Oxygen Delivery Method Nasal Cannula Nasal Cannula Nasal Cannula Oxygen Flow Rate 4 4 4 Sepsis Recent Fever Within 48 Hours No Sepsis New/Unexplained Change in Mental Status N/A Sepsis Action Taken by Nursing No Action Required 08/06/22 05:56 08/06/22 06:45 08/06/22 07:06 Temperature Temperature Source Pulse Rate Pulse Rate [Finger] 70 75 65 Respiratory Rate 20 22 16 Respiratory Effort / Characteristics Spontaneous Non-Labored Spontaneous Respiratory Depth Normal Respiratory Pattern Blood Pressure Blood Pressure [Right Arm] 108/56 L 125/71 126/70 Blood Pressure Mean Blood Pressure Mean [Right Arm] 73 89 88 Pulse Oximetry 100 100 100 Oxygen Delivery Method Nasal Cannula Nasal Cannula Room Air Oxygen Flow Rate 4 4 Sepsis Recent Fever Within 48 Hours Sepsis New/Unexplained Change in Mental Status Sepsis Action Taken by Nursing 08/06/22 07:25 08/06/22 07:40 08/06/22 07:51 Temperature Temperature Source Pulse Rate Pulse Rate [Finger] 67 64 75 Respiratory Rate 18 Respiratory Effort / Characteristics Respiratory Depth Respiratory Pattern Blood Pressure Blood Pressure [Right Arm] 106/62 116/62 111/73 Blood Pressure Mean Blood Pressure Mean [Right Arm] 76 80 85 Pulse Oximetry 100 100 100 Oxygen Delivery Method Room Air Oxygen Flow Rate Sepsis Recent Fever Within 48 Hours Sepsis New/Unexplained Change in Mental Status Sepsis Action Taken by Nursing 08/06/22 08:13 08/06/22 09:25 08/06/22 09:54 Temperature Temperature Source Pulse Rate Pulse Rate [Finger] 71 67 70 Respiratory Rate Respiratory Effort / Characteristics Respiratory Depth Respiratory Pattern Blood Pressure Blood Pressure [Right Arm] 101/55 L 105/60 Blood Pressure Mean Blood Pressure Mean [Right Arm] 70 75 Pulse Oximetry 100 100 100 Oxygen Delivery Method Room Air Nasal Cannula Nasal Cannula Oxygen Flow Rate 3 3 Sepsis Recent Fever Within 48 Hours Sepsis New/Unexplained Change in Mental Status Sepsis Action Taken by Nursing GENERAL: alert, unwell appearing, no distress, non-toxic EYE EXAM: normal conjunctiva, PERRL and EOM's grossly intact OROPHARYNX: no exudate, no erythema, lips, buccal mucosa, and tongue normal and mucous membranes are moist NECK: supple, no nuchal rigidity, no adenopathy, non-tender LUNGS: Clear to auscultation. Normal chest wall mechanics, no w/r/r HEART: no murmurs, S1 normal and S2 normal, pacemaker noted left anterior superior chest wall ABDOMEN: abdomen soft, non-tender, normo-active bowel sounds, no masses, no rebound or guarding. BACK: Back is symmetrical on inspection and there is no deformity, no midline tenderness, no CVA tenderness. Stage 1 sacral decubitus. SKIN: no rashes and no bruising UPPER EXTREMITIES: upper extremities are grossly normal. FROM, nml pulses b/l. LOWER EXTREMITIES: No pitting edema. FROM, nml pulses b/l. NEURO EXAM: Normal sensorium, cranial nerves II-XII grossly intact, normal speec h, no gross weakness of arms, no gross weakness of legs. Gross sensation intact. Course Course 0800: Updated pt on results. He states he still having rectal pain. 0810: Discussed with urology. Recommend leaving catheter in longer and rescheduling voiding trial. Agree with antibiotics. 0940: Patient attempting to have a bowel movement now bedside. 1002: Patient without any passage of stool. Still complains of pain at the rectum and in the lower abdomen/suprapubic region Administered Medications Metoprolol Succinate (Metoprolol Succ 25mg Ext Rel Tab) 25 mg PO QAM [facility] Stop: 09/06/22 08:59 Last Admin: 08/07/22 08:45 Dose: 25 mg Documented By: [id number] Multivitamins/Minerals (Multi Vit W/Minerals Liquid 15 Ml Udp) 15 ml PO QAM [facility] Stop: 09/06/22 08:59 Last Admin: 08/08/22 08:43 Dose: 15 ml Documented By: Admin: 08/07/22 08:45 Dose: 15 ml Documented By: [id number] Polyethylene Glycol (Polyethylene (Miralax) 17 Gm Pack) 17 gm PO Q6H [facility] Stop: 09/05/22 13:59 Last Admin: 08/08/22 08:43 Dose: 17 gm Documented By: Admin: 08/08/22 03:05 Dose: Not Given Documented By: Admin: 08/07/22 20:09 Dose: 17 gm Documented By: Admin: 08/07/22 13:55 Dose: 17 gm Documented By: [id number] Admin: 08/07/22 08:45 Dose: 17 gm Documented By: [id number] Admin: 08/07/22 02:48 Dose: 17 gm Documented By: Admin: 08/06/22 23:42 Dose: 17 gm Documented By: Admin: 08/06/22 15:46 Dose: 17 gm Documented By: MARLENY Psyllium Hydrophilic Mucilloid (Psyllium Or Guar Gum Fiber Powder Packet) 1 pkt PO DAILY [facility] Stop: 09/06/22 08:59 Last Admin: 08/08/22 08:43 Dose: 1 pkt Documented By: Admin: 08/07/22 08:45 Dose: 1 pkt Documented By: [id number] Senna/Docusate Sodium (Docusate Sodium/Senna 50/8.6mg Tab) 1 tab PO BID [facility] Stop: 09/05/22 13:59 Last Admin: 08/08/22 08:43 Dose: 1 tab Documented By: Admin: 08/07/22 20:09 Dose: 1 tab Documented By: Admin: 08/07/22 08:45 Dose: 1 tab Documented By: [id number] Admin: 08/06/22 23:41 Dose: 1 tab Documented By: Admin: 08/06/22 15:46 Dose: 1 tab Documented By: MARLENY Tamsulosin HCl (Tamsulosin Hcl 0.4 Mg Cap) 0.4 mg PO HS [facility] Stop: 09/05/22 20:59 Last Admin: 08/07/22 20:09 Dose: 0.4 mg Documented By: Admin: 08/06/22 23:41 Dose: 0.4 mg Documented By: TATY Thiamine HCl (Thiamine Hcl 100 Mg Tab) 100 mg PO QAM [facility] Stop: 09/06/22 08:59 Last Admin: 08/08/22 08:43 Dose: 100 mg Documented By: Admin: 08/07/22 08:45 Dose: 100 mg Documented By: [id number] Discontinued Medications Bisacodyl (Bisacodyl 10 Mg Supp) 10 mg RI NOW STA Stop: 08/06/22 13:13 Last Admin: 08/06/22 19:21 Dose: 10 mg Documented By: MARLENY Glycerin (Glycerin Adult 12 Supp/Box Supp) 1 supp RI NOW ONE Stop: 08/06/22 08:26 Last Admin: 08/06/22 08:34 Dose: 1 supp Documented By: ZAMZAM Sodium Chloride (Nss 1000ml) 1,000 mls @ 999 mls/hr IV .Q1H1M [facility] Stop: 08/06/22 06:30 Last Infusion: 08/06/22 06:44 Dose: 0 mls/hr Documented By: Admin: 08/06/22 05:38 Dose: 999 mls/hr Documented By: JUWAN Magnesium Sulfate/Dextrose (Magnesium Sulfate / D5w) 1 gm in 100 mls @ 100 mls/hr IV NOW STA Stop: 08/06/22 07:09 Last Infusion: 08/06/22 07:54 Dose: 0 mls/hr Documented By: Admin: 08/06/22 06:54 Dose: 100 mls/hr Documented By: JUWAN Ceftriaxone Sodium (Rocephin) 1,000 mg in 50 mls @ 100 mls/hr IV NOW STA Stop: 08/06/22 08:26 Last Infusion: 08/06/22 08:49 Dose: 0 mls/hr Documented By: Admin: 08/06/22 08:15 Dose: 100 mls/hr Documented By: ZAMZAM Sodium Chloride (Nss) 500 mls @ 999 mls/hr IV .Q31M ONE Stop: 08/06/22 08:32 Last Infusion: 08/06/22 08:49 Dose: 0 mls/hr Documented By: Admin: 08/06/22 08:16 Dose: 999 mls/hr Documented By: ZAMZAM Acetaminophen (Ofirmev) 1,000 mg in 100 mls @ 400 mls/hr IV NOW STA Stop: 08/06/22 08:38 Last Infusion: 08/06/22 08:48 Dose: 0 mls/hr Documented By: Admin: 08/06/22 08:30 Dose: 400 mls/hr Documented By: ZAMZAM Lactated Ringer's (Lr) 1,000 mls @ 70 mls/hr IV .[id number] [facility] Stop: 09/05/22 13:11 Last Infusion: 08/07/22 12:30 Dose: 0 mls/hr Documented By: [id number] Admin: 08/07/22 11:29 Dose: 70 mls/hr Documented By: [id number] Infusion: 08/07/22 11:29 Dose: 0 mls/hr Documented By: Jayden Admin: 08/06/22 21:54 Dose: 70 mls/hr Documented By: Infusion: 08/06/22 21:54 Dose: 70 mls/hr Documented By: Admin: 08/06/22 13:42 Dose: 70 mls/hr Documented By: MARLENY Magnesium Sulfate/Dextrose (Magnesium Sulfate / D5w) 1 gm in 100 mls @ 50 mls/hr IV Q2H [facility] Stop: 08/07/22 16:14 Last Infusion: 08/07/22 16:34 Dose: 0 mls/hr Documented By: [id number] Admin: 08/07/22 14:30 Dose: 50 mls/hr Documented By: [id number] Infusion: 08/07/22 14:30 Dose: 50 mls/hr Documented By: [id number] Admin: 08/07/22 12:30 Dose: 50 mls/hr Documented By: [id number] Sodium Chloride (Nss 1000ml) 500 mls @ 999 mls/hr IV .Q31M ONE Stop: 08/08/22 00:31 Last Infusion: 08/08/22 01:33 Dose: 999 mls/hr Documented By: Admin: 08/08/22 00:29 Dose: 999 mls/hr Documented By: AMBER Albumin Human (Albumin 25% 100 Ml) 25 gm in 100 mls @ 50 mls/hr IV ONE ONE Stop: 08/08/22 02:00 Last Infusion: 08/08/22 03:05 Dose: 50 mls/hr Documented By: Admin: 08/08/22 00:30 Dose: 50 mls/hr Documented By: AMBER Sodium Chloride (Nss 1000ml) 500 mls @ 999 mls/hr IV .Q31M ONE Stop: 08/08/22 05:39 Last Infusion: 08/08/22 05:47 Dose: 999 mls/hr Documented By: Admin: 08/08/22 05:16 Dose: 999 mls/hr Documented By: AMBER Albumin Human (Albumin 25% 100 Ml) 25 gm in 100 mls @ 50 mls/hr IV ONE ONE Stop: 08/08/22 07:08 Last Infusion: 08/08/22 07:24 Dose: 0 mls/hr Documented By: Admin: 08/08/22 05:24 Dose: 50 mls/hr Documented By: AMBER Influenza Virus Vaccine (Flu Vaccine-High Dose (Fluzone-Hd) Pf 65+ 0.7ml Syr) 0.7 ml IM .ONCE ONE Stop: 08/06/22 16:16 Last Admin: 08/07/22 10:14 Dose: 0.7 ml Documented By: [id number] Ioversol (Optiray 350 100ml) 100 ml IV ONCE ONE Stop: 08/06/22 06:40 Last Admin: 08/06/22 06:39 Dose: 88 ml Documented By: AKUA Magnesium Hydroxide (Magnesium Hydroxide Susp 30 Ml Udc) 30 ml PO NOW ONE Stop: 08/06/22 07:58 Last Admin: 08/06/22 08:02 Dose: 30 ml Documented By: ZAMZAM Potassium Chloride (Potassium Chloride Crtab 20 Meq Tabcr) 40 meq PO NOW STA Stop: 08/08/22 11:01 Last Admin: 08/08/22 11:31 Dose: 40 meq Documented By: GALILEA Sodium Biphosphate/Sodium Phosphate (Sod Phosphate/Sod Biphosphate Enema 132 Ml Btl) 132 ml RI NOW STA Stop: 08/06/22 13:13 Last Admin: 08/06/22 22:25 Dose: Not Given Documented By: TATY Sodium Biphosphate/Sodium Phosphate (Sod Phosphate/Sod Biphosphate Enema 132 Ml Btl) Confirm Administered Dose 132 ml RI .STK-MED ONE Stop: 08/06/22 22:21 Last Admin: 08/06/22 22:24 Dose: 132 ml Documented By: TATY Medical Decision Making Differential Diagnosis Differential: Functional, Impaction, Obstruction, Volvulus, Ischemic Bowel, Infectious, Neurologic, Metabolic, amongst other pathologies entertained. Medical Records Attestation: I reviewed the patient's medical records. Home Medications Current Medication List: was personally reviewed by me Laboratory Data Attestation: I reviewed the patient's lab results. Result diagrams: 08/08/22 08:33 08/08/22 08:33 Lab Results 08/06/22 08/06/22 08/06/22 Range/Units 05:20 05:20 05:20 WBC 12.41 H (4.8-10.8) K/ul RBC 3.30 L (4.63-6.08) M/uL Hgb 11.1 L (14.0-18.0) g/dl Hct 33.0 L (40.1-51.0) % MCV 100.0 (80.0-100.0) fL MCH 33.6 (25.0-34.0) pg MCHC 33.6 (32.0-36.0) g/dL RDW Std Deviation 54.1 H (36.4-46.3) fL RDW Coeff of Jill 14.6 H (11.5-14.5) % Plt Count 160 (130-400) K/uL MPV 10.6 (9.4-12.4) fL Immature Gran % (Auto) 2.3 % Neut % (Auto) 78.3 % Lymph % (Auto) 13.2 % Desha % (Auto) 5.2 % Eos % (Auto) 0.8 % Baso % (Auto) 0.2 % Neut # (Auto) 9.73 H (1.4-6.5) K/uL Lymph # (Auto) 1.64 (1.2-3.4) K/uL Desha # (Auto) 0.64 (0.24-0.82) K/uL Eos # (Auto) 0.10 (0-0.50) K/uL Baso # (Auto) 0.02 (0-0.2) K/uL Immature Gran # (Auto) 0.28 H (0.00-0.02) K/uL PT (9.0-12.0) Seconds INR (0.9-1.1) Sodium 131 L (136-145) mmol/L Potassium 3.5 (3.5-5.1) mmol/L Chloride 95 L (98-107) mmol/L Carbon Dioxide 30 (21-32) mmol/L Anion Gap 6 (3-11) BUN 20 (6-23) mg/dl Creatinine 0.61 (0.6-1.4) mg/dl Est Cr Clr Drug Dosing 62.5 ml/min Est GFR ( Amer) 106.3 ml/min Est GFR (Non-Af Amer) 91.7 ml/min BUN/Creatinine Ratio 32.8 H (10-20) Glucose 149 H (70-99(Fasting)) mg/dl Lactate 2.0 (0.4-2.0) mmol/L Calcium 9.4 (8.5-10.1) mg/dl Magnesium 1.6 L (1.7-2.4) mg/dl Total Bilirubin 1.9 H (0.2-1.0) mg/dl Direct Bilirubin 0.4 H (0-0.2) mg/dl AST 19 (13-39) U/L ALT 17 (7-52) U/L Alkaline Phosphatase 88 (34-104) U/L Troponin I High Sens 12.5 D (0-20) pg/ml Total Protein 6.8 (6.0-8.3) gm/dl Albumin 3.6 (3.4-5.0) gm/dl Procalcitonin (0-0.5) ng/ml Urine Color Urine Appearance (Clear) Urine pH (4.5-7.5) Ur Specific [place] (1.000-1.030) Urine Protein (Negative) Urine Glucose (UA) (Negative) Urine Ketones (Negative) Urine Blood (Negative) Urine Nitrite (Negative) Urine Bilirubin (Negative) Urine Urobilinogen (Negative) Ur Leukocyte Esterase (Negative) Urine RBC (0-4) /hpf Urine WBC (0-5) /hpf Ur Epithelial Cells (0-5) /lpf Calcium Oxalate Crystal (None Prsent) Urine Bacteria (Negative) SARS-CoV-2, RNA, NAAT (NEGATIVE) 08/06/22 08/06/22 08/06/22 Range/Units 05:20 05:20 05:30 WBC (4.8-10.8) K/ul RBC (4.63-6.08) M/uL Hgb (14.0-18.0) g/dl Hct (40.1-51.0) % MCV (80.0-100.0) fL MCH (25.0-34.0) pg MCHC (32.0-36.0) g/dL RDW Std Deviation (36.4-46.3) fL RDW Coeff of Jill (11.5-14.5) % Plt Count (130-400) K/uL MPV (9.4-12.4) fL Immature Gran % (Auto) % Neut % (Auto) % Lymph % (Auto) % Desha % (Auto) % Eos % (Auto) % Baso % (Auto) % Neut # (Auto) (1.4-6.5) K/uL Lymph # (Auto) (1.2-3.4) K/uL Desha # (Auto) (0.24-0.82) K/uL Eos # (Auto) (0-0.50) K/uL Baso # (Auto) (0-0.2) K/uL Immature Gran # (Auto) (0.00-0.02) K/uL PT 38.2 H (9.0-12.0) Seconds INR 3.9 H (0.9-1.1) Sodium (136-145) mmol/L Potassium (3.5-5.1) mmol/L Chloride (98-107) mmol/L Carbon Dioxide (21-32) mmol/L Anion Gap (3-11) BUN (6-23) mg/dl Creatinine (0.6-1.4) mg/dl Est Cr Clr Drug Dosing ml/min Est GFR ( Amer) ml/min Est GFR (Non-Af Amer) ml/min BUN/Creatinine Ratio (10-20) Glucose (70-99(Fasting)) mg/dl Lactate (0.4-2.0) mmol/L Calcium (8.5-10.1) mg/dl Magnesium (1.7-2.4) mg/dl Total Bilirubin (0.2-1.0) mg/dl Direct Bilirubin (0-0.2) mg/dl AST (13-39) U/L ALT (7-52) U/L Alkaline Phosphatase (34-104) U/L Troponin I High Sens (0-20) pg/ml Total Protein (6.0-8.3) gm/dl Albumin (3.4-5.0) gm/dl Procalcitonin < 0.05 (0-0.5) ng/ml Urine Color Red Urine Appearance Turbid A (Clear) Urine pH 6.0 (4.5-7.5) Ur Specific [place] 1.025 (1.000-1.030) Urine Protein 3+ H (Negative) Urine Glucose (UA) Negative (Negative) Urine Ketones Negative (Negative) Urine Blood 3+ H (Negative) Urine Nitrite Negative (Negative) Urine Bilirubin 1+ H (Negative) Urine Urobilinogen Positive H (Negative) Ur Leukocyte Esterase 1+ H (Negative) Urine RBC >30 H (0-4) /hpf Urine WBC >30 H (0-5) /hpf Ur Epithelial Cells 5-10 H (0-5) /lpf Calcium Oxalate Crystal Present A (None Prsent) Urine Bacteria Negative (Negative) SARS-CoV-2, RNA, NAAT (NEGATIVE) 08/06/22 Range/Units 10:35 WBC (4.8-10.8) K/ul RBC (4.63-6.08) M/uL Hgb (14.0-18.0) g/dl Hct (40.1-51.0) % MCV (80.0-100.0) fL MCH (25.0-34.0) pg MCHC (32.0-36.0) g/dL RDW Std Deviation (36.4-46.3) fL RDW Coeff of Jill (11.5-14.5) % Plt Count (130-400) K/uL MPV (9.4-12.4) fL Immature Gran % (Auto) % Neut % (Auto) % Lymph % (Auto) % Desha % (Auto) % Eos % (Auto) % Baso % (Auto) % Neut # (Auto) (1.4-6.5) K/uL Lymph # (Auto) (1.2-3.4) K/uL Desha # (Auto) (0.24-0.82) K/uL Eos # (Auto) (0-0.50) K/uL Baso # (Auto) (0-0.2) K/uL Immature Gran # (Auto) (0.00-0.02) K/uL PT (9.0-12.0) Seconds INR (0.9-1.1) Sodium (136-145) mmol/L Potassium (3.5-5.1) mmol/L Chloride (98-107) mmol/L Carbon Dioxide (21-32) mmol/L Anion Gap (3-11) BUN (6-23) mg/dl Creatinine (0.6-1.4) mg/dl Est Cr Clr Drug Dosing ml/min Est GFR ( Amer) ml/min Est GFR (Non-Af Amer) ml/min BUN/Creatinine Ratio (10-20) Glucose (70-99(Fasting)) mg/dl Lactate (0.4-2.0) mmol/L Calcium (8.5-10.1) mg/dl Magnesium (1.7-2.4) mg/dl Total Bilirubin (0.2-1.0) mg/dl Direct Bilirubin (0-0.2) mg/dl AST (13-39) U/L ALT (7-52) U/L Alkaline Phosphatase (34-104) U/L Troponin I High Sens (0-20) pg/ml Total Protein (6.0-8.3) gm/dl Albumin (3.4-5.0) gm/dl Procalcitonin (0-0.5) ng/ml Urine Color Urine Appearance (Clear) Urine pH (4.5-7.5) Ur Specific [place] (1.000-1.030) Urine Protein (Negative) Urine Glucose (UA) (Negative) Urine Ketones (Negative) Urine Blood (Negative) Urine Nitrite (Negative) Urine Bilirubin (Negative) Urine Urobilinogen (Negative) Ur Leukocyte Esterase (Negative) Urine RBC (0-4) /hpf Urine WBC (0-5) /hpf Ur Epithelial Cells (0-5) /lpf Calcium Oxalate Crystal (None Prsent) Urine Bacteria (Negative) SARS-CoV-2, RNA, NAAT NEGATIVE (NEGATIVE) Imaging Data Radiologist's Impression: Chest X-Ray 08/06/22 05:24 XR chest 1V portable HISTORY: 86 years-old Male Sepsis acute sepsis COMPARISON: CT abdomen and pelvis of same day, acute abdominal series radiographs 07/31/2022 TECHNIQUE: AP view of the chest FINDINGS: Cardiomediastinal and hilar silhouettes are within normal limits. Prior median sternotomy with cardiac valvular prosthesis. Left subclavian pacer. Hyperinflation with chronic interstitial lung disease redemonstrated. There is no pneumothorax, pleural effusion, new airspace consolidation or overt pulmonary edema. Degenerative changes of the shoulders and spine. IMPRESSION: 1. No acute processes of the chest. 2. Chronic interstitial lung disease. ACT 112: Negative or not required by law. The above report was generated using voice recognition software. It may contain grammatical, syntax or spelling errors. Electronically signed by: Rafa Jackson M.D. 08/06/2022 7:14 AM Abdomen/Pelvis CT 08/06/22 05:[address] WITH IV CONTRAST CT DOSE: 282.50 mGy.cm HISTORY: Acute generalized abdominal pain with constipation constipation, rectal pain TECHNIQUE: Multiaxial CT images of the abdomen and pelvis were performed following the IV administration of 88 cc of Optiray, A dose lowering technique was utilized adhering to the principles of ALARA. COMPARISON STUDY: CT abdomen and pelvis 06/05/2022 FINDINGS: Partially imaged pacer leads. Coronary artery calcifications. Chronic interstitial lung disease within the lung bases redemonstrated. Study is degrad ed by respiratory motion artifact. Unremarkable spleen, atrophic pancreas and left adrenal gland. Calcifications of the right adrenal gland. Cholecystectomy. Unremarkable liver. Patent portal vein. There are a few cysts noted within the kidneys measuring up to 1.9 cm on the left. No hydronephrosis. Decompressed urinary bladder with a Foreman catheter in place. Air within the bladder lumen is likely secondary to instrumentation. Urinary bladder wall thickening. Prostamegaly. Extensive atherosclerosis of the aorta and branch vessels. 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 Mild fusiform dilation of the bilateral common iliac arteries measuring up to 1.4 cm on the right and 1.8 cm on the left. No lymphadenopathy identified. No small bowel obstruction. There is moderate to extensive colonic fecal retention, most pronounced in the rectosigmoid. Distention of the rectum measures up to approximately 9 cm. Mild perirectal inflammatory stranding with decreased wall thickening compared to the prior study. Unremarkable soft tissues. Degenerative changes of the spine, pelvis and hips. IMPRESSION: 1. No bowel obstruction or pneumoperitoneum. 2. Moderate to extensive colonic fecal retention resulting in distention of the rectosigmoid. Mild associated perirectal stranding may represent a component of stercoral proctitis. 3. Chronic interstitial lung disease. 4. 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 No evidence of aneurysm rupture. 5. Additional findings as above. ACT 112: Negative or not required by law. The above report was generated using voice recognition software. It may contain grammatical, syntax or spelling errors. Electronically signed by: Rafa Jackson M.D. 08/06/2022 7:26 AM ECG Data Attestation: I personally reviewed and interpreted this ECG as follows: Indication: + abdominal pain Rate (beats per minute): 77 Rhythm: + other ECG Intervals/blocks: + IVCD and + Prolonged QT ECG [place]: + Left axis deviation ECG ST segments: + Nonspecific ST abnormalities Additional Comments: paced MDM Narrative An order was placed for continuous cardiac monitoring. The monitor shows a rate of _80__ with __paced_ rhythm. This is an 86-year-old male who presents due to concern for pain at the rectum with constipation. Patient also noted hematuria recently and in his indwelling Foreman catheter and is concerned about a wound on his sacrum. Labs drawn and s ent, and CAT scan performed. Patient did have some relief of pain with application of a protective dressing over an early sacral decubitus pressure wound that was noted on exam. No evidence of bleeding on rectal exam, and no stool lower in the rectal vault. Patient was recently disimpacted when he presented for constipation. Patient states he does take MiraLAX daily. Family bedside also states patient has had difficulty eating due to risk of aspiration and has been losing weight. Patient given milk of magnesia and a glycerin suppository to try and aid passage of stool after noting CT findings. Patient had no safe sex and continued to complain of suprapubic abdominal discomfort and rectal pain. Patient was afebrile and otherwise hemodynamically stable. Gross hematuria was noted in the catheter tubing and I suspect this is due to the patient's use of Coumadin and supratherapeutic INR. Given indwelling Foreman catheter, he was covered with antibiotics for possible evolving UTI additionally after discussion with urology. Case discussed with hospitalist for additional evaluation and management. Impression & Plan Rectal pain, Constipation, Foreman catheter in place, Decubitus ulcer of sacral area, Stercoral colitis, Acute UTI (urinary tract infection) Discharge Plan Visit Data Chief Complaint: Rectal Pain Stated Complaint: OPEN BED SORE/RECTAL BURNING/O2 ED Provider: Priscila Trujillo Discharge Problem: Rectal pain, Constipation, Foreman catheter in place, Decubitus ulcer of sacral area, Stercoral colitis, Acute UTI (urinary tract infection) Patient Disposition: Admitted As Inpatient Condition: Good Discharge Instructions Interventions: ED Discharge Assessment Last Done: 08/06/22 11:47
[2022-08-06] MEDS ORDERED: OPTIRAY 350 100ml IV ONE (06:39)
[2022-08-06 06:40] LABS: Appearance Urine Turbid (Clear); Bilirubin Urine 1+ (Negative); Blood Urine 3+ (Negative); Color Urine Red; Glucose Urine UA Negative (Negative); Ketones Urine Negative (Negative); Leukocyte Esterase Urine 1+ (Negative); Nitrite Urine Negative (Negative); Protein Urine 3+ (Negative); Specific Gravity Urine 1.025 (1.000-1.030); Urobilinogen Urine Positive (Negative)
[2022-08-06 06:42] LABS: Bacteria Urine Negative (Negative); Calcium Oxalate Crystals Urine Present (None Prsent); RBC Urine >30 /hpf (0-4); WBC Urine >30 /hpf (0-5)
--- NOTE | 2022-08-06 07:15 | XRay Report ---
XR chest 1V portable HISTORY: 86 years-old Male Sepsis acute sepsis COMPARISON: CT abdomen and pelvis of same day, acute abdominal series radiographs 07/31/2022 TECHNIQUE: AP view of the chest FINDINGS: Cardiomediastinal and hilar silhouettes are within normal limits. Prior median sternotomy with cardia c valvular prosthesis. Left subclavian pacer. Hyperinflation with chronic interstitial lung disease r edemonstrated. There is no pneumothorax, pleural effusion, new airspace consolidation or overt pulmon mj edema. Degenerative changes of the shoulders and spine. IMPRESSION: 1. No acute processes of the chest. 2. Chronic interstitial lung disease. ACT 112: Negative or not required by law. The above report was generated using voice recognition software. It may contain grammatical, syntax o r spelling errors. Electronically signed by: Rafa Jackson M.D. 08/06/2022 7:14 AM
--- NOTE | 2022-08-06 07:29 | CT Scan Report ---
ABDOMEN AND PELVIS CT WITH IV CONTRAST CT DOSE: 282.50 mGy.cm HISTORY: Acute generalized abdominal pain with constipation constipation, rectal pain TECHNIQUE: Multiaxial CT images of the abdomen and pelvis were performed following the IV administrat ion of 88 cc of Optiray, A dose lowering technique was utilized adhering to the principles of ALARA. COMPARISON STUDY: CT abdomen and pelvis 06/05/2022 FINDINGS: Partially imaged pacer leads. Coronary artery calcifications. Chronic interstitial lung disease withi n the lung bases redemonstrated. Study is degraded by respiratory motion artifact. Unremarkable splee n, atrophic pancreas and left adrenal gland. Calcifications of the right adrenal gland. Cholecystecto my. Unremarkable liver. Patent portal vein. There are a few cysts noted within the kidneys measuring up to 1.9 cm on the left. No hydronephrosis. Decompressed urinary bladder with a Foreman catheter in place. Air within the bladder lumen is likely secondary to instrumentation. Urinary bladder wall thickening. Prostamegaly. Extensive atherosclerosi s of the aorta and branch vessels. 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 Mild fusiform dilation of the bilateral common iliac arteries measuring up to 1.4 cm on the right and 1.8 cm on the left. No lymphadenopathy identified. No small bowel obstruction. There is moderate to extensive colonic fecal retention, most pronounced i n the rectosigmoid. Distention of the rectum measures up to approximately 9 cm. Mild perirectal infla mmatory stranding with decreased wall thickening compared to the prior study. Unremarkable soft tissu es. Degenerative changes of the spine, pelvis and hips. IMPRESSION: 1. No bowel obstruction or pneumoperitoneum. 2. Moderate to extensive colonic fecal retention resulting in distention of the rectosigmoid. Mild as sociated perirectal stranding may represent a component of stercoral proctitis. 3. Chronic interstitial lung disease. 4. 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 N o evidence of aneurysm rupture. 5. Additional findings as above. ACT 112: Negative or not required by law. The above report was generated using voice recognition software. It may contain grammatical, syntax o r spelling errors. Electronically signed by: Rafa Jackson M.D. 08/06/2022 7:26 AM
[2022-08-06] MEDS ORDERED: cefTRIAXone SODIUM 1,000 MG/50 ML BAG IV STA (07:57)
[2022-08-06] MEDS ORDERED: MAGNESIUM HYDROXIDE SUSP 30 ML UDC PO ONE (07:57)
[2022-08-06] MEDS ORDERED: SODIUM CHLORIDE 0.9% 500 ML IV ONE (08:02)
[2022-08-06] MEDS ORDERED: ACETAMINOPHEN 1,000 MG/100 ML VIAL IV STA (08:24)
[2022-08-06] MEDS ORDERED: GLYCERIN ADULT 12 SUPP/BOX SUPP PR ONE (08:25)
--- NOTE | 2022-08-06 10:41 | History & Physical Report ---
Date of Service August 06, 2022 Assessment & Plan (1) Stercoral colitis: Plan: Presents with severe rectal pain and severe constipation with evidence of stercoral proctitis Was recently on cough syrup with codeine which could also be contributing as well as poor p.o. intake and immobility Attempts at disimpaction in the ER on admission showed that the rectal vault was empty -Keep on clear liquids only until starts moving bowels due to severe constipation -Give bisacodyl suppository now and one hour later fleets enema if no results -Start MiraLAX every 6 hours scheduled -Start senna/docusate 1 tab p.o. twice daily -Milk of magnesia as needed -Continue to follow clinically -Pain control with Tylenol only to avoid opioids -Low magnesium replaced with IV magnesium in the ER, follow level in the morning -Follow CBC, CMP, magnesium in the morning and replete electrolytes as needed (2) Constipation: Plan: With stercoral colitis as above -Discontinuing guaifenesin with codeine which she has not taken in over a week (3) Urinary retention: Plan: continue Quinonez placed 1 week ago for urinary retention noted in the ER likely related to severe constipation Continue tamsulosin Follow-up with urology after discharge for trial of void Could be related to constipation Family request urology consultation, does have some guerrero red hematuria in the Quinonez bag and is on Coumadin (4) Hyponatremia: Plan: Sodium mildly low at 131, likely secondary to dehydration from poor p.o. intake Start gentle IV fluids with LR at 70 mL/h until p.o. intake improved -Follow BMP in the morning (5) Decubitus ulcer of sacral area: Plan: Stage II decubitus ulcer, no evidence of infection on examination Wound care consult, offload pressure, OPTi foam (6) Low BMI: Plan: BMI quite low at 16.4 Could be secondary to chronic dysphagia and issues with swallowing as well as chronic lung disease Nutrition consult will likely be reflexive -Add multivitamin and thiamine (7) SSS (sick sinus syndrome): Plan: Status post PPM Follows with Dr. Echevarria of electrophysiology (8) IPF (idiopathic pulmonary fibrosis): Plan: Chronic, recently completed antibiotics and steroid taper Continue home oxygen Follow with pulmonology Recently saw palliative medicine with Bette as an outpatient and does not want to pursue hospice at this time (9) Swallowing dysfunction: Plan: With video swallow from 03/2021 shows severe profound pharyngeal stage dysphagia with no functional swallowing no airway protection with shannon aspiration of all liquids. Recommendations are for liquids and thin pures, avoid large pills, no soft bread or pieces of meat, aspiration precautions, and outpatient speech therapy at that time with consideration for PEG tube (10) CAD (coronary artery disease): Plan: S/p 1 vessel CABG at the time of his AVR Continue home metoprolol, Coumadin, but no longer on atorvastatin Not on aspirin presumably due to being on Coumadin (11) Anemia: Plan: Hemoglobin at baseline at 11, macrocytic Check B12 and folate in the morning, iron studies Follow CBC (12) S/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: Plan: Noted, most recent echocardiogram in 06/2021 shows valve is working well (13) Paroxysmal A-fib: Plan: In a V paced rhythm here. Recent cardiology notes show that he has not had any A. fib for several years on pacer interrogation On Coumadin but INR slightly supratherapeutic Hold Coumadin for today and likely restart tomorrow, follow INR in the morning With history of aortic valve replacement No need to monitor on telemetry (14) Hyperlipidemia: Plan: No longer on atorvastatin presumably due to low BMI and advanced age and comorbidities (15) HTN (hypertension): Plan: Blood pressures are controlled Continue home metoprolol (16) AAA (abdominal aortic aneurysm): Plan: Noted incidentally on CT abdomen/pelvis-infrarenal 4.6 cm unchanged from previous no evidence of rupture Follow as an outpatient (17) Chronic respiratory failure with hypoxia: Plan: Continue home for LNC O2 for idiopathic pulmonary fibrosis (18) Leukocytosis: Plan: WBC count elevated at 12-secondary to recent completion of prednisone taper Do not suspect infection Could be somewhat elevated due to stercoral colitis but no antibiotics indicated Urinalysis not consistent with infection-given 1 dose of ceftriaxone in the ER but no further antibiotics to be given Follow CBC Plan DVT prophylaxis-Coumadin Disposition-admit to medical/surgical unit DNR/DNI as discussed with patient with his 2 sons at the bedside History of Present Illness Chief Complaint: Rectal pain Primary Care Provider: Benoit Stauffer MD This patient is an 86-year-old male with history of idiopathic pulmonary fibrosis on chronic oxygen, recent COVID-19 infection and pneumomediastinum, HTN, paroxysmal atrial fibrillation on Coumadin, aortic valve replacement, CAD s/p CABG, oropharyngeal dysphagia, hyperlipidemia, gout who presents to the ER with rectal pain. He has been struggling with constipation since his last discharge and was seen in the ER on 07/31 for the same thing and had a rectal disimpaction performed by the ER doctor. He has not really had much of a bowel movement at all since that time. He was also retaining urine and had a Quinonez catheter placed at that time. He did recently finish antibiotics and a prednisone taper since his recent hospitalization. He was also on guaifenesin with codeine during that hospitalization and this was prescribed on discharge which he reports he took for about a week. He has been using a fiber daily no other laxatives in the meantime. He denies any nausea or vomiting. Only having mild lower abdominal pain and a burning sensation in the rectum. He is also been dealing with the recently opened sacral wound which is painful. In the ER, he initially was hypotensive and was brought back for septic work-up which turned out to only show a possible UTI. He was given IV fluids and his blood pressures improved and remained that way. He did not have a fever. His CT of the abdomen/pelvis did show moderate to extensive colonic fecal retention most pronounced in the rectosigmoid colon with distention of the rectum up to 9 cm and mild perirectal inflammatory stranding consistent with stercoral colitis. His WBC count was mildly elevated at 12 likely secondary to recent prednisone taper. He was given a glycerin suppository, IV Tylenol for pain, ceftriaxone for the UTI, a dose of milk of magnesia, and 1.5 L of normal saline. He did not have a bowel movement yet in the ER and continued to have pain. As per ER physician report, he had no stool in the rectal vault when suppository was placed. He will be admitted for severe constipation and stercoral colitis. Allergies Allergy/AdvReac Type Severity Reaction Status Date / Time No Known Allergies Allergy Verified 07/31/22 16:40 Home Medications Medication Instructions Recorded Confirmed Type Oxygen Home #4 L 06/12/22 08/06/22 Rx Portable Oxygen #1 ea 06/12/22 08/06/22 Rx metoprolol succinate 50 mg 25 mg PO QAM #90 tabs 06/23/22 08/06/22 Rx tablet,extended release 24 hr Oxygen Home #4 L 07/19/22 08/06/22 Rx warfarin 3 mg tablet See Rx Instructions .Route .COMPLEX 07/31/22 08/06/22 History guar gum 1 gram tablet 1 g PO DAILY 08/06/22 08/06/22 History tamsulosin 0.4 mg capsule 0.4 mg PO HS 08/06/22 08/06/22 History Past Med/Surg History Medical History (Updated 08/06/22 @ 11:11 by Priya Rose MD) AAA (abdominal aortic aneurysm) Acute exacerbation of idiopathic pulmonary fibrosis Anemia Anticoagulant long-term use Chronic respiratory failure with hypoxia Elevated prostate specific antigen (PSA) Hearing loss High serum ferritin HTN (hypertension) Hyperlipidemia Hypoxemia Hypoxemia Interstitial lung disease IPF (idiopathic pulmonary fibrosis) Low BMI Mediastinal adenopathy Multiple lung nodules on CT Pacemaker Paroxysmal A-fib Paroxysmal ventricular tachycardia Subdural hematoma (01/2019) Surgical History Hx of cholecystectomy Hx of tonsillectomy 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) S/P craniotomy (01/2019) Family History Father Lung cancer Sister Breast cancer Unknown Hypertension Other Anticoagulant long-term use Family history non-contributory Hyperlipidemia Pacemaker Denies family history of Colon cancer Ovarian cancer Prostate cancer Myocardial infarction Social History Smoking Status: Former smoker Tobacco Type: Cigarettes Age Quit Using Tobacco: 41; packs per day: 0.25; Years Smoked: 4; Cigarettes Per Day: 1/4 of a pack; Number of Years Since Quit: 45; Second Hand Exposure: Yes; Hx Alcohol Use: No Hx Substance Use: No Preferred Language: Hebrew Communication Ability: Effective Visual Impairment: No Limitations Hearing Ability: Normal Lean Consultant Required: No Beliefs That Will Affect Care: None marital status: Current Living Situation: Alone current occupational status: retired Feels Safe at Home: Yes Childhood Exposure to Second-Hand Smoke: Yes Dental Care, Regularly: Yes Physical Activity Frequency: Does not Exercise Seatbelt Use: always Sunscreen Use: No Assistive Devices: Cane, Crutches, Walker and Wheelchair Review of Systems Review of Systems: All systems reviewed & are unremarkable except as noted in HPI & below He has been having some blood in his Quinonez bag recently but urine is draining No fevers or chills No headaches or lightheadedness, no chest pain or shortness of breath over his usual Physical Exam Constitutional: WD/WN, vitals as above Eyes: PERRL, conjunctivae normal, anicteric sclerae ENMT: external ear and nose normal, oropharynx normal Neck: trachea midline, no thyromegaly Respiratory: normal respiratory effort; no cough Auscultation: + crackles (Bilateral lower and middle lung willis); no rhonchi and no wheezes Cardiovascular: RRR, no murmur, no edema Chest (Breasts): Chest: + pacemaker (Left anterior chest wall) Gastrointestinal (Abdomen): Inspection/Auscultation: normal bowel sounds and + scaphoid; + abdomen abnormal to inspection (Scaphoid appearance) and abdomen not distended Percussion/Palpation: + abdomen tender (Mild in the left lower quadrant without guarding or rebound) and abdomen soft; no hernia Musculoskeletal: Extremities: extremities normal to inspection; no cyanosis and no clubbing Skin: no rashes, warm and dry + ulcer (Small 1 cm gluteal cleft ulcer stage II) Neurologic: moves all extremities and awake; no focal motor deficits Psychiatric: A+Ox3, euthymic affect Genitourinary: no testicular masses, no penis abnormality (Quinonez catheter in place with scant dried blood around the meatus) Guerrero red blood in Quinonez bag Lymphatic: no lymphedema Results & Data Results & Data ([facility]) Vital Signs (Past 12 Hours) Vital Signs Temp Pulse Pulse Resp BP BP Pulse Ox 08/06/22 09:54 70 105/60 100 08/06/22 09:25 67 101/55 L 100 08/06/22 08:13 71 100 08/06/22 07:51 75 111/73 100 08/06/22 07:40 64 116/62 100 08/06/22 07:25 67 18 106/62 100 08/06/22 07:06 65 16 126/70 100 08/06/22 06:45 75 22 125/71 100 08/06/22 05:56 70 20 108/56 L 100 08/06/22 05:26 100 08/06/22 05:21 36.4 C 79 22 114/66 97 08/06/22 05:04 36.8 C 91 H 18 67/49 L 93 O2 Del Method O2 Flow Rate 08/06/22 09:54 Nasal Cannula 3 08/06/22 09:25 Nasal Cannula 3 08/06/22 08:13 Room Air 08/06/22 07:51 Room Air 08/06/22 07:40 08/06/22 07:25 08/06/22 07:06 Room Air 08/06/22 06:45 Nasal Cannula 4 08/06/22 05:56 Nasal Cannula 4 08/06/22 05:26 Nasal Cannula 4 08/06/22 05:21 Nasal Cannula 4 08/06/22 05:04 Nasal Cannula 4 Laboratory Results 08/06/22 08/06/22 08/06/22 Range/Units 10:35 05:30 05:20 WBC (4.8-10.8) K/ul RBC (4.63-6.08) M/uL Hgb (14.0-18.0) g/dl Hct (40.1-51.0) % MCV (80.0-100.0) fL MCH (25.0-34.0) pg MCHC (32.0-36.0) g/dL RDW Std Deviation (36.4-46.3) fL RDW Coeff of Jill (11.5-14.5) % Plt Count (130-400) K/uL MPV (9.4-12.4) fL Immature Gran % (Auto) % Neut % (Auto) % Lymph % (Auto) % [place] % (Auto) % Eos % (Auto) % Baso % (Auto) % Neut # (Auto) (1.4-6.5) K/uL Lymph # (Auto) (1.2-3.4) K/uL [place] # (Auto) (0.24-0.82) K/uL Eos # (Auto) (0-0.50) K/uL Baso # (Auto) (0-0.2) K/uL Immature Gran # (Auto) (0.00-0.02) K/uL PT 38.2 H (9.0-12.0) Seconds INR 3.9 H (0.9-1.1) Sodium (136-145) mmol/L Potassium (3.5-5.1) mmol/L Chloride (98-107) mmol/L Carbon Dioxide (21-32) mmol/L Anion Gap (3-11) BUN (6-23) mg/dl Creatinine (0.6-1.4) mg/dl Est Cr Clr Drug Dosing ml/min Est GFR ( Amer) ml/min Est GFR (Non-Af Amer) ml/min BUN/Creatinine Ratio (10-20) Glucose (70-99(Fasting)) mg/dl Lactate (0.4-2.0) mmol/L Calcium (8.5-10.1) mg/dl Magnesium (1.7-2.4) mg/dl Total Bilirubin (0.2-1.0) mg/dl Direct Bilirubin (0-0.2) mg/dl AST (13-39) U/L ALT (7-52) U/L Alkaline Phosphatase (34-104) U/L Troponin I High Sens (0-20) pg/ml Total Protein (6.0-8.3) gm/dl Albumin (3.4-5.0) gm/dl Procalcitonin (0-0.5) ng/ml Urine Color Red Urine Appearance Turbid A (Clear) Urine pH 6.0 (4.5-7.5) Ur Specific Harvey 1.025 (1.000-1.030) Urine Protein 3+ H (Negative) Urine Glucose (UA) Negative (Negative) Urine Ketones Negative (Negative) Urine Blood 3+ H (Negative) Urine Nitrite Negative (Negative) Urine Bilirubin 1+ H (Negative) Urine Urobilinogen Positive H (Negative) Ur Leukocyte Esterase 1+ H (Negative) Urine RBC >30 H (0-4) /hpf Urine WBC >30 H (0-5) /hpf Ur Epithelial Cells 5-10 H (0-5) /lpf Calcium Oxalate Crystal Present A (None Prsent) Urine Bacteria Negative (Negative) SARS-CoV-2, RNA, NAAT Pending 08/06/22 08/06/22 08/06/22 Range/Units 05:20 05:20 05:20 WBC (4.8-10.8) K/ul RBC (4.63-6.08) M/uL Hgb (14.0-18.0) g/dl Hct (40.1-51.0) % MCV (80.0-100.0) fL MCH (25.0-34.0) pg MCHC (32.0-36.0) g/dL RDW Std Deviation (36.4-46.3) fL RDW Coeff of Jill (11.5-14.5) % Plt Count (130-400) K/uL MPV (9.4-12.4) fL Immature Gran % (Auto) % Neut % (Auto) % Lymph % (Auto) % [place] % (Auto) % Eos % (Auto) % Baso % (Auto) % Neut # (Auto) (1.4-6.5) K/uL Lymph # (Auto) (1.2-3.4) K/uL [place] # (Auto) (0.24-0.82) K/uL Eos # (Auto) (0-0.50) K/uL Baso # (Auto) (0-0.2) K/uL Immature Gran # (Auto) (0.00-0.02) K/uL PT (9.0-12.0) Seconds INR (0.9-1.1) Sodium 131 L (136-145) mmol/L Potassium 3.5 (3.5-5.1) mmol/L Chloride 95 L (98-107) mmol/L Carbon Dioxide 30 (21-32) mmol/L Anion Gap 6 (3-11) BUN 20 (6-23) mg/dl Creatinine 0.61 (0.6-1.4) mg/dl Est Cr Clr Drug Dosing 62.5 ml/min Est GFR ( Amer) 106.3 ml/min Est GFR (Non-Af Amer) 91.7 ml/min BUN/Creatinine Ratio 32.8 H (10-20) Glucose 149 H (70-99(Fasting)) mg/dl Lactate 2.0 (0.4-2.0) mmol/L Calcium 9.4 (8.5-10.1) mg/dl Magnesium 1.6 L (1.7-2.4) mg/dl Total Bilirubin 1.9 H (0.2-1.0) mg/dl Direct Bilirubin 0.4 H (0-0.2) mg/dl AST 19 (13-39) U/L ALT 17 (7-52) U/L Alkaline Phosphatase 88 (34-104) U/L Troponin I High Sens 12.5 D (0-20) pg/ml Total Protein 6.8 (6.0-8.3) gm/dl Albumin 3.6 (3.4-5.0) gm/dl Procalcitonin < 0.05 (0-0.5) ng/ml Urine Color Urine Appearance (Clear) Urine pH (4.5-7.5) Ur Specific Harvey (1.000-1.030) Urine Protein (Negative) Urine Glucose (UA) (Negative) Urine Ketones (Negative) Urine Blood (Negative) Urine Nitrite (Negative) Urine Bilirubin (Negative) Urine Urobilinogen (Negative) Ur Leukocyte Esterase (Negative) Urine RBC (0-4) /hpf Urine WBC (0-5) /hpf Ur Epithelial Cells (0-5) /lpf Calcium Oxalate Crystal (None Prsent) Urine Bacteria (Negative) SARS-CoV-2, RNA, NAAT 08/06/22 Range/Units 05:20 WBC 12.41 H (4.8-10.8) K/ul RBC 3.30 L (4.63-6.08) M/uL Hgb 11.1 L (14.0-18.0) g/dl Hct 33.0 L (40.1-51.0) % MCV 100.0 (80.0-100.0) fL MCH 33.6 (25.0-34.0) pg MCHC 33.6 (32.0-36.0) g/dL RDW Std Deviation 54.1 H (36.4-46.3) fL RDW Coeff of Jill 14.6 H (11.5-14.5) % Plt Count 160 (130-400) K/uL MPV 10.6 (9.4-12.4) fL Immature Gran % (Auto) 2.3 % Neut % (Auto) 78.3 % Lymph % (Auto) 13.2 % [place] % (Auto) 5.2 % Eos % (Auto) 0.8 % Baso % (Auto) 0.2 % Neut # (Auto) 9.73 H (1.4-6.5) K/uL Lymph # (Auto) 1.64 (1.2-3.4) K/uL [place] # (Auto) 0.64 (0.24-0.82) K/uL Eos # (Auto) 0.10 (0-0.50) K/uL Baso # (Auto) 0.02 (0-0.2) K/uL Immature Gran # (Auto) 0.28 H (0.00-0.02) K/uL PT (9.0-12.0) Seconds INR (0.9-1.1) Sodium (136-145) mmol/L Potassium (3.5-5.1) mmol/L Chloride (98-107) mmol/L Carbon Dioxide (21-32) mmol/L Anion Gap (3-11) BUN (6-23) mg/dl Creatinine (0.6-1.4) mg/dl Est Cr Clr Drug Dosing ml/min Est GFR ( Amer) ml/min Est GFR (Non-Af Amer) ml/min BUN/Creatinine Ratio (10-20) Glucose (70-99(Fasting)) mg/dl Lactate (0.4-2.0) mmol/L Calcium (8.5-10.1) mg/dl Magnesium (1.7-2.4) mg/dl Total Bilirubin (0.2-1.0) mg/dl Direct Bilirubin (0-0.2) mg/dl AST (13-39) U/L ALT (7-52) U/L Alkaline Phosphatase (34-104) U/L Troponin I High Sens (0-20) pg/ml Total Protein (6.0-8.3) gm/dl Albumin (3.4-5.0) gm/dl Procalcitonin (0-0.5) ng/ml Urine Color Urine Appearance (Clear) Urine pH (4.5-7.5) Ur Specific [place] (1.000-1.030) Urine Protein (Negative) Urine Glucose (UA) (Negative) Urine Ketones (Negative) Urine Blood (Negative) Urine Nitrite (Negative) Urine Bilirubin (Negative) Urine Urobilinogen (Negative) Ur Leukocyte Esterase (Negative) Urine RBC (0-4) /hpf Urine WBC (0-5) /hpf Ur Epithelial Cells (0-5) /lpf Calcium Oxalate Crystal (None Prsent) Urine Bacteria (Negative) SARS-CoV-2, RNA, NAAT Diagnostic Findings I personally reviewed the chest x-ray and CT abd/pel images and agree with following reports: Chest X-Ray 08/06/22 05:24 XR chest 1V portable HISTORY: 86 years-old Male Sepsis acute sepsis COMPARISON: CT abdomen and pelvis of same day, acute abdominal series radiographs 07/31/2022 TECHNIQUE: AP view of the chest FINDINGS: Cardiomediastinal and hilar silhouettes are within normal limits. Prior median sternotomy with cardiac valvular prosthesis. Left subclavian pacer. Hyperinflation with chronic interstitial lung disease redemonstrated. There is no pneumothorax, pleural effusion, new airspace consolidation or overt pulmonary edema. Degenerative changes of the shoulders and spine. IMPRESSION: 1. No acute processes of the chest. 2. Chronic interstitial lung disease. ACT 112: Negative or not required by law. The above report was generated using voice recognition software. It may contain grammatical, syntax or spelling errors. Electronically signed by: Rafa Jackson M.D. 08/06/2022 7:14 AM Abdomen/Pelvis CT 08/06/22 05:[address] WITH IV CONTRAST CT DOSE: 282.50 mGy.cm HISTORY: Acute generalized abdominal pain with constipation constipation, rectal pain TECHNIQUE: Multiaxial CT images of the abdomen and pelvis were performed following the IV administration of 88 cc of Optiray, A dose lowering technique was utilized adhering to the principles of ALARA. COMPARISON STUDY: CT abdomen and pelvis 06/05/2022 FINDINGS: Partially imaged pacer leads. Coronary artery calcifications. Chronic interstitial lung disease within the lung bases redemonstrated. Study is degraded by respiratory motion artifact. Unremarkable spleen, atrophic pancreas and left adrenal gland. Calcifications of the right adrenal gland. Cholecystecto my. Unremarkable liver. Patent portal vein. There are a few cysts noted within the kidneys measuring up to 1.9 cm on the left. No hydronephrosis. Decompressed urinary bladder with a Quinonez catheter in place. Air within the bladder lumen is likely secondary to instrumentation. Urinary bladder wall thickening. Prostamegaly. Extensive atherosclerosis of the aorta and branch vessels. Saccular infrarenal aneurysm dilation of the abdominal aorta redemonstrated without evidence of rupture measuring 4.4 x 4.6 cm. Mild fusiform dilation of the bilateral common iliac arteries measuring up to 1.4 cm on the right and 1.8 cm on the left. No lymphadenopathy identified. No small bowel obstruction. There is moderate to extensive colonic fecal retention, most pronounced in the rectosigmoid. Distention of the rectum measures up to approximately 9 cm. Mild perirectal inflammatory stranding with decreased wall thickening compared to the prior study. Unremarkable soft tissues. Degenerative changes of the spine, pelvis and hips. IMPRESSION: 1. No bowel obstruction or pneumoperitoneum. 2. Moderate to extensive colonic fecal retention resulting in distention of the rectosigmoid. Mild associated perirectal stranding may represent a component of stercoral proctitis. 3. Chronic interstitial lung disease. 4. 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 No evidence of aneurysm rupture. 5. Additional findings as above. ACT 112: Negative or not required by law. The above report was generated using voice recognition software. It may contain grammatical, syntax or spelling errors. Electronically signed by: Rafa Jackson M.D. 08/06/2022 7:26 AM ECG Additional Comments: ECG on 08/06/22 with V-paced rhythm Code Status & VTE Plan Code Status DNR/DNI VTE Prophylaxis Plan VTE Prophylaxis will be ordered: Yes PG Care Time/CCT Total # of Minutes Spent Total Time Spent with Patient: Total time spent is greater than 50% in coordination of care (as documented) at patient's floor/unit and/or counseling patient: Coding Level of Care Code 26886 Initial Inpt Care Lvl 3 Diagnoses Stercoral colitis K52.89 Constipation K59.00 Constipation type: unspecified constipation type Urinary retention R33.9 Hyponatremia E87.1 Decubitus ulcer of sacral area L89.159 Low BMI SSS (sick sinus syndrome) I49.5 IPF (idiopathic pulmonary fibrosis) J84.112 Swallowing dysfunction R13.10 CAD (coronary artery disease) I25.10 Associated angina: without angina Coronary Disease-Associated Artery/Lesion type: [place] artery [place] vs. transplanted heart: [place] heart Anemia D64.9 S/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 Z95.4 Paroxysmal A-fib I48.0 Hyperlipidemia E78.5 HTN (hypertension) I10 AAA (abdominal aortic aneurysm) I71.40 Chronic respiratory failure with hypoxia J96.11 Leukocytosis D72.829 (1) CAD (coronary artery disease) Associated angina: without angina Coronary Disease-Associated Artery/Lesion type: [place] artery [place] vs. transplanted heart: [place] heart Qualified Code(s): I25.10 - Atherosclerotic heart disease of [place] coronary artery without angina pectoris (2) Constipation Constipation type: unspecified constipation type Qualified Code(s): K59.00 - Constipation, unspecified
--- NOTE | 2022-08-06 13:06 | Urology Consultation ---
Date of Consultation August 06, 2022 Assessment & Plan (1) Urinary retention: (2) Foreman catheter in place: (3) Hematuria: Plan 86 year old male with multiple comorbidities admitted for severe constipation and stercoral proctitis. Urology consulted for urinary retention, Foreman catheter and hematuria. Patient was pending outpatient evaluation with our service today with voiding trial. Urinary retention currently managed with Foreman catheter. UR likely multifactorial including enlarged prostate, severe constipation, deconditioning. CTAP reviewed and notable for constipation and stercoral proctitis. Additionally showed small bilateral renal cysts, enlarged prostate, no hydronephrosis, and Foreman catheter in place. Creatinine normal. Given acute constipation, recommend aggressive bowel regimen to normalize bowels. Recommend continue with Foreman catheter until acute constipation is resolved. Hematuria is likely secondary to enlarged prostate, UR, catheterization, supratherapeutic INR and possible UTI. Foreman catheter intact and draining light akhtar red urine, no clots. Urinalysis today showed 1+ leukocyte esterase, >30 RBCs, >30 WBCs. He was treated with IV Ceftriaxone in ED. Urine and blood cultures are pending. Follow cultures. His UA on 07/31 prior to catheterization showed 0-4 RBCs. Defer anticoagulation to primary team. - Continue Tamsulosin. - Continue supportive care and management per primary service. - Maintain Foreman catheter at this time and likely until bowel function improves or outpatient follow-up with urology. - Okay to gently hand irrigate prn clot retention or suprapubic pain. - Plan to reschedule outpatient follow-up with urology for catheter removal and further work-up with possible cystoscopy. - He has history of elevated PSA in the past. Per chart review, last PSA was 14.1 on 11/30/2011. Will plan to repeat as an outpatient. - will sign off. History of Present Illness Reason for Consultation: urinary retention, Foreman, hematuria Requesting Physician: Dr. Rose Attending Physician: Priya Rose MD History of Present Illness This is an 86 year old male with past medical history of idiopathic pulmonary fibrosis on chronic oxygen, recent COVID-19 infection and pneumomediastinum, HTN, hyperlipidemia, paroxysmal atrial fibrillation on Coumadin, aortic valve replacement, SSS, pacemaker, CAD s/p CABG, and oropharyngeal dysphagia who presented to the emergency department today with rectal pain, constipation, and sacral wound. Of note, he has struggled with constipation since his recent hospitalizations. He was seen in our ED on 07/31 for constipation requiring disimpaction and a Foreman catheter was placed due to urinary retention. He was scheduled for outpatient urology evaluation today and voiding trial. On arrival today, he was afebrile but hypotensive. Lab work and imaging reviewed. CBC showed mild leukocytosis of 12.41, Hgb 11.1. His chemistry was notable for sodium of 131, creatinine was normal. Lactate 2.0. INR supratherapeutic at 3.9. He is on warfarin for paroxysmal atrial fibrillation and an aortic valve replacement. Urinalysis notable for 3+ blood, 1+ leukocyte esterase; microscopy noted >30 RBCs, >30 WBCs, 5-10 Epithelials, and calcium oxalate crystals. He underwent CT A/P with IV contrast which noted moderate to extensive colonic fecal retention most pronounced in the rectosigmoid colon and mild perirectal inflammatory stranding consistent with stercoral proctitis. Bilateral renal cysts, largest 1.9 cm on left. No hydronephrosis, bladder decompressed with a Foreman catheter, and prostatomegaly noted. ER course included a glycerin suppository, Tylenol, Ceftriaxone, a dose of milk of magnesia, IV fluids. He was admitted to the hospital medicine service for severe constipation and stercoral proctitis. Urology consulted for urinary retention, Foreman, hematuria. Patient seen and examined at bedside. He is awake and resting in bed, appears comfortable. He denies BM since arrival. Reports rectal burning/pain. No abdominal pain, nausea or vomiting. No flank pain or suprapubic pain. He is tolerating Foreman catheter. Foreman is intact, patent and draining light akhtar red urine, no clots noted at present. He notes hematuria started about 4 days ago. Denies prior hematuria. No fever or chills. Baseline urinary symptoms include nocturia x 2-3, some urgency, no incontinence, and feels that he emptied his bladder pretty well until he developed difficulty last week. No known family history of malignancy. Former smoker - quit 45 years ago. Per chart review, last PSA was 14.1 on 11/30/2011. Allergies Allergy/AdvReac Type Severity Reaction Status Date / Time No Known Allergies Allergy Verified 07/31/22 16:40 Home Medications Medication Instructions Recorded Confirmed Type Oxygen Home #4 L 06/12/22 08/06/22 Rx Portable Oxygen #1 ea 06/12/22 08/06/22 Rx metoprolol succinate 50 mg 25 mg PO QAM #90 tabs 06/23/22 08/06/22 Rx tablet,extended release 24 hr Oxygen Home #4 L 07/19/22 08/06/22 Rx warfarin 3 mg tablet See Rx Instructions .Route .COMPLEX 07/31/22 08/06/22 History guar gum 1 gram tablet 1 g PO DAILY 08/06/22 08/06/22 History tamsulosin 0.4 mg capsule 0.4 mg PO HS 08/06/22 08/06/22 History Patient History Medical History AAA (abdominal aortic aneurysm) Acute exacerbation of idiopathic pulmonary fibrosis Anemia Anticoagulant long-term use Chronic respiratory failure with hypoxia Elevated prostate specific antigen (PSA) Hearing loss High serum ferritin HTN (hypertension) Hyperlipidemia Hypoxemia Hypoxemia Interstitial lung disease IPF (idiopathic pulmonary fibrosis) Low BMI Mediastinal adenopathy Multiple lung nodules on CT Pacemaker Paroxysmal A-fib Paroxysmal ventricular tachycardia Subdural hematoma (01/2019) Surgical History Hx of cholecystectomy Hx of tonsillectomy 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) S/P craniotomy (01/2019) Family History Father Lung cancer Sister Breast cancer Unknown Hypertension Other Anticoagulant long-term use Family history non-contributory Hyperlipidemia Pacemaker Denies family history of Colon cancer Ovarian cancer Prostate cancer Myocardial infarction Social History Smoking Status: Former smoker Tobacco Type: Cigarettes Age Quit Using Tobacco: 41; packs per day: 0.25; Years Smoked: 4; Cigarettes Per Day: 1/4 of a pack; Number of Years Since Quit: 45; Second Hand Exposure: No; Do You Dip or Chew Tobacco: No; Tobacco Cessation Education Requested by Patient: No Hx Alcohol Use: Yes Alcohol type: hard liquor Alcohol Intake Frequency Comment: 1-2 per day Hx Substance Use: No Preferred Language: [place] Communication Ability: Effective Visual Impairment: No Limitations Hearing Ability: Normal Sprayer Machine Required: No Beliefs That Will Affect Care: None marital status: Current Living Situation: Alone current occupational status: retired Other Information That Helps Us Care for You: No Feels Safe at Home: Yes Safety Concerns: Feels Safe At This Time Childhood Exposure to Second-Hand Smoke: Yes Dental Care, Regularly: Yes Physical Activity Frequency: Does not Exercise Seatbelt Use: always Sunscreen Use: No Assistive Devices: Cane, Crutches, Walker and Wheelchair Review of Systems Review of Systems: All systems reviewed & are unremarkable except as noted in HPI & below Physical Exam Constitutional: + thin; no acute distress Eyes: no scleral abnormality Neck: trachea midline Respiratory: no respiratory distress and no labored breathing oxygen via nasal cannula Cardiovascular: Extremities: no pedal edema Gastrointestinal (Abdomen): Inspection/Auscultation: abdomen normal to inspection; abdomen not distended Percussion/Palpation: abdomen soft; abdomen nontender and no guarding Musculoskeletal: Head/Neck/Chest: normocephalic and head atraumatic Skin: no visible rashes Neurologic: moves all extremities and awake Psychiatric: Orientation: alert and oriented x 3 Genitourinary: Foreman intact, patent and draining light akhtar red urine, no clots noted Results & Data ([facility]) Vital Signs (Past 12 Hours) Vital Signs Temp Pulse Pulse Resp BP BP Pulse Ox 08/06/22 11:38 73 74 H 104/56 L 100 08/06/22 10:36 70 105/58 L 100 08/06/22 09:54 70 105/60 100 08/06/22 09:25 67 101/55 L 100 08/06/22 08:13 71 100 08/06/22 07:51 75 111/73 100 08/06/22 07:40 64 116/62 100 08/06/22 07:25 67 18 106/62 100 08/06/22 07:06 65 16 126/70 100 08/06/22 06:45 75 22 125/71 100 08/06/22 05:56 70 20 108/56 L 100 08/06/22 05:26 100 08/06/22 05:21 36.4 C 79 22 114/66 97 08/06/22 05:04 36.8 C 91 H 18 67/49 L 93 O2 Del Method O2 Flow Rate 08/06/22 11:38 Nasal Cannula 3 08/06/22 10:36 Nasal Cannula 3 08/06/22 09:54 Nasal Cannula 3 08/06/22 09:25 Nasal Cannula 3 08/06/22 08:13 Room Air 08/06/22 07:51 Room Air 08/06/22 07:40 08/06/22 07:25 08/06/22 07:06 Room Air 08/06/22 06:45 Nasal Cannula 4 08/06/22 05:56 Nasal Cannula 4 08/06/22 05:26 Nasal Cannula 4 08/06/22 05:21 Nasal Cannula 4 08/06/22 05:04 Nasal Cannula 4 PG Care Time/CCT Total # of Minutes Spent Total Time Spent with Patient: Total time spent is greater than 50% in coordination of care (as documented) at patient's floor/unit and/or counseling patient: Coding Level of Care Code 29537 Initial Inpt Care Lvl 2 Diagnoses Urinary retention R33.[address] Z97.8 Hematuria R31.9
[2022-08-06] MEDS ORDERED: ACETAMINOPHEN 325 MG TAB PO PRN (13:12)
[2022-08-06] MEDS ORDERED: SOD PHOSPHATE/SOD BIPHOSPHATE ENEMA 132 ML BTL PR STA (13:12)
[2022-08-06] MEDS ORDERED: bisacodyL 10 MG SUPP PR STA (13:12)
[2022-08-06] MEDS ORDERED: MAGNESIUM HYDROXIDE SUSP 30 ML UDC PO PRN (13:12)
[2022-08-06] MEDS ORDERED: ONDANSETRON INJ 2 MG/ML 2 ML VIAL IV PRN (13:12)
[2022-08-06] MEDS: LACTATED RINGER'S 1,000 ML IV SCH ×2 (13:42→21:54)
[2022-08-06] MEDS: DOCUSATE SODIUM/SENNA 50/8.6MG TAB PO SCH ×2 (15:46→23:41)
[2022-08-06] MEDS: POLYETHYLENE (MIRALAX) 17 GM PACK PO SCH ×2 (15:46→23:42)
[2022-08-06] MEDS ORDERED: Flu Vaccine-High Dose (Fluzone-HD) PF 65+ 0.7mL SYR IM ONE (16:15)
[2022-08-06] MEDS ORDERED: SOD PHOSPHATE/SOD BIPHOSPHATE ENEMA 132 ML BTL PR ONE (22:20)
[2022-08-06] MEDS: TAMSULOSIN HCL 0.4 MG CAP PO SCH (23:41)
--- NOTE | 2022-08-07 02:20 | Communication Note ---
Date of Service: August 07, 2022 ordering soap suds enema at patient request. he had received sodium phosphate enema 4.5 hours ago. disscussed w/ pharmacy. ok to use 3AM: patient requesting nurse to disimpact. informed nurse that this should be done by physician. Deferring to dayshift.
[2022-08-07] MEDS: POLYETHYLENE (MIRALAX) 17 GM PACK PO SCH ×4 (02:48→20:09)
--- NOTE | 2022-08-07 05:19 | Electrocardiogram Report ---
Test Reason : Blood Pressure : / mmHG Vent. Rate : 077 BPM Atrial Rate : 077 BPM P-R Int : 000 ms QRS Dur : 156 ms QT Int : 456 ms P-R-T Axes : 090 -83 087 degrees QTc Int : 516 ms Poor data quality, interpretation may be adversely affected Atrial-sensed ventricular-paced rhythm Abnormal ECG When compared with ECG of 31-JUL-2022 11:32, Vent. rate has decreased BY 3 BPM Confirmed by Gabino Padgett ([id number]) on 08/07/2022 5:19:22 AM Referred By: REFERRED SELF Confirmed By:Gabino Padgett
[2022-08-07 06:34] LABS: Basophils # (auto) 0.01 K/uL (0-0.2); Basophils % (auto) 0.1 %; Eosinophils # (auto) 0.04 K/uL (0-0.50); Eosinophils % (auto) 0.4 %; Hemoglobin 9.6 g/dl (14.0-18.0); Immature Granulocytes # (auto) 0.12 K/uL (0.00-0.02); Immature Granulocytes % (auto) 1.3 %; Lymphocytes # (auto) 0.61 K/uL (1.2-3.4); Lymphocytes % (auto) 6.7 %; Mean Corpuscular Hemoglobin 33.7 pg (25.0-34.0); Mean Corpuscular Hgb Conc 34.3 g/dL (32.0-36.0); Mean Corpuscular Volume 98.2 fL (80.0-100.0); Mean Platelet Volume 10.3 fL (9.4-12.4); Monocytes # (auto) 0.32 K/uL (0.24-0.82); Monocytes % (auto) 3.5 %; Neutrophils # (auto) 8.07 K/uL (1.4-6.5); Platelet Count 125 K/uL (130-400); RDW Coefficient of Variation 14.6 % (11.5-14.5); RDW Standard Deviation 52.9 fL (36.4-46.3); Red Blood Count 2.85 M/uL (4.63-6.08); White Blood Count 9.17 K/ul (4.8-10.8)
[2022-08-07 07:05] LABS: Albumin Globulin Ratio 1.1 (0.9-2); Albumin Level 2.9 gm/dl (3.4-5.0); BUN Creatinine Ratio 26.7 (10-20); Bilirubin,Total 1.6 mg/dl (0.2-1.0); Calcium 8.3 mg/dl (8.5-10.1); Creatinine Clr Calc Pharmacy 84.7 ml/min; Est GFR (African American) 120.4 ml/min; Est GFR (Non-African American) 103.9 ml/min; Globulin 2.7 gm/dl (2.5-4.0); Magnesium 1.5 mg/dl (1.7-2.4); Potassium 3.6 mmol/L (3.5-5.1); Total Protein 5.6 gm/dl (6.0-8.3)
[2022-08-07 07:15] LABS: Ferritin 824.6 ng/ml (8-388)
[2022-08-07] MEDS: MULTI VIT W/MINERALS LIQUID 15 ML UDP PO SCH (08:45)
[2022-08-07] MEDS: DOCUSATE SODIUM/SENNA 50/8.6MG TAB PO SCH ×2 (08:45→20:09)
[2022-08-07] MEDS: THIAMINE HCL 100 MG TAB PO SCH (08:45)
[2022-08-07] MEDS: PSYLLIUM or GUAR GUM FIBER POWDER PACKET PO SCH (08:45)
--- NOTE | 2022-08-07 08:51 | Hospitalist Progress Note ---
Date of Service August 07, 2022 Assessment & Plan (1) Stercoral colitis: Plan: Presents with severe rectal pain and severe constipation with evidence of stercoral proctitis Was recently on cough syrup with codeine which could also be contributing as well as poor p.o. intake and immobility Attempts at disimpaction in the ER on admission showed that the rectal vault was empty Clear liquid diet ordered with bowel regimen (given bisocodyl suppository, fleets enema) Contiues on miralax Q6H, senna/docusate Given 2 sodium phosphate enemas Multiple loose BM, no further abd pain. No n/v reported and tolerating diet. Discussed if continues to tolerate/no pain, advance dinner for full liquids with thin pureed/speech recs as below Limit opiates to slow GI transit Labs this morning with resolution of leukocytosis, no fevers Appears hydrated on exam/tolerating diet, will d/c further IVF fluids to prevent overload Mag low in ER 1.6, given 1gm IV. Repeat this morning 1.5--> 2gm IV ordered which should also assit with bowels Monitor overnight with advancement of diet, family wanting to take patient home with 24hr care with daughter and assistance with her 2 brothers (son updated and agreed that this was plan as well) (2) Constipation: Plan: With stercoral colitis as above Discontinuing guaifenesin with codeine which she has not taken in over a week multiple BM, monitor (3) Urinary retention: Plan: continue Quinonez placed 1 week ago for urinary retention noted in the ER likely related to severe constipation Continue tamsulosin Follow-up with urology after discharge for trial of void Could be related to constipation Family request urology consultation, does have some guerrero red hematuria in the Quinonez bag and is on Coumadin --> agreed to continue flomax HS, maintain quinonez at this time until bowel function improves. keeping quinonez in for now given ongoing hematuria, slope runner in bag. INR 3.9 and will continue to hold coumadin for now, possibly resume in AM (hx AVR) (4) Hyponatremia: Plan: Sodium mildly low at 131, likely secondary to dehydration from poor p.o. intake Gentle IVF provided overnight, Na still slightly low, Glu not elevated Will check TSH in AM given issues with constipation as well Consider adding urine studies, but may be from slight volume overload (lots of salts in soups for his clear liquid diet) (5) Decubitus ulcer of sacral area: Plan: Stage II decubitus ulcer, no evidence of infection on examination Wound care consult, offload pressure, OPTi foam see imaging (6) Low BMI: Plan: BMI quite low at 16.4 Could be secondary to chronic dysphagia and issues with swallowing as well as chronic lung disease Nutrition consult will likely be reflexive -Add multivitamin and thiamine (7) SSS (sick sinus syndrome): Plan: Status post PPM Follows with Dr. Echevarria of electrophysiology (8) IPF (idiopathic pulmonary fibrosis): Plan: Chronic, recently completed antibiotics and steroid taper Continue home oxygen -- stable on chronic 3L Follow with pulmonology Recently saw palliative medicine with Bette as an outpatient and does not want to pursue hospice at this time (9) Swallowing dysfunction: Plan: With video swallow from 03/2021 shows severe profound pharyngeal stage dysphagia with no functional swallowing no airway protection with shannon aspiration of all liquids. Recommendations are for liquids and thin pures, avoid large pills, no soft bread or pieces of meat, aspiration precautions, and outpatient speech therapy at that time with consideration for PEG tube --> advance diet to this for dinner planned (10) CAD (coronary artery disease): Plan: S/p 1 vessel CABG at the time of his AVR Continue home metoprolol, Coumadin, but no longer on atorvastatin Not on aspirin presumably due to being on Coumadin (11) Anemia: Plan: Hemoglobin at baseline at 11, macrocytic Check B12 and folate in the morning, iron studies --> B12/folate wnl Does have low iron/trans % sat, however unsaturated IBC not elevated Defer PO iron supplementation for now to prevent worsening constipation hgb 11.1--> 9.6, but had been on IVF for dehydration, also with hematuria also likely contributing from supratheurapeutic INR Monitor CBC in AM (12) S/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: Plan: Noted, most recent echocardiogram in 06/2021 shows valve is working well (13) Paroxysmal A-fib: Plan: In a V paced rhythm here. Recent cardiology notes show that he has not had any A. fib for several years on pacer interrogation On Coumadin but INR slightly supratherapeutic Continue to hold coumadin for today ( held on admission), INR 3.9 Monitor hematuria, INR in AM, restart as able With history of aortic valve replacement No need to monitor on telemetry (14) Hyperlipidemia: Plan: No longer on atorvastatin presumably due to low BMI and advanced age and comorbidities (15) HTN (hypertension): Plan: Blood pressures are controlled Continue home metoprolol (16) AAA (abdominal aortic aneurysm): Plan: Noted incidentally on CT abdomen/pelvis-infrarenal 4.6 cm unchanged from previou s no evidence of rupture Follow as an outpatient (17) Chronic respiratory failure with hypoxia: Plan: Continue home for LNC O2 for idiopathic pulmonary fibrosis (18) Leukocytosis: Plan: WBC count elevated at 12-secondary to recent completion of prednisone taper Do not suspect infection -- repeat trended down, afebrile--> Could be somewhat elevated due to stercoral colitis but no antibiotics indicated Urinalysis not consistent with infection-given 1 dose of ceftriaxone in the ER but no further antibiotics to be given --> urine cx prelim no growth monitor for any fevers Plan DVT prophylaxis-Coumadin on hold for supratherapeutic INR, monitor hematuria/INR in AM Plan for return home with 24hr family, possibly 08/08 Monitor bowels/advancement of diet DNR/DNI as discussed with patient with his 2 sons at the bedside on admission Updated son at bedside 08/07 Admission and Anticipated Discharge Date Admission Date: August 06, 2022 Subjective eval at lunch time, doing well multiple BM overnight. no abdominal pain or nausea. discussed if tolerating lunch, possibly advance for supper mag low this am, replacement ordered, should also assist with BM quinonez with guerrero red urine in bag, slightly clearer in tubing but still darkened, will hold coumadin for today, plan for resuming tomorrow Son updated at bedside, they are hopeful for return home with his sister for 24hr/care and help from him and his other brother. questions/concerns addressed at this time Review of Systems Review of Systems: All systems reviewed & are unremarkable except as noted in HPI & below Physical Exam Constitutional: WD/WN, vitals as above chronically ill, thin, appearing male son at bedside ENMT: head normocephalic, atraumatic, mmm, trachea midline without deviation Respiratory: normal respiratory effort; no cough Auscultation: + crackles (Bilateral lower and middle lung willis); no rhonchi and no wheezes stable on chronic 3L NC Cardiovascular: RRR, +AORTIC VALVE APPRECIATED, no r/b, no pitting edema/calf tenderness Chest (Breasts): Chest: + pacemaker (Left anterior chest wall) Gastrointestinal (Abdomen): Inspection/Auscultation: normal bowel sounds and + scaphoid; + abdomen abnormal to inspection (Scaphoid appearance) and abdomen not distended Percussion/Palpation: abdomen soft; abdomen nontender and no hernia Musculoskeletal: Extremities: extremities normal to inspection; no cyanosis and no clubbing Skin: no rashes, warm and dry + ulcer (Small 1 cm gluteal cleft ulcer stage II) Neurologic: moves all extremities and awake; no focal motor deficits Psychiatric: A+Ox3, euthymic affect Genitourinary: no testicular masses, no penis abnormality (Quinonez catheter in place with scant dried blood around the meatus) Guerrero red blood in Quinonez bag, slope runner in tubing Lymphatic: no lymphedema Results & Data Results & Data ([facility]) Vital Signs (Past 12 Hours) Vital Signs Temp Pulse Resp BP Pulse Ox O2 Del Method O2 Flow Rate 08/07/22 07:41 36.4 C L 79 18 120/57 L 100 Nasal Cannula 3 08/06/22 23:27 36.6 C 80 16 143/67 H 100 Nasal Cannula 3 Laboratory Results 08/07/22 08/07/22 08/07/22 Range/Units 05:47 05:47 05:47 WBC 9.17 (4.8-10.8) K/ul RBC 2.85 L (4.63-6.08) M/uL Hgb 9.6 L (14.0-18.0) g/dl Hct 28.0 L (40.1-51.0) % MCV 98.2 (80.0-100.0) fL MCH 33.7 (25.0-34.0) pg MCHC 34.3 (32.0-36.0) g/dL RDW Std Deviation 52.9 H (36.4-46.3) fL RDW Coeff of Jill 14.6 H (11.5-14.5) % Plt Count 125 L (130-400) K/uL MPV 10.3 (9.4-12.4) fL Immature Gran % (Auto) 1.3 % Neut % (Auto) 88.0 % Lymph % (Auto) 6.7 % [place] % (Auto) 3.5 % Eos % (Auto) 0.4 % Baso % (Auto) 0.1 % Neut # (Auto) 8.07 H (1.4-6.5) K/uL Lymph # (Auto) 0.61 L (1.2-3.4) K/uL [place] # (Auto) 0.32 (0.24-0.82) K/uL Eos # (Auto) 0.04 (0-0.50) K/uL Baso # (Auto) 0.01 (0-0.2) K/uL Immature Gran # (Auto) 0.12 H (0.00-0.02) K/uL Sodium 131 L (136-145) mmol/L Potassium 3.6 (3.5-5.1) mmol/L Chloride 99 (98-107) mmol/L Carbon Dioxide 28 (21-32) mmol/L Anion Gap 4 (3-11) BUN 12 (6-23) mg/dl Creatinine 0.45 L (0.6-1.4) mg/dl Est Cr Clr Drug Dosing 84.7 ml/min Est GFR ( Amer) 120.4 ml/min Est GFR (Non-Af Amer) 103.9 ml/min BUN/Creatinine Ratio 26.7 H (10-20) Glucose 99 (70-99(Fasting)) mg/dl Calcium 8.3 L (8.5-10.1) mg/dl Magnesium 1.5 L (1.7-2.4) mg/dl Iron 26 L (35-175) mcg/dl TIBC 189 L (250-450) mcg/dl Unsaturated IBC 163 (155-355) mcg/dl Transferrin % Sat 14 L (20-50) % Ferritin 824.6 H (8-388) ng/ml Total Bilirubin 1.6 H (0.2-1.0) mg/dl AST 19 (13-39) U/L ALT 14 (7-52) U/L Alkaline Phosphatase 81 (34-104) U/L Total Protein 5.6 L (6.0-8.3) gm/dl Albumin 2.9 L (3.4-5.0) gm/dl Globulin 2.7 (2.5-4.0) gm/dl Albumin/Globulin Ratio 1.1 (0.9-2) Vitamin B12 787 (180-914) pg/ml Folate 13.92 (>5.38) ng/ml PG Care Time/CCT Total # of Minutes Spent Total Time Spent with Patient: Total time spent is greater than 50% in coordination of care (as documented) at patient's floor/unit and/or counseling patient: Coding Level of Care Code 77142 Subseq Hosp Care Lvl 3 Diagnoses Stercoral colitis K52.89 Constipation K59.00 Constipation type: unspecified constipation type Urinary retention R33.9 Hyponatremia E87.1 Decubitus ulcer of sacral area L89.159 Low BMI SSS (sick sinus syndrome) I49.5 IPF (idiopathic pulmonary fibrosis) J84.112 Swallowing dysfunction R13.10 CAD (coronary artery disease) I25.10 Associated angina: without angina Coronary Disease-Associated Artery/Lesion type: [place] artery [place] vs. transplanted heart: [place] heart Anemia D64.9 S/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 Z95.4 Paroxysmal A-fib I48.0 Hyperlipidemia E78.5 HTN (hypertension) I10 AAA (abdominal aortic aneurysm) I71.40 Chronic respiratory failure with hypoxia J96.11 Leukocytosis D72.829 (1) CAD (coronary artery disease) Associated angina: without angina Coronary Disease-Associated Artery/Lesion type: [place] artery [place] vs. transplanted heart: [place] heart Qualified Code(s): I25.10 - Atherosclerotic heart disease of [place] coronary artery without angina pectoris (2) Constipation Constipation type: unspecified constipation type Qualified Code(s): K59.00 - Constipation, unspecified
[2022-08-07] MEDS ORDERED: METOPROLOL SUCC 25MG EXT REL TAB PO SCH (09:00)
[2022-08-07] MEDS: LACTATED RINGER'S 1,000 ML IV SCH (11:29)
[2022-08-07] MEDS: MAGNESIUM SULFATE / D5W 1 GM/100 ML BAG IV SCH ×2 (12:30→14:30)
[2022-08-07] MEDS: TAMSULOSIN HCL 0.4 MG CAP PO SCH (20:09)
[2022-08-08] MEDS ORDERED: ALBUMIN 25% 100 mL 25 GM/100 ML VIAL IV ONE ×2 (00:01→05:09)
[2022-08-08] MEDS ORDERED: SODIUM CHLORIDE 0.9% 1000ML 500 ML IV ONE ×2 (00:01→05:09)
--- NOTE | 2022-08-08 00:25 | Communication Note ---
Date of Service: August 08, 2022 Notified of BP 87/42 (MAP 57). H/H 11.1->9.6 previous morning. Hematuria. Patient denies complaints. P Ordered 500mL NSS bolus and 25gm of albumin. Will follow. Repeating H/H. Warfarin held since admission. 98/50 on repeat, 45 min after the above infusions started. considered infectious sources as he has had severe hypotension several times this admission. urine and blood cultures negative to date from 08/06. Ferritin elevated. has had neg GI and resp biofires. On my exam, sacral decubitus ulcer does not appear erythematous. Patient denies pain/confusion/headache. He knows he is in the hospital for constipation. 5AM 90/50. Ordering another 500mL NSS bolus and 25gm albumin.
[2022-08-08 00:34] LABS: Hematocrit (blood only) 26.9 % (40.1-51.0); Hemoglobin 9.1 g/dl (14.0-18.0)
[2022-08-08] MEDS: POLYETHYLENE (MIRALAX) 17 GM PACK PO SCH ×4 (03:05→20:08)
[2022-08-08] MEDS: PSYLLIUM or GUAR GUM FIBER POWDER PACKET PO SCH (08:43)
[2022-08-08] MEDS: THIAMINE HCL 100 MG TAB PO SCH (08:43)
[2022-08-08] MEDS: MULTI VIT W/MINERALS LIQUID 15 ML UDP PO SCH (08:43)
[2022-08-08] MEDS: DOCUSATE SODIUM/SENNA 50/8.6MG TAB PO SCH ×2 (08:43→20:09)
[2022-08-08 09:07] LABS: Hemoglobin 7.5 g/dl (14.0-18.0); Mean Corpuscular Hemoglobin 34.6 pg (25.0-34.0); Mean Corpuscular Hgb Conc 34.1 g/dL (32.0-36.0); Mean Corpuscular Volume 101.4 fL (80.0-100.0); Mean Platelet Volume 10.5 fL (9.4-12.4); Platelet Count 104 K/uL (130-400); RDW Standard Deviation 55.4 fL (36.4-46.3); Red Blood Count 2.17 M/uL (4.63-6.08); White Blood Count 5.77 K/ul (4.8-10.8)
[2022-08-08 09:20] LABS: BUN Creatinine Ratio 34.9 (10-20); Calcium 8.1 mg/dl (8.5-10.1); Creatinine Clr Calc Pharmacy 88.6 ml/min; Est GFR (African American) 122.7 ml/min; Est GFR (Non-African American) 105.9 ml/min; Magnesium 1.8 mg/dl (1.7-2.4); Potassium 3.4 mmol/L (3.5-5.1)
[2022-08-08] MEDS ORDERED: diphenhydrAMINE Capsule 25 MG CAP PO ONE (10:55)
[2022-08-08] MEDS ORDERED: ACETAMINOPHEN 325 MG TAB PO ONE (10:55)
[2022-08-08] MEDS ORDERED: SODIUM CHLORIDE 0.9% 250 ML IV PRN (10:55)
[2022-08-08] MEDS ORDERED: POTASSIUM CHLORIDE CRTAB 20 MEQ TABCR PO STA (11:00)
--- NOTE | 2022-08-08 14:52 | Urology Progress Note ---
Date of Service August 08, 2022 Assessment & Plan (1) Urinary retention: (2) Hematuria: Plan: - Urology reconsulted due to persistent hematuria. - He is afebrile, lab work reviewed - creatinine 0.43, WBC 5.77, Hgb 7.5 (previously 9.1). - Urine and blood cultures no growth. - Foreman intact and draining clear yellow urine with some blood-tinged sediment passing through during exam. - Hematuria is clearing, continue to monitor. - Do not suspect that hematuria is contributing much to recent drop in hemoglobin. - Can repeat lab value to see if erroneous. - Recommend assess for other potential etiologies if persistent. - Continue Tamsulosin. - Continue bowel regimen. - Continue supportive care and management per primary service. - Maintain Foreman catheter at this time and likely until bowel function improves or outpatient follow-up with urology. - Okay to gently hand irrigate prn clot retention or suprapubic pain. - Plan to reschedule outpatient follow-up with urology for catheter removal and further work-up with possible cystoscopy. - History of elevated PSA in the past, last value in 2011 - can be addressed outpatient. - will sign off. Admission and Anticipated Discharge Date Admission Date: August 06, 2022 Supervising Physician Co-Signing Physician Notes I have discussed Mr. Beckman's Case with CHAN Cruz and agree with the above documentation. I have low suspicion that his acute decrease in hemoglobin is related to the current hematuria if the urine is mostly clear. Would recommend evaluating other sources for bleeding. We will plan to see him as an outpatient for further work-up. Please call with any questions or concerns. Subjective Asked by hospital team to see patient due to persistent hematuria, drop in Hgb. Patient sleeping upon my arrival, arouses easily to his name. Foreman intact and draining clear yellow urine in tubing with some blood-tinged sediment. Subjectively doing okay. He says he has not had a substantial BM yet. No abdominal pain, nausea or vomiting. Appetite good. No fever or chills. Review of Systems Constitutional: as per Subjective / HPI Gastrointestinal: as per Subjective / HPI Genitourinary: + as per Subjective / HPI Physical Exam Constitutional: + thin; no acute distress Respiratory: no respiratory distress and no labored breathing Cardiovascular: Extremities: no pedal edema Gastrointestinal (Abdomen): Percussion/Palpation: abdomen soft; abdomen nontender and no guarding Musculoskeletal: Head/Neck/Chest: normocephalic and head atraumatic Neurologic: moves all extremities and awake Psychiatric: Orientation: alert and oriented x 3 Genitourinary: Foreman intact, patent and draining clear yellow urine with some blood-tinged sediment noted Results & Data ([facility]) Vital Signs (Past 12 Hours) Vital Signs Temp Pulse Pulse Pulse Resp BP BP 08/08/22 14:10 37.3 C 91 H 16 117/54 L 08/08/22 14:03 37.3 C 91 H 20 127/54 L 08/08/22 13:49 37.0 C 67 20 118/65 08/08/22 08:09 36.5 C 83 22 100/47 L 08/08/22 06:47 98 H 08/08/22 03:00 90/50 L BP Pulse Ox O2 Del Method O2 Flow Rate 08/08/22 14:10 100 08/08/22 14:03 100 08/08/22 13:49 08/08/22 08:09 96 Nasal Cannula 3 08/08/22 06:47 107/49 L 08/08/22 03:00 PG Care Time/CCT Total # of Minutes Spent Total Time Spent with Patient: Total time spent is greater than 50% in coordination of care (as documented) at patient's floor/unit and/or counseling patient: Coding Level of Care Code 45875 Subseq Hosp Care Lvl 2 Diagnoses Urinary retention R33.9 Hematuria R31.9
--- NOTE | 2022-08-08 15:16 | Hospitalist Progress Note ---
Date of Service August 08, 2022 Assessment & Plan (1) Anemia: Plan: Hemoglobin baseline is 11, macrocytic - Check B12 and folate in the morning, iron studies --> B12/folate wnl * Does have low iron/trans % sat, however unsaturated IBC not elevated * Defer PO iron supplementation for now to prevent worsening constipation - hgb 11.1--> 9.6, but had been on IVF for dehydration, also with hematuria also likely contributing from supratheurapeutic INR - Hgb dropped further this AM to 7.5, T&C for 1 unit of PRBCs given, no Lasix after given soft pressures - Plan to obtain H&H this evening and again tomorrow AM - D/w urology, do not feel significant blood loss is stemming from tract - Soft brown BM noted upon turning pt this afternoon, heme tested and sent to lab - Add Protonix 40mg BID (2) Stercoral colitis: Plan: Presents with severe rectal pain and severe constipation with evidence of noram rcoral proctitis - Was recently on cough syrup with codeine which could also be contributing as well as poor p.o. intake and immobility - Attempts at disimpaction in the ER on admission showed that the rectal vault was empty - Clear liquid diet ordered with bowel regimen (given bisacodyl suppository, fleets enema) - Continues on miralax Q6H, senna/docusate - Given 2 sodium phosphate enemas - Multiple loose BM, no further abd pain. No n/v reported and tolerating diet. - Labs this morning with resolution of leukocytosis, no fevers - Appears hydrated on exam/tolerating diet, will d/c further IVF fluids to prevent overload - Monitor overnight with advancement of diet, family wanting to take patient home with 24hr care with daughter and assistance with her 2 brothers (3) Urinary retention: Plan: - continue Everett placed 1 week ago for urinary retention noted in the ER likely related to severe constipation - Continue tamsulosin - Follow-up with urology after discharge for trial of void - Could be related to constipation - Family request urology consultation, does have some akhtar red hematuria in the Everett bag and is on Coumadin * agreed to continue flomax HS, maintain everett at this time until bowel function improves. * keeping everett in for now given ongoing hematuria, wagon washer in bag. INR 3.9 and will continue to hold coumadin for now, possibly resume in AM (hx AVR) (4) Hyponatremia: Plan: Sodium mildly low at 132, TSH WNL - Not significantly low enough to warrant aggressive w/u - If drops to 130 or lower, would obtain urine/serum osmol (5) Decubitus ulcer of sacral area: Plan: Stage II decubitus ulcer, no evidence of infection on examination - Wound care consult, offload pressure, OPTi foam (see imaging) (6) Low BMI: Plan: with severe protein calorie malnutrition - BMI quite low at 16.4 - Could be secondary to chronic dysphagia and issues with swallowing as well as chronic lung disease - Nutrition consult will likely be reflexive - Add multivitamin and thiamine (7) IPF (idiopathic pulmonary fibrosis): Plan: Chronic, recently completed antibiotics and steroid taper - Continue home oxygen -- stable on chronic 3L - Follow with pulmonology - Recently saw palliative medicine with Bette as an outpatient and does not want to pursue hospice at this time (8) Swallowing dysfunction: Plan: With video swallow from 03/2021 shows severe profound pharyngeal stage dysphagia with no functional swallowing no airway protection with shannon aspiration of all liquids. Recommendations are for liquids and thin pures, avoid large pills, no soft bread or pieces of meat, aspiration precautions, and outpatient speech therapy at that time with consideration for PEG tube (9) CAD (coronary artery disease): Plan: S/p 1 vessel CABG at the time of his AVR - On metoprolol, Coumadin at home but no longer on atorvastatin - Not on aspirin presumably due to being on Coumadin - Coumadin held d/t (10) Paroxysmal A-fib: Plan: In a V paced rhythm here. Recent cardiology notes show that he has not had any A. fib for several years on pacer interrogation - On Coumadin but INR slightly supratherapeutic - Continue to hold coumadin for today (held on admission), INR 3.9 - Monitor hematuria, INR in AM, restart as able - With history of aortic valve replacement - No need to monitor on telemetry (11) HTN (hypertension): Plan: Blood pressures are controlled - Continue home metoprolol (12) AAA (abdominal aortic aneurysm): Plan: Noted incidentally on CT abdomen/pelvis-infrarenal 4.6 cm unchanged from previous no evidence of rupture - Follow as an outpatient Plan DVT prophylaxis-Coumadin on hold for supratherapeutic INR, monitor hematuria/INR in AM Plan for return home with 24hr family, possibly 08/09 pending H&H Replacement ordered for hypokalemia of 3.4 DNR/DNI as discussed with patient with his 2 sons at the bedside on admission Updated daughter, Deysi, via phone on 08/08 Admission and Anticipated Discharge Date Admission Date: August 06, 2022 Subjective Patient seen on daily rounds this morning. He is resting comfortably in bed, offers no complaints/concerns. Had BM yesterday but not yet today. Everett remains in place with some blood-tinged urine in bag but not bothersome to patient. Denies cp or dyspnea. No n/v, fever, chills. Notified later by RN that hgb came back at 7.5 which is a 2g drop since yesterday. Review of Systems Review of Systems: All systems reviewed and are unremarkable except as noted in HPI and below. Denies fever, chills, fatigue, headache, nasal congestion, sore throat, cough, chest pain, shortness of breath, palpitations, orthopnea, PND, abdominal pain, n/v/d, constipation, dysuria, hematuria, frequency, back pain, joint pain or swelling, easy bruising or bleeding, skin lesions or rashes. Physical Exam Physical Exam: GENERAL: 86 yo Well-developed, thin frail elderly WM. NAD. LUNGS: Clear to auscultation bilaterally. No W/R/R. CARDIOVASCULAR: Regular rate and rhythm. ABDOMEN: Soft, non-tender and non-distended. BS normoactive x 4 quad. : Everett cath in place with small clot noted in tubing but otherwise draining well, blood-tinged urine in bag EXTREMITIES: No edema. Non-tender. Peripheral pulses +2/4. NEUROLOGIC: A&O x3. Nonfocal PSYCHIATRIC: Cooperative. Appropriate mood and affect. SKIN: Warm, dry, intact. No rashes or lesions. Results & Data Results & [facility] ([facility]) Vital Signs (Past 12 Hours) Vital Signs Temp Pulse Pulse Pulse Resp BP BP 08/08/22 14:25 37.1 C 88 20 117/61 08/08/22 14:10 37.3 C 91 H 16 117/54 L 08/08/22 14:03 37.3 C 91 H 20 127/54 L 08/08/22 13:49 37.0 C 67 20 118/65 08/08/22 08:09 36.5 C 83 22 100/47 L 08/08/22 06:47 98 H BP Pulse Ox O2 Del Method O2 Flow Rate 08/08/22 14:25 100 08/08/22 14:10 100 08/08/22 14:03 100 08/08/22 13:49 08/08/22 08:09 96 Nasal Cannula 3 08/08/22 06:47 107/49 L Laboratory Results 08/08/22 08:33 08/08/22 08:33 PG Care Time/CCT Total # of Minutes Spent Total Time Spent with Patient: Total time spent is greater than 50% in coordination of care (as documented) at patient's floor/unit and/or counseling patient: Coding Level of Care Code 24416 Subseq Hosp Care Lvl 3 Diagnoses Anemia D64.9 Stercoral colitis K52.89 Urinary retention R33.9 Hyponatremia E87.1 Decubitus ulcer of sacral area L89.159 Low BMI IPF (idiopathic pulmonary fibrosis) J84.112 Swallowing dysfunction R13.10 CAD (coronary artery disease) I25.10 Associated angina: without angina Coronary Disease-Associated Artery/Lesion type: [place] artery [place] vs. transplanted heart: [place] heart Paroxysmal A-fib I48.0 HTN (hypertension) I10 AAA (abdominal aortic aneurysm) I71.40 (1) CAD (coronary artery disease) Associated angina: without angina Coronary Disease-Associated Artery/Lesion type: [place] artery [place] vs. transplanted heart: [place] heart Qualified Code(s): I25.10 - Atherosclerotic heart disease of [place] coronary artery without angina pectoris
[2022-08-08 19:12] LABS: Hematocrit (blood only) 28.6 % (40.1-51.0); Hemoglobin 10.1 g/dl (14.0-18.0)
[2022-08-08] MEDS: TAMSULOSIN HCL 0.4 MG CAP PO SCH (20:09)
[2022-08-08] MEDS: PANTOprazole 40 MG TAB PO SCH (20:11)
[2022-08-09] MEDS: POLYETHYLENE (MIRALAX) 17 GM PACK PO SCH ×4 (01:30→22:42)
[2022-08-09] MEDS: MULTI VIT W/MINERALS LIQUID 15 ML UDP PO SCH (08:20)
[2022-08-09] MEDS: DOCUSATE SODIUM/SENNA 50/8.6MG TAB PO SCH ×2 (08:21→22:42)
[2022-08-09] MEDS: THIAMINE HCL 100 MG TAB PO SCH (08:21)
[2022-08-09] MEDS: PSYLLIUM or GUAR GUM FIBER POWDER PACKET PO SCH (08:21)
[2022-08-09] MEDS: PANTOprazole 40 MG TAB PO SCH ×2 (08:21→22:43)
[2022-08-09 09:10] LABS: Basophils # (auto) 0.01 K/uL (0-0.2); Basophils % (auto) 0.1 %; Eosinophils # (auto) 0.04 K/uL (0-0.50); Eosinophils % (auto) 0.6 %; Hematocrit (blood only) 30.9 % (40.1-51.0); Hemoglobin 10.9 g/dl (14.0-18.0); Immature Granulocytes # (auto) 0.08 K/uL (0.00-0.02); Immature Granulocytes % (auto) 1.1 %; Lymphocytes # (auto) 0.87 K/uL (1.2-3.4); Mean Corpuscular Hemoglobin 33.3 pg (25.0-34.0); Mean Corpuscular Hgb Conc 35.3 g/dL (32.0-36.0); Mean Corpuscular Volume 94.5 fL (80.0-100.0); Monocytes # (auto) 0.28 K/uL (0.24-0.82); Monocytes % (auto) 3.9 %; Neutrophils # (auto) 5.97 K/uL (1.4-6.5); Neutrophils % (auto) 82.3 %; Platelet Count 111 K/uL (130-400); RDW Coefficient of Variation 17.6 % (11.5-14.5); RDW Standard Deviation 61.2 fL (36.4-46.3); Red Blood Count 3.27 M/uL (4.63-6.08); White Blood Count 7.25 K/ul (4.8-10.8)
[2022-08-09 09:16] LABS: Calcium 8.5 mg/dl (8.5-10.1); Creatinine Clr Calc Pharmacy 76.2 ml/min; Est GFR (African American) 115.3 ml/min; Est GFR (Non-African American) 99.5 ml/min; Potassium 4.4 mmol/L (3.5-5.1)
[2022-08-09] MEDS ORDERED: bisacodyL 10 MG SUPP PR PRN (16:34)
--- NOTE | 2022-08-09 16:52 | Hospitalist Progress Note ---
Date of Service August 09, 2022 Assessment & Plan (1) Anemia: Plan: Attending: Dr. Celis Impression: 86-year-old male admitted 08/06/2022 with stercoral colitis. Ongoing constipation. Patient reports no new complaints. He does have persistent pain to his decubitus ulcer as well as to his rectum and states he is having difficulty with bowel movement because of pain. Otherwise, patient is tolerating treatment plan. Hemoglobin baseline is 11, macrocytic - B12/folate wnl * Does have low iron/trans % sat, however unsaturated IBC not elevated * Defer PO iron supplementation for now to prevent worsening constipation - hgb 11.1--> 9.6, but had been on IVF for dehydration, also with hematuria also likely contributing from supratheurapeutic INR - Hgb dropped to 7.5 08/08/2022 and was transfused 1 unit of PRBCs. Hemoglobin is over 10 this morning -Follow serial H&H -Previously d/w urology. They do not feel significant blood loss is stemming from tract -Trace brown streaks but no clear bowel movement -Continue Protonix 40mg BID (2) Stercoral colitis: Plan: Presents with severe rectal pain and severe constipation with evidence of stercoral proctitis - Was recently on cough syrup with codeine which could also be contributing as well as poor p.o. intake and immobility - Attempts at disimpaction in the ER on admission showed that the rectal vault was empty - Clear liquid diet ordered with bowel regimen (given bisacodyl suppository, fleets enema) - Continues on miralax Q6H, senna/docusate - Given 2 sodium phosphate enemas - Multiple loose BM, no further abd pain. No n/v reported and tolerating diet. - Labs with resolution of leukocytosis, no fevers - Tolerating diet, will d/c further IVF fluids to prevent overload - Advance diet as tolerated, family wanting to take patient home with 24hr care with daughter and assistance with her 2 brothers -Today, patient talked about terminating treatment. Son came to visit close to 7 PM. Will talk with him tomorrow. In the meantime, palliative consult was placed -Patient did have outpatient palliative medicine consult but missed appointment. He then had a telephone visit with [facility] palliation team. He is scheduled for outpatient palliative medicine consult 08/27/2022. In the meantime, will consult our palliative team as patient may wish to terminate treatment while an inpatient. (3) Urinary retention: Plan: - continue Everett placed 1 week ago for urinary retention noted in the ER likely related to severe constipation - Continue tamsulosin - Follow-up with urology after discharge for trial of void - Could be related to constipation - Family request urology consultation, does have some akhtar red hematuria in the Everett bag and is on Coumadin * agreed to continue flomax HS, maintain everett at this time until bowel function improves. * keeping everett in for now given ongoing hematuria, [employer] in bag. INR 3.9 and will continue to hold coumadin for now, possibly resume in AM (hx AVR) (4) Hyponatremia: Plan: Sodium mildly low at 132, TSH WNL - Not significantly low enough to warrant aggressive w/u - If sodium continues to drop, consider urine/serum osmol (5) Decubitus ulcer of sacral area: Plan: Stage II decubitus ulcer, no evidence of infection on examination per previous team - Wound care consult, offload pressure, OPTi foam (see imaging) (6) Low BMI: Plan: with severe protein calorie malnutrition - BMI quite low at 16.4 - Could be secondary to chronic dysphagia and issues with swallowing as well as chronic lung disease - Nutrition consult will likely be reflexive - Add multivitamin and thiamine -Palliative medicine consult would be appropriate. This been placed. Will await their comment (7) IPF (idiopathic pulmonary fibrosis): Plan: Chronic, recently completed antibiotics and steroid taper - Continue home oxygen -- stable on chronic 3L - Follow with pulmonology as an outpatient - Recently saw palliative medicine with Bette as an outpatient and does not want to pursue hospice at this time (8) Swallowing dysfunction: Plan: With video swallow from 03/2021 shows severe profound pharyngeal stage dysphagia with no functional swallowing no airway protection with shannon aspiration of all liquids. Recommendations are for liquids and thin pures, avoid large pills, no soft bread or pieces of meat, aspiration precautions, and outpatient speech therapy at that time with consideration for PEG tube (9) CAD (coronary artery disease): Plan: S/p 1 vessel CABG at the time of his AVR - On metoprolol, Coumadin at home but no longer on atorvastatin - Not on aspirin presumably due to being on Coumadin - Coumadin held d/t (10) Paroxysmal A-fib: Plan: In a V paced rhythm here. Recent cardiology notes show that he has not had any A. fib for several years on pacer interrogation - On Coumadin but INR slightly supratherapeutic - Continue to hold coumadin for today (held on admission), INR 3.9 - Monitor hematuria, INR in AM, restart as able - With history of aortic valve replacement - No need to monitor on telemetry (11) HTN (hypertension): Plan: Blood pressures are controlled - Continue home metoprolol (12) AAA (abdominal aortic aneurysm): Plan: Noted incidentally on CT abdomen/pelvis-infrarenal 4.6 cm unchanged from previous no evidence of rupture - Follow as an outpatient Plan DVT prophylaxis-Coumadin on hold for supratherapeutic INR, monitor hematuria/INR in AM Plan for return home with 24hr family, possibly 08/09 pending H&H Replacement ordered for hypokalemia of 3.4 DNR/DNI as discussed with patient with his 2 sons at the bedside on admission Updated daughter, Deysi, via phone on 08/08 Admission and Anticipated Discharge Date Admission Date: August 06, 2022 Subjective Attending: Dr. Celis 86-year-old male admitted 08/06/2022 with stercoral colitis. Patient is having difficulty with bowel movements secondary to rectal pain. He has been placed on significant bowel regimen and is requesting suppository. Patient seen at bedside in room 354. He seems discouraged but engaging. He indicates he still has considerable pain to his rectum and is hesitant to have a bowel moveme nt because of pain. He is on bowel regimen and offered suppository and enema. He will start with suppository and follow from there. He denies any fever or chills. He has no nausea or vomiting. He denies any bowel movement but states that he does have some gas. He has no other acute complaints at this time. Review of Systems Review of Systems: A total of 10 systems was reviewed and is negative other than as listed in the HPI Physical Exam Physical Exam: GENERAL : No acute distress. Appears cachectic EYES: No icterus, gaze conjugate NOSE: No evidence of epistaxis MOUTH: No lesions or candidiasis NECK: Supple LUNGS: Velcro type crackles to bilateral lungs in the posterior willis. No bronchospasm appreciated. No upper lung rhonchi. Good inspirational effort with no induced cough HEART: Regular, rate controlled ABDOMEN: Soft, NT, ND, BS Present EXTREMITIES: No LE edema, pedal pulses intact NEURO: A&OX3 Results & Data Results & Data ([facility]) Vital Signs (Past 12 Hours) Vital Signs Temp Pulse Resp BP Pulse Ox O2 Del Method 08/09/22 16:04 37.6 C H 63 18 137/55 L 97 Room Air 08/09/22 12:08 37.2 C 08/09/22 07:57 37.6 C H 08/09/22 07:34 37.8 C H 98 H 18 108/56 L 97 Room Air Critical Care Results & Data Vital Signs (Past 12 Hours) Vital Signs Temp Pulse Resp BP BP Pulse Ox O2 Del Method 08/09/22 23:09 91/53 L 08/09/22 21:39 37.3 C 60 19 108/44 L 97 Room Air 08/09/22 21:13 92/38 L 08/09/22 20:58 93/31 L 08/09/22 20:55 37.5 C 60 24 81/47 L 94 Room Air 08/09/22 16:04 37.6 C H 63 18 137/55 L 97 Room Air 08/09/22 12:08 37.2 C Lab & Micro Results (Past 24 Hours) RBC 3.31 M/uL (4.63-6.08) L 08/09/22 WBC 10.05 K/ul (4.8-10.8) 08/09/22 Hgb 11.2 g/dl (14.0-18.0) L 08/09/22 Hct 32.0 % (40.1-51.0) L 08/09/22 MCV 96.7 fL (80.0-100.0) 08/09/22 MCH 33.8 pg (25.0-34.0) 08/09/22 MCHC 35.0 g/dL (32.0-36.0) 08/09/22 RDW Standard Deviation 61.2 fL (36.4-46.3) H 08/09/22 RDW Coefficient of Variation 17.2 % (11.5-14.5) H 08/09/22 Plt Count 125 K/uL (130-400) L 08/09/22 MPV 10.2 fL (9.4-12.4) 08/09/22 Neutrophils (%) (Auto) 84.5 % 08/09/22 Lymphocytes (%) (Auto) 11.1 % 08/09/22 Monocytes # (Auto) 0.35 K/uL (0.24-0.82) 08/09/22 Eosinophils # (Auto) 0.01 K/uL (0-0.50) 08/09/22 Immature Granulocyte % (Auto) 0.6 % 08/09/22 Neutrophils # (Auto) 8.49 K/uL (1.4-6.5) H 08/09/22 Lymphocytes # (Auto) 1.12 K/uL (1.2-3.4) L 08/09/22 Monocytes # (Auto) 0.35 K/uL (0.24-0.82) 08/09/22 Eosinophils # (Auto) 0.01 K/uL (0-0.50) 08/09/22 Basophils # (Auto) 0.02 K/uL (0-0.2) 08/09/22 Immature Granulocyte # (Auto) 0.06 K/uL (0.00-0.02) H 08/09 Na 128 mmol/L (136-145) L 08/09/22 K 4.3 mmol/L (3.5-5.1) 08/09/22 Cl 93 mmol/L (98-107) L 08/09/22 CO2 28 mmol/L (21-32) 08/09/22 Anion Gap 7 (3-11) 08/09/22 BUN 18 mg/dl (6-23) 08/09/22 Creatinine 0.74 mg/dl (0.6-1.4) 08/09/22 Estimated GFR ( Amer) 98.2 ml/min 08/09/22 Estimated GFR (Non-Af Amer) 84.7 ml/min 08/09/22 BUN/Creatinine Ratio 24.3 (10-20) H 08/09/22 Glu 164 mg/dl (70-99(Fasting)) H 08/09/22 Ca 9.3 mg/dl (8.5-10.1) 08/09/22 Total Bilirubin 1.5 mg/dl (0.2-1.0) H 08/09/22 AST 22 U/L (13-39) 08/09/22 ALT 12 U/L (7-52) 08/09/22 Alkaline Phosphatase 79 U/L (34-104) 08/09/22 TP 6.3 gm/dl (6.0-8.3) 08/09/22 Albumin 3.4 gm/dl (3.4-5.0) 08/09/22 Globulin 2.9 gm/dl (2.5-4.0) 08/09/22 Albumin/Globulin Ratio 1.2 (0.9-2) 08/09/22 Calcium Level 9.3 mg/dl (8.5-10.1) 08/09/22 20:38 Diagnostic Findings (Past 24 Hours) KUB X-Ray 08/09/22 20:16 KUB HISTORY: Acute chest and abdominal pain abd pain COMPARISON: Chest radiograph of same day, CT abdomen and pelvis 08/06/2022 FINDINGS: Nonobstructive bowel gas pattern with moderate fecal retention. Surgical clips of the upper abdomen. No renal calculi. No ureteral calculi. No pneumoperitoneum or pneumatosis. Atherosclerosis with aneurysmal dilation of the abdominal aorta redemonstrated. Degenerative changes of the spine, pelvis and hips. No fracture. IMPRESSION: Moderate fecal retention with nonobstructive bowel gas pattern. ACT 112: Negative or not required by law. The above report was generated using voice recognition software. It may contain grammatical, syntax or spelling errors. Electronically signed by: Rafa Jackson M.D. 08/09/2022 8:47 PM Chest X-Ray 08/09/22 20:23 XR chest 1V portable HISTORY: 86 years-old Male covid pneumonia acute shortness of breath COMPARISON: Chest radiograph 08/06/2022 TECHNIQUE: AP view of the chest FINDINGS: Cardiac silhouette is enlarged. Prior median sternotomy with cardiac valvular prosthesis. Left subclavian pacer. Chronic interstitial lung disease. No pneumothorax, pleural effusion or lobar airspace consolidation. Degenerative braden nges of the shoulders and spine. Surgical clips of the upper abdomen. IMPRESSION: 1. No acute processes of the chest. 2. Chronic interstitial lung disease. ACT 112: Negative or not required by law. The above report was generated using voice recognition software. It may contain grammatical, syntax or spelling errors. Electronically signed by: Rafa Jackson M.D. 08/09/2022 8:48 PM I & O Totals 24 Hours 08/08/22 08/09/22 08/10/22 06:59 06:59 06:59 Intake Total 2371.167 / 2371.167 410 / 410 740 / 740 Output Total 2450 / 2450 3850 / 3850 150 / 150 Balance -78.833 / -78.833 -3440 / -3440 590 / 590 Cumulative 08/06/22 04:58 thru 08/09/22 22:49 Intake Total 5845.167 Output Total 7700 Balance -1854.833 RT Ventilator Mngmt (Last Documented) Ventilator Ordered Settings Respiratory Rate 19 08/09/22 21:39 Ventilator - PT Measurements Respiratory Rate 19 PG Care Time/CCT Total # of Minutes Spent Total Time Spent with Patient: Total time spent is greater than 50% in coordination of care (as documented) at patient's floor/unit and/or counseling patient: Coding Level of Care Code 48707 Subseq Hosp Care Lvl 2 Diagnoses Anemia D64.9 Stercoral colitis K52.89 Urinary retention R33.9 Hyponatremia E87.1 Decubitus ulcer of sacral area L89.159 Low BMI IPF (idiopathic pulmonary fibrosis) J84.112 Swallowing dysfunction R13.10 CAD (coronary artery disease) I25.10 Associated angina: without angina Coronary Disease-Associated Artery/Lesion type: [place] artery [place] vs. transplanted heart: [place] heart Paroxysmal A-fib I48.0 HTN (hypertension) I10 AAA (abdominal aortic aneurysm) I71.40 (1) CAD (coronary artery disease) Associated angina: without angina Coronary Disease-Associated Artery/Lesion type: [place] artery [place] vs. transplanted heart: [place] heart Qualified Code(s): I25.10 - Atherosclerotic heart disease of [place] coronary artery without angina pectoris
--- NOTE | 2022-08-09 20:24 | Communication Note ---
Date of Service: August 09, 2022 soft bp. albumin, NSS bolus. temp 37.6 (37.8 in AM). Lactate 2.4->0.8. repeated blood cultures. Ct abd w/o perf. + large stool. Started Zosyn (for possibility of infection from rectal enemas/disimpaction). MAP 52 despite IV fluids and albumin. Spoke to daughter. Initially, changed to conditional code. MAP transiently better to 66. MAP low 50s again despite more fluids and albumin. In contrast to previous night, the hypotension seems more refractory to the fluids and albumin. I spoke w/ patient in detail and recommended ICU care w/ pressor support. he is aware that he will likely pass during this hospitalization if his blood pressure stays low. He is fully alert and oriented to location, context, and time. Patient states his baseline is independent w/ full ADLs including finances prior to this admission. He was admitted for stercoral colitis 2/2 severe stool burden. The stool burden persists despite multiple enemas and laxatives and disimpactions, though he did have transient BMs on previous days. Repeat CT with large stool burden. I emphasized to patient that his current presentation (large stool burden and possible sepsis) may be treatable. He is worried about burdening his family (such as regarding finances) and does not want to go home to pass. He chooses to not escalate care and agreed to comfort measures. Nurse is present during conversation. Patient subsequently speaks to his daughter (primary contact) and son. I speak to daughter who prefers escalation of care but knows that it is her father's choice to make. Daughter lives 2 hours away and is unsure if she will be able to get ride to hospital. The 2 sons are on their way. As of 7AM, the sons have not arrived. Deferring to dayshift. Consider implementing comfort measure orders after arrival. Please call patient's daughter if any changes in patient condition as she is the primary contact.
--- NOTE | 2022-08-09 20:48 | XRay Report ---
KUB HISTORY: Acute chest and abdominal pain abd pain COMPARISON: Chest radiograph of same day, CT abdomen and pelvis 08/06/2022 FINDINGS: Nonobstructive bowel gas pattern with moderate fecal retention. Surgical clips of the upper abdomen. No renal calculi. No ureteral calculi. No pneumoperitoneum or pneumatosis. Atherosclerosis with aneurysmal dilation of the abdominal aorta redemonstrated. Degenerative changes of the spine, p nazario and hips. No fracture. IMPRESSION: Moderate fecal retention with nonobstructive bowel gas pattern. ACT 112: Negative or not required by law. The above report was generated using voice recognition software. It may contain grammatical, syntax o r spelling errors. Electronically signed by: Rafa Jackson M.D. 08/09/2022 8:47 PM
--- NOTE | 2022-08-09 20:50 | XRay Report ---
XR chest 1V portable HISTORY: 86 years-old Male covid pneumonia acute shortness of breath COMPARISON: Chest radiograph 08/06/2022 TECHNIQUE: AP view of the chest FINDINGS: Cardiac silhouette is enlarged. Prior median sternotomy with cardiac valvular prosthesis. Left subcla vian pacer. Chronic interstitial lung disease. No pneumothorax, pleural effusion or lobar airspace co nsolidation. Degenerative changes of the shoulders and spine. Surgical clips of the upper abdomen. IMPRESSION: 1. No acute processes of the chest. 2. Chronic interstitial lung disease. ACT 112: Negative or not required by law. The above report was generated using voice recognition software. It may contain grammatical, syntax o r spelling errors. Electronically signed by: Rafa Jackson M.D. 08/09/2022 8:48 PM
[2022-08-09] MEDS ORDERED: SODIUM CHLORIDE 0.9% 1000ML 500 ML IV ONE ×2 (21:00→22:29)
[2022-08-09] MEDS ORDERED: ALBUMIN 25% 100 mL 25 GM/100 ML VIAL IV ONE (21:00)
[2022-08-09 21:22] LABS: Hemoglobin 11.2 g/dl (14.0-18.0); Mean Corpuscular Hemoglobin 33.8 pg (25.0-34.0); Mean Corpuscular Volume 96.7 fL (80.0-100.0); Mean Platelet Volume 10.2 fL (9.4-12.4); Platelet Count 125 K/uL (130-400); RDW Coefficient of Variation 17.2 % (11.5-14.5); RDW Standard Deviation 61.2 fL (36.4-46.3); Red Blood Count 3.31 M/uL (4.63-6.08); White Blood Count 10.05 K/ul (4.8-10.8)
[2022-08-09 21:39] LABS: Albumin Globulin Ratio 1.2 (0.9-2); Albumin Level 3.4 gm/dl (3.4-5.0); BUN Creatinine Ratio 24.3 (10-20); Bilirubin,Total 1.5 mg/dl (0.2-1.0); C Reactive Protein 13.7 mg/dl (0-0.5); Calcium 9.3 mg/dl (8.5-10.1); Creatinine Clr Calc Pharmacy 51.5 ml/min; Est GFR (African American) 98.2 ml/min; Est GFR (Non-African American) 84.7 ml/min; Globulin 2.9 gm/dl (2.5-4.0); Potassium 4.3 mmol/L (3.5-5.1); Total Protein 6.3 gm/dl (6.0-8.3)
[2022-08-09 22:01] LABS: Basophils # (auto) 0.02 K/uL (0-0.2); Basophils % (auto) 0.2 %; Eosinophils # (auto) 0.01 K/uL (0-0.50); Eosinophils % (auto) 0.1 %; Immature Granulocytes # (auto) 0.06 K/uL (0.00-0.02); Immature Granulocytes % (auto) 0.6 %; Lymphocytes # (auto) 1.12 K/uL (1.2-3.4); Lymphocytes % (auto) 11.1 %; Monocytes # (auto) 0.35 K/uL (0.24-0.82); Monocytes % (auto) 3.5 %; Neutrophils # (auto) 8.49 K/uL (1.4-6.5); Neutrophils % (auto) 84.5 %
[2022-08-09] MEDS ORDERED: PIPERACILLIN/TAZOBACTAM 4.5 GM in DEXTROSE 5% 100 ML IV ONE (22:30)
[2022-08-09] MEDS: TAMSULOSIN HCL 0.4 MG CAP PO SCH (22:48)
[2022-08-10] MEDS ORDERED: ACETAMINOPHEN 1,000 MG/100 ML VIAL IV PRN (01:04)
[2022-08-10] MEDS ORDERED: ALBUMIN 25% 100 mL 25 GM/100 ML VIAL IV ONE (02:06)
[2022-08-10] MEDS ORDERED: SODIUM CHLORIDE 0.9% 1000ML 500 ML IV ONE (02:06)
[2022-08-10] MEDS: POLYETHYLENE (MIRALAX) 17 GM PACK PO SCH ×2 (03:02→10:09)
[2022-08-10] MEDS ORDERED: PIPERACILLIN/TAZOBACTAM 3.375 GM in DEXTROSE 5% 100 ML IV SCH (04:00)
[2022-08-10 04:09] LABS: BUN Creatinine Ratio 28.4 (10-20); Calcium 8.5 mg/dl (8.5-10.1); Creatinine Clr Calc Pharmacy 51.5 ml/min; Est GFR (African American) 98.2 ml/min; Est GFR (Non-African American) 84.7 ml/min; Hematocrit (blood only) 27.1 % (40.1-51.0); Hemoglobin 9.3 g/dl (14.0-18.0); Magnesium 1.9 mg/dl (1.7-2.4); Mean Corpuscular Hemoglobin 33.1 pg (25.0-34.0); Mean Corpuscular Hgb Conc 34.3 g/dL (32.0-36.0); Mean Corpuscular Volume 96.4 fL (80.0-100.0); Mean Platelet Volume 10.2 fL (9.4-12.4); Phosphorus 2.1 mg/dl (2.5-4.9); Platelet Count 98 K/uL (130-400); Potassium 4.3 mmol/L (3.5-5.1); RDW Coefficient of Variation 17.2 % (11.5-14.5); Red Blood Count 2.81 M/uL (4.63-6.08); White Blood Count 7.76 K/ul (4.8-10.8)
[2022-08-10 04:10] LABS: Basophils # (auto) 0.01 K/uL (0-0.2); Basophils % (auto) 0.1 %; Immature Granulocytes # (auto) 0.06 K/uL (0.00-0.02); Immature Granulocytes % (auto) 0.8 %; Lymphocytes % (auto) 11.6 %; Monocytes # (auto) 0.33 K/uL (0.24-0.82); Monocytes % (auto) 4.3 %; Neutrophils # (auto) 6.46 K/uL (1.4-6.5); Neutrophils % (auto) 83.2 %; Ovalocytes 1+; Platelet Estimate Decreased (Normal)
--- NOTE | 2022-08-10 07:51 | CT Scan Report ---
ABDOMEN AND PELVIS CT WITHOUT CONTRAST CT DOSE: 288.94 mGy.cm HISTORY: Rectal pain. Assess for perforation. TECHNIQUE: Multiaxial CT images of the abdomen and pelvis were performed without contrast. A dose lo wering technique was utilized adhering to the principles of ALARA. COMPARISON STUDY: Abdomen and pelvis CT 08/06/2022. FINDINGS: Pulmonary fibrosis with traction bronchiectasis again noted within the lung bases. Progress annika interstitial thickening and patchy bibasilar densities are noted. This likely represents a pneumo gladis. The heart remains enlarged. Aortic valve prosthesis and pacemaker wires are partially visualized . No pneumoperitoneum. No pneumatosis. No acute fractures within the visualized osseous structures. C holecystectomy. Trace perihepatic ascites. The unenhanced liver, spleen, adrenal glands, and pancreas are unremarkable. There is a punctate stone within the left kidney. No ureteral stones. No hydroneph rosis. Normal right kidney. No retroperitoneal lymphadenopathy. Unchanged saccular aneurysm dilatatio n of the infrarenal abdominal aorta measuring up to 4.6 cm. No retroperitoneal hemorrhage identified. The bladder is decompressed by Foreman catheter. This likely accounts for the gas within the bladder. The prostate gland remains enlarged. There is a change in the large rectal stool ball measuring up to 11 cm in size. There is a large amount of stool seen throughout the remaining mildly distended colon most pronounced within the distal sigmoid colon. No dilated loops of small bowel identified. Mild pe rirectal edema is noted. This remains unchanged. There is mild thickening of the distal sigmoid colon and rectum for the degree of distention. This suggests a stercoral colitis. No extraluminal gas to s uggest a perforation. IMPRESSION: 1. Large amount well-formed stool seen throughout the colon including a large rectal stool ball measu ring up to 11 cm in size. There is mild associated perirectal fat stranding and questionable thickeni ng of the distal sigmoid colon and rectum. Therefore, this could represent a stercoral colitis. No pn eumatosis or pneumoperitoneum identified at this time to suggest a perforation. Overall, this is anthony lar to the prior study. 2. Chronic interstitial lung disease with progressive patchy bibasilar airspace opacities. This likel y represents a pneumonia. 3. Unchanged saccular aneurysmal dilatation of the infrarenal abdominal aorta measuring 4.6 cm. 4. Additional findings as described above. ACT 112: Negative or not required by law. Electronically signed by: Rainer Charles M.D. 08/10/2022 7:50 AM
[2022-08-10] MEDS ORDERED: SODIUM CHLORIDE 0.9% 1000ML 1,000 ML IV SCH (08:00)
--- NOTE | 2022-08-10 08:42 | Palliative Care Consultation ---
Date of Consultation August 10, 2022 Assessment & Plan (1) Back pain: Persistent pain after two doses of IV morphine 2mg in 1 hour. Dose increased to 4mg with some relief but requesting medication again in one hour. After several discussions with family, plan will be to start morphine infusion. (2) Rectal pain: As above. (3) SOB (shortness of breath): improved with opioids. (4) Anxiety: He is anxious and frustrated with having pain and tells me that he wants to be "terminated". We discussed options for symptom relief including opioids and lorazepam for anxiety to relieve his symptoms until his dying time. (5) Palliative care encounter: I met with his two sons who tell me that they have talked about this with their father and understand that he is ready to . They feel that he has been ready since the of his two years ago and that he wants to be with her. They respect his wish and request that the focus of his care be on comfort and symptom management. We discussed options for symptom management and they are in favor of opioid for pain, including an infusion if needed. They asked about prognosis which is likely a matter of days. He had been asking about going home, saying that he wanted to in his own bed. His sons tell me that they discussed this and that he is now agreeable to remaining in the hospital. Later in the day, Mr. Beckman is insistent on going home. Discussed with hospitalist that it would be difficult to arrange hospice care on Saturday afternoon, particularly if he is on opioid infusion. I do not recommend going home until pain is adequately controlled. If he is stable at that time, hospice support could be arranged for home. History of Present Illness Reason for Consultation: goals of care Requesting Physician: CAROLYNE Cortes Attending Physician: Nirmal Browning DO History of Present Illness 86 yo gentleman with IPF, CAD, SSS, afib, chronic dysphagia and failure to thrive. He has had multiple recent hospitalizations. He was admitted with stercoral colitis and urinary retention. He had recently been hospitalized with respiratory failure and apical pneumothorax. He has had progressive functional decline over the last two years since his . He had been living independently but recently had been staying with his daughter, Deysi, in [place] as he was unable to be on his own. He has declined further treatment and is requesting comfort care. He complains of pain in his back. He has had abdominal pain and discomfort related to a sacral decubitus ulcer. He has received IV tylenol prior to this due to severe constipation. He denies nausea but has had poor appetite. He is asking for a cupcake at this time. Allergies Allergy/AdvReac Type Severity Reaction Status Date / Time No Known Allergies Allergy Verified 07/31/22 16:40 Home Medications Medication Instructions Recorded Confirmed Type Oxygen Home #4 L 06/12/22 08/06/22 Rx Portable Oxygen #1 ea 06/12/22 08/06/22 Rx metoprolol succinate 50 mg 25 mg PO QAM #90 tabs 06/23/22 08/06/22 Rx tablet,extended release 24 hr Oxygen Home #4 L 07/19/22 08/06/22 Rx warfarin 3 mg tablet See Rx Instructions .Route .COMPLEX 07/31/22 08/06/22 History guar gum 1 gram tablet 1 g PO DAILY 08/06/22 08/06/22 History tamsulosin 0.4 mg capsule 0.4 mg PO HS 08/06/22 08/06/22 History haloperidol 2 mg tablet 2 mg PO Q4H PRN nausea and 08/10/22 Rx vomiting, agitation, terminal delirium #20 tabs lorazepam 2 mg tablet (Ativan) 2 mg buccal Q4H PRN anxiety #20 08/10/22 Rx tabs oxycodone 5 mg/5 mL oral solution 15 mg (15 mL) PO Q1H #500 mL 08/10/22 Rx Patient History Medical History AAA (abdominal aortic aneurysm) Acute exacerbation of idiopathic pulmonary fibrosis Anemia Anticoagulant long-term use Chronic respiratory failure with hypoxia Elevated prostate specific antigen (PSA) Hearing loss High serum ferritin HTN (hypertension) Hyperlipidemia Hypoxemia Hypoxemia Interstitial lung disease IPF (idiopathic pulmonary fibrosis) Low BMI Mediastinal adenopathy Multiple lung nodules on CT Pacemaker Paroxysmal A-fib Paroxysmal ventricular tachycardia Subdural hematoma (01/2019) Surgical History Hx of cholecystectomy Hx of tonsillectomy 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) S/P craniotomy (01/2019) Family History Father Lung cancer Sister Breast cancer Unknown Hypertension Other Anticoagulant long-term use Family history non-contributory Hyperlipidemia Pacemaker Denies family history of Colon cancer Ovarian cancer Prostate cancer Myocardial infarction Social History Smoking Status: Former smoker Tobacco Type: Cigarettes Age Quit Using Tobacco: 41; packs per day: 0.25; Years Smoked: 4; Cigarettes Per Day: 1/4 of a pack; Number of Years Since Quit: 45; Second Hand Exposure: No; Do You Dip or Chew Tobacco: No; Tobacco Cessation Education Requested by Patient: No Hx Alcohol Use: Yes Alcohol type: hard liquor Alcohol Intake Frequency Comment: 1-2 per day Hx Substance Use: No Preferred Language: Albanian Communication Ability: Effective Visual Impairment: No Limitations Hearing Ability: Normal Cracking Unit Operator Required: No Beliefs That Will Affect Care: None marital status: / Current Living Situation: Alone current occupational status: retired How many Children do You have: 3 Other Information That Helps Us Care for You: No Feels Safe at Home: Yes Safety Concerns: Feels Safe At This Time Childhood Exposure to Second-Hand Smoke: Yes Dental Care, Regularly: Yes Physical Activity Frequency: Does not Exercise Seatbelt Use: always Sunscreen Use: No Assistive Devices: Cane and Walker Review of Systems Review of Systems: ESAS Pain 3/3 Dyspnea 1/3 at rest Nausea 0/3 Drowsiness 0/3 Anxiety 2/3 PPS 30% Physical Exam Constitutional: + cachectic ENMT: Mouth: oral mucous membranes not dry Respiratory: + uses accessory muscles Cardiovascular: Rate/Rhythm: regular rate and regular rhythm Gastrointestinal (Abdomen): tender to palpation across lower abdomen Musculoskeletal: Extremities: + muscle atrophy Skin: warm and dry Neurologic: Speech / Cognition: normal cognition Genitourinary: everett catheter Results & Data ([facility]) Vital Signs (Past 12 Hours) Vital Signs Temp Pulse Resp BP BP Pulse Ox Pulse Ox 08/10/22 05:00 95 08/10/22 03:50 98.1 F 60 16 77/43 L 100 08/10/22 01:18 97.9 F 80 16 87/44 L 96 08/10/22 01:18 96 08/10/22 00:42 98/42 L 08/10/22 00:00 97/49 L 08/09/22 22:15 77/44 L 94/32 L 08/09/22 23:09 91/53 L 08/09/22 21:39 99.1 F 60 19 108/44 L 97 08/09/22 21:13 92/38 L 08/09/22 20:58 93/31 L 08/09/22 20:55 99.5 F 60 24 81/47 L 94 O2 Del Method O2 Del Method O2 Flow Rate 08/10/22 05:00 Nasal Cannula 2 08/10/22 03:50 08/10/22 01:18 Room Air 08/10/22 01:18 Room Air 08/10/22 00:42 08/10/22 00:00 08/09/22 22:15 08/09/22 23:09 08/09/22 21:39 Room Air 08/09/22 21:13 08/09/22 20:58 08/09/22 20:55 Room Air PG Care Time/CCT Total # of Minutes Spent Total Time Spent: 94 Total Time Spent with Patient: Total time spent is greater than 50% in coordination of care (as documented) at patient's floor/unit and/or counseling patient: symptom management, patient and family education and support, coordination of care Coding Level of Care Code 40904 Initial Inpt Care Lvl 3 Diagnoses Back pain M54.9 Rectal pain K62.89 SOB (shortness of breath) R06.02 Anxiety F41.9 Palliative care encounter Z51.5
[2022-08-10] MEDS ORDERED: LORazepam 0.5 MG in SYRINGE 0 ML IV PRN ×2 (09:02→09:23)
[2022-08-10] MEDS ORDERED: MoRPHine SULFATE 2 MG/ML CARP IV PRN (09:02)
[2022-08-10] MEDS ORDERED: MoRPHine SULFATE 2 MG/ML CARP ONE (09:09)
[2022-08-10] MEDS ORDERED: LORazepam 0.5 MG TAB PO PRN (09:23)
[2022-08-10] MEDS ORDERED: ONDANSETRON INJ 2 MG/ML 2 ML VIAL IV PRN (09:23)
[2022-08-10] MEDS ORDERED: GLYCOPYRROLATE 0.2 MG/ML VIAL IV PRN (09:23)
[2022-08-10] MEDS ORDERED: ONDANSETRON 4 MG OD TAB SL PRN (09:23)
[2022-08-10] MEDS: MULTI VIT W/MINERALS LIQUID 15 ML UDP PO SCH (10:09)
[2022-08-10] MEDS: DOCUSATE SODIUM/SENNA 50/8.6MG TAB PO SCH (10:09)
[2022-08-10] MEDS: THIAMINE HCL 100 MG TAB PO SCH (10:10)
[2022-08-10] MEDS: PANTOprazole 40 MG TAB PO SCH (10:10)
[2022-08-10] MEDS: PSYLLIUM or GUAR GUM FIBER POWDER PACKET PO SCH (10:10)
[2022-08-10] MEDS ORDERED: MoRPHine SULFATE 4 MG/ML 1 ML CARP\\VIAL IV PRN ×2 (10:34→15:00)
[2022-08-10] MEDS ORDERED: MoRPHine BOLUS from BAG IV PRN (12:24)
[2022-08-10] MEDS ORDERED: MoRPHine SULF/NSS 250 MG/250 ML BTL IV SCH (13:00)
[2022-08-10] MEDS ORDERED: MoRPHine SULFATE 4 MG/ML 1 ML CARP\\VIAL IV STA (14:59)
--- NOTE | 2022-08-10 15:41 | Discharge Summary ---
Date of Service August 10, 2022 Admission HPI Per Admitting Provider This patient is an 86-year-old male with history of idiopathic pulmonary fibrosis on chronic oxygen, recent COVID-19 infection and pneumomediastinum, HTN, paroxysmal atrial fibrillation on Coumadin, aortic valve replacement, CAD s/p CABG, oropharyngeal dysphagia, hyperlipidemia, gout who presents to the ER with rectal pain. He has been struggling with constipation since his last discharge and was seen in the ER on 07/31 for the same thing and had a rectal disimpaction performed by the ER doctor. He has not really had much of a bowel movement at all since that time. He was also retaining urine and had a Everett catheter placed at that time. He did recently finish antibiotics and a prednisone taper since his recent hospitalization. He was also on guaifenesin with codeine during that hospitalization and this was prescribed on discharge which he reports he took for about a week. He has been using a fiber daily no other laxatives in the meantime. He denies any nausea or vomiting. Only having mild lower abdominal pain and a burning sensation in the rectum. He is also been dealing with the recently opened sacral wound which is painful. In the ER, he initially was hypotensive and was brought back for septic work-up which turned out to only show a possible UTI. He was given IV fluids and his blood pressures improved and remained that way. He did not have a fever. His CT of the abdomen/pelvis did show moderate to extensive colonic fecal retention most pronounced in the rectosigmoid colon with distention of the rectum up to 9 cm and mild perirectal inflammatory stranding consistent with stercoral colitis. His WBC count was mildly elevated at 12 likely secondary to recent prednisone taper. He was given a glycerin suppository, IV Tylenol for pain, ceftriaxone for the UTI, a dose of milk of magnesia, and 1.5 L of normal saline. He did not have a bowel movement yet in the ER and continued to have pain. As per ER physician report, he had no stool in the rectal vault when suppository was placed. He will be admitted for severe constipation and stercoral colitis. Principal Diagnosis 1. Anemia 2. Hypotension 3. Stercoral colitis 4. Urinary retention with hematuria Discharge Exam GENERAL: 86 yo Well-developed, emaciated frail elderly WM. NAD. LUNGS: Clear to auscultation bilaterally. No W/R/R. CARDIOVASCULAR: Regular rate and rhythm. ABDOMEN: Soft, non-tender and non-distended. BS normoactive x 4 quad. : everett draining clear yellow urine EXTREMITIES: No edema. Non-tender. Peripheral pulses +2/4. NEUROLOGIC: A&O x3. Nonfocal PSYCHIATRIC: Cooperative. Appropriate mood and affect. SKIN: Warm, dry, intact. No rashes or lesions. Discharge Data Allergies Allergy/AdvReac Type Severity Reaction Status Date / Time No Known Allergies Allergy Verified 07/31/22 16:40 Consultations 08/06/22 10:23 ED Decision to Admit Stat 08/06/22 12:10 Consult Urology Routine 08/09/22 19:08 Consult Palliative Care Routine Ordered Studies Chest X-Ray 08/06/22 05:24 XR chest 1V portable HISTORY: 86 years-old Male Sepsis acute sepsis COMPARISON: CT abdomen and pelvis of same day, acute abdominal series radiographs 07/31/2022 TECHNIQUE: AP view of the chest FINDINGS: Cardiomediastinal and hilar silhouettes are within normal limits. Prior median sternotomy with cardiac valvular prosthesis. Left subclavian pacer. Hyperinflation with chronic interstitial lung disease redemonstrated. There is no pneumothorax, pleural effusion, new airspace consolidation or overt pulmonary edema. Degenerative changes of the shoulders and spine. IMPRESSION: 1. No acute processes of the chest. 2. Chronic interstitial lung disease. ACT 112: Negative or not required by law. The above report was generated using voice recognition software. It may contain grammatical, syntax or spelling errors. Electronically signed by: aRfa Jackson M.D. 08/06/2022 7:14 AM Abdomen/Pelvis CT 08/06/22 05:[address] WITH IV CONTRAST CT DOSE: 282.50 mGy.cm HISTORY: Acute generalized abdominal pain with constipation constipation, rectal pain TECHNIQUE: Multiaxial CT images of the abdomen and pelvis were performed following the IV administration of 88 cc of Optiray, A dose lowering technique was utilized adhering to the principles of ALARA. COMPARISON STUDY: CT abdomen and pelvis 06/05/2022 FINDINGS: Partially imaged pacer leads. Coronary artery calcifications. Chronic interstitial lung disease within the lung bases redemonstrated. Study is degraded by respiratory motion artifact. Unremarkable spleen, atrophic pancreas and left adrenal gland. Calcifications of the right adrenal gland. Cholecystectomy. Unremarkable liver. Patent portal vein. There are a few cysts noted within the kidneys measuring up to 1.9 cm on the left. No hydronephrosis. Decompressed urinary bladder with a Everett catheter in place. Air within the bladder lumen is likely secondary to instrumentation. Urinary bladder wall thickening. Prostamegaly. Extensive atherosclerosis of the aorta and branch vessels. Saccular infrarenal aneurysm dilation of the abdominal aorta redemonstrated without evidence of rupture measuring 4.4 x 4.6 cm. Mild fusiform dilation of the bilateral common iliac arteries measuring up to 1.4 cm on the right and 1.8 cm on the left. No lymphadenopathy identified. No small bowel obstruction. There is moderate to extensive colonic fecal retention, most pronounced in the rectosigmoid. Distention of the rectum measures up to approximately 9 cm. Mild perirectal inflammatory stranding with decreased wall thickening compared to the prior study. Unremarkable soft tissues. Degenerative changes of the spine, pelvis and hips. IMPRESSION: 1. No bowel obstruction or pneumoperitoneum. 2. Moderate to extensive colonic fecal retention resulting in distention of the rectosigmoid. Mild associated perirectal stranding may represent a component of stercoral proctitis. 3. Chronic interstitial lung disease. 4. 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 No evidence of aneurysm rupture. 5. Additional findings as above. ACT 112: Negative or not required by law. The above report was generated using voice recognition software. It may contain grammatical, syntax or spelling errors. Electronically signed by: Rafa Jackson M.D. 08/06/2022 7:26 AM KUB X-Ray 08/09/22 20:16 KUB HISTORY: Acute chest and abdominal pain abd pain COMPARISON: Chest radiograph of same day, CT abdomen and pelvis 08/06/2022 FINDINGS: Nonobstructive bowel gas pattern with moderate fecal retention. Surgical clips of the upper abdomen. No renal calculi. No ureteral calculi. No pneumoperitoneum or pneumatosis. Atherosclerosis with aneurysmal dilation of the abdominal aorta redemonstrated. Degenerative changes of the spine, pelvis and hips. No fracture. IMPRESSION: Moderate fecal retention with nonobstructive bowel gas pattern. ACT 112: Negative or not required by law. The above report was generated using voice recognition software. It may contain grammatical, syntax or spelling errors. Electronically signed by: Rafa Jackson M.D. 08/09/2022 8:47 PM Chest X-Ray 08/09/22 20:23 XR chest 1V portable HISTORY: 86 years-old Male covid pneumonia acute shortness of breath COMPARISON: Chest radiograph 08/06/2022 TECHNIQUE: AP view of the chest FINDINGS: Cardiac silhouette is enlarged. Prior median sternotomy with cardiac valvular prosthesis. Left subclavian pacer. Chronic interstitial lung disease. No pneumothorax, pleural effusion or lobar airspace consolidation. Degenerative changes of the shoulders and spine. Surgical clips of the upper abdomen. IMPRESSION: 1. No acute processes of the chest. 2. Chronic interstitial lung disease. ACT 112: Negative or not required by law. The above report was generated using voice recognition software. It may contain grammatical, syntax or spelling errors. Electronically signed by: Rafa Jackson M.D. 08/09/2022 8:48 PM Abdomen/Pelvis CT 08/09/22 21:[address] WITHOUT CONTRAST CT DOSE: 288.94 mGy.cm HISTORY: Rectal pain. Assess for perforation. TECHNIQUE: Multiaxial CT images of the abdomen and pelvis were performed without contrast. A dose lowering technique was utilized adhering to the principles of ALARA. COMPARISON STUDY: Abdomen and pelvis CT 08/06/2022. FINDINGS: Pulmonary fibrosis with traction bronchiectasis again noted within the lung bases. Progressive interstitial thickening and patchy bibasilar densities are noted. This likely represents a pneumonia. The heart remains enlarged. Aortic valve prosthesis and pacemaker wires are partially visualized. No pneumoperitoneum. No pneumatosis. No acute fractures within the visualized osseous structures. Cholecystectomy. Trace perihepatic ascites. The unenhanced liver, spleen, adrenal glands, and pancreas are unremarkable. There is a punctate stone within the left kidney. No ureteral stones. No hydronephrosis. Normal right kidney. No retroperitoneal lymphadenopathy. Unchanged saccular aneurysm dilatation of the infrarenal abdominal aorta measuring up to 4.6 cm. No retroperitoneal hemorrhage identified. The bladder is decompressed by Everett catheter. This likely accounts for the gas within the bladder. The prostate gland remains enlarged. There is a change in the large rectal stool ball measuring up to 11 cm in size. There is a large amount of stool seen throughout the remaining mildly distended colon most pronounced within the distal sigmoid colon. No dilated loops of small bowel identified. Mild perirectal edema is noted. This remains unchanged. There is mild thickening of the distal sigmoid colon and rectum for the degree of distention. This suggests a stercoral colitis. No extraluminal gas to suggest a perforation. IMPRESSION: 1. Large amount well-formed stool seen throughout the colon including a large rectal stool ball measuring up to 11 cm in size. There is mild associated perirectal fat stranding and questionable thickening of the distal sigmoid colon and rectum. Therefore, this could represent a stercoral colitis. No pneumatosis or pneumoperitoneum identified at this time to suggest a perforation. Overall, this is similar to the prior study. 2. Chronic interstitial lung disease with progressive patchy bibasilar airspace opacities. This likely represents a pneumonia. 3. Unchanged saccular aneurysmal dilatation of the infrarenal abdominal aorta measuring 4.6 cm. 4. Additional findings as described above. ACT 112: Negative or not required by law. Electronically signed by: Rainer Charles M.D. 08/10/2022 7:50 AM Hospital Course (1) Anemia: Hemoglobin baseline is 11, macrocytic - B12/folate wnl * Does have low iron/trans % sat, however unsaturated IBC not elevated * Defer PO iron supplementation for now to prevent worsening constipation - hgb 11.1--> 9.6, but had been on IVF for dehydration, also with hematuria also likely contributing from supratheurapeutic INR - Hgb dropped to 7.5 08/08/2022 and was transfused 1 unit of PRBCs. Hemoglobin is over 10 this morning - Follow serial H&H - Previously d/w urology. They do not feel significant blood loss is stemming from tract - Trace brown streaks but no clear bowel movement - Continue Protonix 40mg BID (2) Stercoral colitis: Presents with severe rectal pain and severe constipation with evidence of stercoral proctitis - Was recently on cough syrup with codeine which could also be contributing as well as poor p.o. intake and immobility - Attempts at disimpaction in the ER on admission showed that the rectal vault was empty - Clear liquid diet ordered with bowel regimen (given bisacodyl suppository, fleets enema) - Continues on miralax Q6H, senna/docusate - Given 2 sodium phosphate enemas - Multiple loose BM, no further abd pain. No n/v reported and tolerating diet. - Labs with resolution of leukocytosis, no fevers - Tolerating diet, will d/c further IVF fluids to prevent overload - Advance diet as tolerated, family wanting to take patient home with 24hr care with daughter and assistance with her 2 brothers - Today, patient talked about terminating treatment. - Patient did have outpatient palliative medicine consult but missed appointment. He then had a telephone visit with [facility] palliation team and stated he did not want to be hospice at that time. He is scheduled for outpatient palliative medicine consult 08/27/2022. In the meantime, will consult our palliative team as patient may wish to terminate treatment while an inpatient. (3) Urinary retention: - continue Everett placed 1 week ago for urinary retention noted in the ER likely related to severe constipation - Continue tamsulosin - Follow-up with urology after discharge for trial of void - Could be related to constipation - Family request urology consultation, does have some akhtar red hematuria in the Everett bag and is on Coumadin * agreed to continue flomax HS, maintain everett at this time until bowel function improves. * keeping everett in for now given ongoing hematuria, roll repairer in bag. INR 3.9 and Coumadin placed on hold (hx AVR) (4) Hyponatremia: Sodium mildly low at 132, TSH WNL - Not significantly low enough to warrant aggressive w/u - If sodium continues to drop, consider urine/serum osmol (5) Decubitus ulcer of sacral area: Stage II decubitus ulcer, no evidence of infection on examination per previous team - Wound care consult, offload pressure, OPTi foam (see imaging) (6) Low BMI: with severe protein calorie malnutrition - BMI quite low at 16.4 - Could be secondary to chronic dysphagia and issues with swallowing as well as chronic lung disease - Nutrition consult will likely be reflexive - Add multivitamin and thiamine -Palliative medicine consult would be appropriate. This been placed. Will await their comment (7) IPF (idiopathic pulmonary fibrosis): Chronic, recently completed antibiotics and steroid taper - Continue home oxygen -- stable on chronic 3L - Follow with pulmonology as an outpatient - Recently saw palliative medicine with Bette as an outpatient and does not want to pursue hospice at this time (8) Swallowing dysfunction: With video swallow from 03/2021 shows severe profound pharyngeal stage dysphagia with no functional swallowing no airway protection with shannon aspiration of all liquids. Recommendations are for liquids and thin pures, avoid large pills, no soft bread or pieces of meat, aspiration precautions, and outpatient speech ther apy at that time with consideration for PEG tube (9) CAD (coronary artery disease): S/p 1 vessel CABG at the time of his AVR - On metoprolol, Coumadin at home but no longer on atorvastatin - Not on aspirin presumably due to being on Coumadin - Coumadin held d/t (10) Paroxysmal A-fib: In a V paced rhythm here. Recent cardiology notes show that he has not had any A. fib for several years on pacer interrogation - On Coumadin but INR slightly supratherapeutic - Continue to hold coumadin for today (held on admission), INR 3.9 - Monitor hematuria, INR in AM, restart as able - With history of aortic valve replacement - No need to monitor on telemetry (11) HTN (hypertension): Blood pressures are controlled - Continued home metoprolol (12) AAA (abdominal aortic aneurysm): Noted incidentally on CT abdomen/pelvis-infrarenal 4.6 cm unchanged from previous no evidence of rupture Plan Patient and family discussed wanting to terminate treatment. Overnight on 08/09, pt had worsening hypotension, refractory to fluids and IV albumin. He was cheng sferred to PCU and underwent CT AP w/o evidence of perforation. Pt as seen this AM (08/10) by palliative medicine physician, Dr. Alegre, plan was to terminate treatment and start on comfort measures. Home medications were discontinued and comfort orders were placed. This afternoon, I received a message from his nurse stating that he was adamant that he wanted to be discharged in order to go home and . It was discussed the concern for his pain not being controlled and wanting to ensure that he was comfortable prior to discharging him home with hospice. Family has insisted that he is comfortable and that this is what he wants and is requesting he be discharged with hospice care initiated as soon as possible. I have reached out to case management and they d/w [facility] who can deliver a hospital bed and do his admission this evening. Will d/c him home with hospice care on following comfort meds: Roxanol, Ativan, and Haldol. Plan has been d/w Dr. Browning who has also seen and evaluated this patient prior to discharge. Total Time Total Time Spent Total Time Spent (In Minutes): >30 minutes Discharge Plan Discharge Items Patient Disposition: Hospice - Home Reason For Visit: CONSTIPATION Discharge Diagnosis: severe constipation comfort measures Condition on Discharge: Good Activity: Resume your previous activity Non-emergency contact: Primary Care Provider Call non-emergency contact if: you have any medication questions Follow-up/Referrals: Benoit Stauffer MD [Primary Care Provider] - Diet: Full liquid Addtl Attending Provider Instructions: You have elected to go home with hospice care. A referral has been made on your behalf to [facility] who will arrange for the supplies that you need and get you admitted tonight. In the mean time, I have sent medications for your comfort care/pain control to your pharmacy as listed ([facility]). Med Instructions: 1. Roxanol 15 mL by mouth every hour as needed for pain/discomfort or shortness of breath 2. Ativan 2mg, place inside cheek and may take once every 4 hours as needed for anxiety 4. Haldol 2mg, give one tablet every 4 hours as needed for agitation or nausea [facility] will be in contact with you and your family and follow up with you at home. Pending Studies at Discharge: No Stand-Alone Forms: My [facility] Medications and DC Order Prescriptions: New oxycodone 5 mg/5 mL solution 15 mg PO Q1H Qty: 500 0RF Rx Instructions: comfort measures/hospice lorazepam [Ativan] 2 mg tablet 2 mg buccal Q4H PRN (Reason: anxiety) Qty: 20 0RF Rx Instructions: comfort measures/hospice haloperidol 2 mg tablet 2 mg PO Q4H PRN (Reason: nausea and vomiting, agitation, terminal delirium) Qty: 20 0RF Rx Instructions: comfort measures/hospice haloperidol 2 mg tablet 2 mg PO Q4H PRN (Reason: nausea and vomiting) Qty: 20 0RF Rx Instructions: nausea/vomiting, agitation, terminal delirium lorazepam 2 mg tablet 2 mg PO Q4H PRN (Reason: anxiety) Qty: 20 0RF Rx Instructions: anxiety, agitation oxycodone 5 mg/5 mL solution 15 mg PO .q2 PRN (Reason: pain) Qty: 473 0RF Continued (DME) Oxygen Home Liters Per Minute See Rx Instructions .ROUTE .MEDSUPPLY Qty: 4 0RF Rx Instructions: Continuously humidified oxygen at 4 L/min via nc with exertion and at night (DME) Portable Oxygen Misc See Rx Instructions .Route Qty: 1 0RF Rx Instructions: Test for conserving device - 2 L/min via nasal cannula, lifetime need of 99 years (DME) Oxygen Home Liters Per Minute See Rx Instructions .ROUTE Qty: 4 0RF Rx Instructions: As directed Discontinued metoprolol succinate 50 mg tablet extended release 24 hr 25 mg PO QAM Qty: 90 3RF tamsulosin 0.4 mg capsule 0.4 mg PO HS Benefiber (guar gum) 1 gram Tablet 1 g PO DAILY warfarin 3 mg tablet See Rx Instructions .ROUTE .COMPLEX Protocol: Dose Management Condition: Saturday Dose/Route: 1.5 mg Instruction: 0.5 x 3 mg tablets Condition: Saturday Dose/Route: 3 mg Instruction: 1 x 3 mg tablet Condition: Saturday Dose/Route: 1.5 mg Instruction: 0.5 x 3 mg tablets Condition: Saturday Dose/Route: 3 mg Instruction: 1 x 3 mg tablet Condition: Dose/Route: 1.5 mg Instruction: 0.5 x 3 mg tablets Condition: Saturday Dose/Route: 3 mg Instruction: 1 x 3 mg tablet Condition: Saturday Dose/Route: 1.5 mg Instruction: 0.5 x 3 mg tablets Protocol Text: Adjustment Start Date: Saturday07/17/22 INR Value: 2.8 INR Date: 07/17/22 Recheck Date: 07/31/22 Rx Instructions: 3 mg orally ; TAKES 3 MG ON SAT, SAT & SAT. THEN 1.5 MG ON SAT, , , & SAT. TAKES QPM. Discharge Orders: Discharge Order (Routine); Ordered 08/10/22 Ordered By: Rosemary Blue Admission Data Admit Date/Time: 08/06/22 11:09 Attending Provider: Nirmal Browning Admit Provider: Priya Rose Primary Care Provider: Benoit Stauffer Other Providers: Priya Rose ; Hank Mondragon ; Priscila Alegre ; [facility] Other Interventions: Discharge Summary Assessment (RN) Last Done: 08/10/22 16:37 Supervising Physician Co-Signing Physician Notes I personally examined the patient and verified all mathew points of history and exam, discussed case, and agree with decision making with Germania Blue PAC wants to go home, palliative goals vitals noted nad heent nc at mmm breathign unlabored no accessory muscles good effort for home, palliative goals Coding Level of Care Code D/C DAY MANAGEMENT >30 MINS Diagnoses Anemia D64.9 Stercoral colitis K52.89 Urinary retention R33.9 Hyponatremia E87.1 Decubitus ulcer of sacral area L89.159 Low BMI IPF (idiopathic pulmonary fibrosis) J84.112 Swallowing dysfunction R13.10 CAD (coronary artery disease) I25.10 Associated angina: without angina Coronary Disease-Associated Artery/Lesion type: [place] artery [place] vs. transplanted heart: [place] heart Paroxysmal A-fib I48.0 HTN (hypertension) I10 AAA (abdominal aortic aneurysm) I71.40
== END 2022-08-10 17:26 | disposition hospice, home (50) | DRG 391 ==
LOC: ED 04:58 → 3W 11:09 → SUATTDRO 11:09 → 3W 11:47 → 2S 08-10 01:48